=== PATIENT | female | born 1985 | race Caucasian/White ===

== ENCOUNTER 2020-11-13 15:29 | Outpatient (CLI) | payer OTHER, SELFPAY ==
--- NOTE | ~2020-11-13 | XR_ITS ---
XR hip LT min 2V DATE: 11/13/2020 15:58 INDICATION: Left hip pain. No injury. TECHNIQUE: AP, lateral, crosstable lateral views COMPARISON: None FINDINGS: No fracture or dislocation, avascular necrosis or bone destruction. Left hip joint space ap pears well preserved. IMPRESSION: Negative Reviewed, dictated and finalized at location A. IMPRESSION: Negative
== END 2020-11-13 15:30 | disposition home or self-care (01) ==
LOC: CHSIMG 15:38
DX: M25.552 Pain in left hip (principal)
CPT/HCPCS: 73502

== ENCOUNTER 2021-06-15 15:20 | Outpatient (CLI) | payer OTHER, SELFPAY ==
[2021-06-15 15:47] LABS: Basophils Absolute Auto 0.08 K/mm3 (0.00-0.10); Basophils Percent Auto 0.7 % (0.0-1.0); Eosinophils Absolute Auto 0.31 K/mm3 (0.02-0.50); Eosinophils Percent Auto 2.7 % (1.0-6.0); Hemoglobin 12.6 g/dL (12.0-15.0); Immature Granulocyte Absolute 0.05 K/mm3 (0.00-0.00); Immature Granulocyte Percent A 0.4 % (0.0-0.0); Lymphocytes Absolute Auto 3.31 K/mm3 (1.10-4.50); Lymphocytes Percent Auto 29.3 % (18.0-42.0); Mean Corpuscular HGB Conc 33.2 g/dL (32.0-36.0); Mean Corpuscular Hemoglobin 27.3 pg (27.0-31.0); Mean Corpuscular Volume 82.4 fL (78.0-102.0); Mean Platelet Volume 10.6 fl (9.2-11.8); Monocytes Absolute Auto 0.57 K/mm3 (0.10-0.90); Neutrophils Percent Auto 61.9 % (50.0-70.0); Platelet Count Result 308 K/mm3 (150-420); Red Blood Count 4.61 M/mm3 (4.20-5.40); Red Cell Distribution Width 12.8 % (11.6-14.4); White Blood Count 11.3 K/mm3 (4.8-10.8)
== END 2021-06-15 15:21 | disposition home or self-care (01) ==
LOC: CHSLAB 15:21
PROVIDERS: PCP Family Medicine; Visit Provider Obstetrics & Gynecology
DX: N92.0 Excessive and frequent menstruation with regular cycle (principal)
CPT/HCPCS: 36415; 85025

== ENCOUNTER 2021-08-03 10:45 | Outpatient (CLI) | payer OTHER, SELFPAY ==
--- NOTE | ~2021-08-03 | US_ITS ---
EXAMINATION: US pelvic complete w TV DATE: 08/03/2021 11:25 INDICATION: Irregular menses, adnexal mass TECHNIQUE: Multiple transabdominal and endovaginal sonographic images of the pelvis were obtained. COMPARISON: None. FINDINGS: The uterus measures 8.1 x 4.3 x 4.8 cm. The endometrial complex measures 14 mm. The right o vary is not visualized however no right adnexal abnormality is seen. The left ovary measures 2.3 x 1. 6 cm. There is an approximately 6.6 x 5.7 x 2.5 cm cystic lesion of the left adnexa.. There is normal vascular flow in the left ovary. There is no free fluid in the pelvis. IMPRESSION: 1. 6.6 cm simple cyst of the left adnexa. Follow-up pelvic ultrasound in 8-12 weeks is recommended. Reviewed, dictated and finalized at location B. HANT KEEPER IMPRESSION: 1. 6.6 cm simple cyst of the left adnexa. Follow-up pelvic ultrasound in 8-12 w [facility] is recommended.
== END 2021-08-03 10:46 | disposition home or self-care (01) ==
LOC: CHSIMG 10:46
PROVIDERS: PCP Family Medicine; Visit Provider Family Medicine
DX: N94.89 Other specified conditions associated with female genital organs and menstrual cycle (principal)
CPT/HCPCS: 76830; 76856

== ENCOUNTER 2023-03-19 19:48 | Emergency (ER) | payer OTHER, SELFPAY ==
--- NOTE | 2023-03-19 19:50 | ED.GENADULT ---
HPI - General Adult General Chief complaint: Unspecified Stated complaint: THRUSH Time Seen by Provider: 03/19/23 19:50 Source: patient Mode of arrival: ambulatory Limitations: no limitations History of Present Illness HPI narrative: 37-year-old female a history of diabetes mellitus, neuropathy presents to the ER with a 1 week history of - oral thrush . Thrush is present on her tongue. - mouth pain -- uncontrolled blood sugars Onset (ago): week(s) ( present for the past 1 week) Location: mouth Severity: mild Pain Consistency: constant Relieving factors: none Exacerbating factors: none Associated symptoms: denies other symptoms Related Data Allergies Allergy/AdvReac Type Severity Reaction Status Date / Time No Known Allergies Allergy Verified 03/19/23 19:50 Review of Systems Review of Systems: All systems reviewed & are unremarkable except as noted in HPI and below Constitutional: Constitutional: Reports as per HPI and Reports no additional constitutional complaints Eyes: Eyes: Reports as per HPI and Reports no additional eye complaints ENT: Reports system reviewed and no additional complaints, except as documented, Reports as per HPI and Reports mouth pain Comments: oral thrush Cardiovascular: Cardiovascular: Reports as per HPI and Reports no additional cardiovascular complaints Respiratory: Respiratory: Reports as per HPI and Reports no additional respiratory complaints Gastrointestinal: Gastrointestinal: Reports as per HPI and Reports no additional gastrointestinal complaints Genitourinary: Genitourinary: Reports no additional female genitourinary complaints Musculoskeletal: Musculoskeletal: Reports no additional musculoskeletal complaints and Reports as per HPI Integumentary/Breasts: Skin/Breast: Reports system reviewed and no additional complaints, except as docu and Reports as per HPI Neurologic: Reports system reviewed and no additional complaints, except as documented and Reports as per HPI Psychiatric: Psychiatric: Reports no additional psychiatric complaints and Reports as per HPI Endocrine: Endocrine: Reports polydipsia and Reports polyuria Hematologic/Lymphatic: Hematologic/Lymphatic: Reports no additional hematologic/lymphatic complaints and Reports as per HPI Allergic/Immunologic: Allergic/Immunologic: Reports no additional allergic/immunologic complaints and Reports as per HPI PMFSH Past Medical History Medical History (Updated 03/19/23 @ 20:16 by Guzman Aguirre MD) Diabetes mellitus Peripheral neuropathy Surgical History Surgical History (Updated 03/19/23 @ 20:09 by Guzman Aguirre MD) Hx of cholecystectomy Previous section Social History Social History (Updated 03/19/23 @ 20:09 by Guzman Aguirre MD) Social History: smoker Exam Narrative: hypertension with a blood pressure of 155/96. Const: General: cooperative and no acute distress Nutritional Appearance: average body habitus Orientation/consciousness: oriented to person and oriented to place HENMT: Head: normal to inspection, normocephalic and atraumatic Ears: hearing grossly normal bilaterally, external ears normal and TM's normal bilaterally Face/Nose/Sinus: Normal external nose present and Normal nares present Face and sinus: normal facial exam Mouth: Yes Normal oral and palatal mucosa present Teeth and gingiva: dentition normal (edentulous) Throat: posterior oropharynx normal Throat image: 1. Thrush on the tongue Eyes: General: appearance normal, both eyes and all related structures Visual Soler: normal visual soler by confrontation Conjunctivae: conjunctivae normal Sclera: sclerae normal Cornea: corneas normal Pupils: Equal, round and reactive pupils present EOM: EOMs intact bilaterally Neck: Neck: normal visual inspection, full ROM, no lymphadenopathy and no meningeal signs Thyroid: thyroid normal Chest: Chest palpation & inspection: normal inspectio
[2023-03-19 19:51] VITALS: BP 158/110; PULSE 101; RESP 18; TEMP 36.3; O2SAT 98
[2023-03-19 20:05] VITALS: BP 155/96
[2023-03-19] MEDS: NYSTATIN 100,000 UNITS/ML SUSP 5 ML ORAL.SUSP PO (20:08)
[2023-03-19 20:21] VITALS: BP 155/96; PULSE 101; RESP 18; TEMP 36.3; O2SAT 98
== END 2023-03-19 20:22 | disposition home or self-care (01) ==
PROVIDERS: Emergency Provider Internal Medicine Critical Care Medicine; PCP Family Medicine
DX: B37.0 Candidal stomatitis (principal); E10.40 Type 1 diabetes mellitus with diabetic neuropathy, unspecified
CPT/HCPCS: 99283; A9270

== ENCOUNTER 2023-07-01 15:56 | Emergency (ER) | payer SELFPAY ==
--- NOTE | ~2023-07-01 | XR_ITS ---
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 RESULT: Lines, tubes, and devices: None. Lungs and pleura: Clear. Cardiomediastinal silhouette: Normal. Other: No acute osseous or upper abdominal finding. IMPRESSION: No acute cardiopulmonary process. Reviewed, dictated and finalized at location K. ER OPERATOR
[2023-07-01 15:59] VITALS: BP 152/95; PULSE 102; RESP 19; TEMP 36.5; O2SAT 100
--- NOTE | 2023-07-01 16:04 | ED.BACK ---
HPI - Back Pain/Injury General Chief Complaint: Abdominal Pain Stated Complaint: upper/lower back pain Time Seen by Provider: 07/01/23 16:01 Source: patient Mode of arrival: ambulatory Limitations: no limitations History of Present Illness HPI Narrative: patient is a 38-year-old female with type 2 diabetes versus type 1 diabetes and has a right back to front chest pain for the past 2 weeks. MD elicited complaint: back pain Onset (ago): week(s) (2) Timing: constant Severity: moderate Pain scale (0-10): 6 Similar Symptoms Previously: No Quality: burning, sharp and stabbing Location: thoracic spine and right upper back Radiation: chest ( Right) Exacerbating factors: none Relieving factors: none Context: other ( diabetic) Associated symptoms: denies other symptoms Treatments prior to arrival: other ( 10s unit without help) Work related injury: No Related Data Allergies Allergy/AdvReac Type Severity Reaction Status Date / Time No Known Allergies Allergy Verified 07/01/23 17:21 Review of Systems Review of Systems: All systems reviewed & are unremarkable except as noted in HPI and below Constitutional: Constitutional: Reports no additional constitutional complaints Eyes: Eyes: Reports no additional eye complaints ENT: Reports system reviewed and no additional complaints, except as documented Cardiovascular: Cardiovascular: Reports no additional cardiovascular complaints Respiratory: Respiratory: Reports no additional respiratory complaints Gastrointestinal: Gastrointestinal: Reports no additional gastrointestinal complaints Genitourinary: Genitourinary: Reports no additional female genitourinary complaints Musculoskeletal: Musculoskeletal: Reports no additional musculoskeletal complaints Integumentary/Breasts: Skin/Breast: Reports system reviewed and no additional complaints, except as docu Neurologic: Reports system reviewed and no additional complaints, except as documented Psychiatric: Psychiatric: Reports no additional psychiatric complaints Endocrine: Endocrine: Reports no additional endocrine complaints Hematologic/Lymphatic: Hematologic/Lymphatic: Reports no additional hematologic/lymphatic complaints Allergic/Immunologic: Allergic/Immunologic: Reports no additional allergic/immunologic complaints PMFSH Past Medical History Medical History Diabetes mellitus Peripheral neuropathy Surgical History Surgical History Hx of cholecystectomy Previous section Social History Social History Social History: smoker Exam Const: General: healthy appearing Nutritional Appearance: well nourished Orientation/consciousness: patient oriented x3 HENMT: Head: normal to inspection Ears: external ears normal Face/Nose/Sinus: Normal external nose present Eyes: Conjunctivae: conjunctivae normal Pupils: Equal, round and reactive pupils present EOM: EOMs intact bilaterally Neck: Neck: normal visual inspection Chest: Chest palpation & inspection: normal inspection of the chest and tenderness ( right upper back around to the right under the breast along rib line) Resp: Effort & Inspection: normal respiratory effort and not labored Auscultation: clear to auscultation bilaterally and no crackles Cardio: Rate: regular rate Rhythm: regular rhythm Heart sounds: no murmurs GI: Inspection: non-distended GI Palp: Yes Soft to palpation and No Tenderness to palpation present (GI) Auscultation: normal bowel sounds : General: Yes bladder normal to palpation Back/Spine/Pelvis: Back: no CVA tenderness Skin: General skin exam: normal color Rashes: no rashes Wounds: no wounds Neuro: General: patient oriented x3 Cranial nerves: Yes Nystagmus not present Speech: normal speech Extrem: General: normal to inspection Psych: Mental Statu
--- NOTE | 2023-07-01 16:20 | ECG_ITS ---
Measurements Intervals [place] Rate: 92 P: 17 UT: 159 QRS: 52 QRSD: 83 T: 33 QT: 360 QTc: 446 Interpretive Statements SINUS RHYTHM LOW QRS VOLTAGE IN EXTREMITY LEADS [QRS DEFLECTION < 0.5 mV IN LIMB LEADS] SEPTAL MYOCARDIAL INFARCTION , PROBABLY OLD [40+ ms Q WAVE IN V1/V2] NO PREVIOUS ECG AVAILABLE FOR COMPARISON Electronically Signed On 07-02-2023 14:58:50 SEWING SUPERVISOR by Ginger Guevara M.D.
[2023-07-01 16:24] LABS: Pregnancy On Board Control Positive; Urine Pregnancy Test Negative
[2023-07-01 16:25] LABS: Appearance Urine Slightly Cloudy (Clear); Bilirubin Urine Negative (Negative); Blood Urine 2+ (Negative); Color Urine Light Yellow (Yellow); Glucose Urine UA 3+ (Negative); Ketones Urine Trace (Negative); Leukocyte Esterase Ur Negative LEU/UL (Negative); Nitrate Urine Positive (Negative); Protein Urine Negative (Negative); Urobilinogen Urine 0.2 mg/dL (0.2-1.0); pH Urine 7.5 (5.0-8.0)
[2023-07-01 16:27] LABS: Add Urine Microscopic? YES; Bacteria Urine 3+ /hpf; Squamous Epithelial Cell Urine Rare /hpf (Few); WBC Urine None seen /hpf (0-3)
[2023-07-01 16:36] LABS: Basophils Absolute Auto 0.09 K/mm3 (0.00-0.10); Basophils Percent Auto 0.7 % (0.0-1.0); Eosinophils Absolute Auto 0.35 K/mm3 (0.02-0.50); Eosinophils Percent Auto 2.9 % (1.0-6.0); Hematocrit 40.6 % (35.0-49.0); Hemoglobin 13.9 g/dL (12.0-15.0); Immature Granulocyte Absolute 0.05 K/mm3 (0.00-0.00); Immature Granulocyte Percent A 0.4 % (0.0-0.0); Lymphocytes Absolute Auto 2.94 K/mm3 (1.10-4.50); Lymphocytes Percent Auto 24.3 % (18.0-42.0); Mean Corpuscular HGB Conc 34.2 g/dL (32.0-36.0); Mean Corpuscular Hemoglobin 27.7 pg (27.0-31.0); Mean Corpuscular Volume 80.9 fL (78.0-102.0); Mean Platelet Volume 10.7 fl (9.2-11.8); Monocytes Absolute Auto 0.69 K/mm3 (0.10-0.90); Monocytes Percent Auto 5.7 % (2.0-11.0); Platelet Count Result 298 K/mm3 (150-420); Red Blood Count 5.02 M/mm3 (4.20-5.40); Red Cell Distribution Width 12.9 % (11.6-14.4); White Blood Count 12.1 K/mm3 (4.8-10.8)
[2023-07-01 16:52] LABS: D Dimer < 0.19 mg/L (0.19-0.50)
[2023-07-01 16:53] LABS: Alkaline Phosphatase 126 U/L (46-116); Anion Gap 23 mmol/L (8-16); Bilirubin,Total 0.6 mg/dL (0.00-1.00); Blood Urea Nitrogen 7 mg/dL (7-18); Calcium 7.6 mg/dL (8.5-10.1); Carbon Dioxide 12 mmol/L (21-32); Chloride 93 mmol/L (98-108); Estimated Glomerular Filt Rate > 60; Lipase 35 U/L (16-77); Osmolality Calculated 281 mOsm/kg (285-295); Potassium 3.9 mmol/L (3.5-5.1); Sodium 128 mmol/L (136-145); Total Protein 7.1 g/dL (6.4-8.2); Troponin I 5.3 ng/L (0.00-60.4)
[2023-07-01 16:55] LABS: Acetone Small (Negative)
[2023-07-01 16:56] LABS: Glucose 409 mg/dL (70-99)
[2023-07-01] MEDS: INSULIN HUMAN REGULAR (*BKC) 1,000 UNITS/10 ML VIAL 8 UNITS IV PUSH (17:09)
[2023-07-01] MEDS: SODIUM CHLORIDE 0.9% IV 1,000 ML 999 ML IV CONT (17:09)
[2023-07-01 17:38] LABS: Aspartate Amino Transferase 150 U/L (15-37)
[2023-07-01 17:59] LABS: Glucose Point of Care 193 mg/dl (65-105)
[2023-07-01] MEDS: CEPHALEXIN 500 MG CAPSULE PO (18:35)
[2023-07-01 18:41] LABS: Anion Gap 22 mmol/L (8-16); Blood Urea Nitrogen 7 mg/dL (7-18); Calcium 7.3 mg/dL (8.5-10.1); Carbon Dioxide 12 mmol/L (21-32); Chloride 97 mmol/L (98-108); Estimated Glomerular Filt Rate > 60; Glucose 249 mg/dL (70-99); Osmolality Calculated 278 mOsm/kg (285-295); Sodium 131 mmol/L (136-145)
[2023-07-01 18:42] VITALS: BP 129/89; PULSE 84; RESP 19; O2SAT 98
[2023-07-01 18:47] LABS: Acetone Negative (Negative)
[2023-07-01 19:32] LABS: Device ROOM AIR; HCO3 VBG 24.3 mEq/l (24.0-30.0); PCO2 VBG 41.7 mmHg (42.0-48.0); PO2 VBG 37.4 mmHg (35.0-45.0); pH VBG 7.38 (7.33-7.43)
[2023-07-01 20:35] LABS: Glucose Point of Care 178 mg/dl (65-105)
[2023-07-01 20:37] VITALS: BP 135/81; PULSE 79; RESP 16; TEMP 36.7; O2SAT 98
[2023-07-01] MEDS: DEXTROSE 5%/0.45% SOD CHL 1,000 ML 125 ML IV CONT (20:42)
--- NOTE | 2023-07-03 14:28 | PC.NURSE ---
URINE CULTURE PRELIMINARY SHOWED +E COLI REVIEWED WITH DR WARNER AND ORDERS FOR BACTRIM DS BID FOR 7 DAYS GIVEN PT CONTACTED AND RX CALLED TO [facility] IN [place]
--- NOTE | 2023-07-04 12:25 | PC.NURSE ---
Final culture report, Escherichia coli, Patient put on bactrim yesterday. culture is susceptible, no change per Dr. Muller
== END 2023-07-01 21:17 | disposition short-term general hospital (02) ==
PROVIDERS: Emergency Provider Emergency Medicine; PCP Family Medicine
DX: G62.9 Polyneuropathy, unspecified (principal); E11.10 Type 2 diabetes mellitus with ketoacidosis without coma; E11.41 Type 2 diabetes mellitus with diabetic mononeuropathy; N30.01 Acute cystitis with hematuria
CPT/HCPCS: 36415; 71046; 80048; 80053; 81001; 81025; 82010; 82803; 82948; 83690; 84484; 85025; 85380; 87077; 87086; 87088; 87186; 93005; 96361; 96374; 99285; A9270; J1815; J7030

== ENCOUNTER 2023-07-01 22:33 | Observation (INO) | payer SELFPAY ==
--- NOTE | ~2023-07-01 | CT_ITS ---
Non-contrast CT scan of the Abdomen and Pelvis Clinical indication: Abdominal pain Technique: 2.5 mm axial scans were obtained through the abdomen and pelvis without intravenous or or al contrast. Dose reduction technique was used on this scan by utilizing automated exposure control a nd iterative reconstruction technique. The dose-length product (DLP) was 519.44 mGy-cm. Findings: Images through the lung bases reveal no abnormalities. There is no evidence of renal or ureteral calculi. The kidneys and the ureters are nondilated. The liver, spleen, pancreas, gallbladder, and adrenals appear normal. There is no aortic aneurysm. There is no evidence of bowel obstruction. Images through the pelvis were performed. Small amount of pelvic free fluid present. Urinary bladder unremarkable. No pelvic mass seen. Impression: Small amount of pelvic free fluid, nonspecific. No other significant findings. Reviewed, dictated and finalized at [facility]. ETING COMMUNICATIONS LEADER Impression: Small amount of pelvic free fluid, nonspecific. No other significant findings.
[2023-07-01 22:10] VITALS: BP 161/92; PULSE 96; RESP 16; TEMP 36.8; O2SAT 100; BMI 24.9
--- NOTE | 2023-07-01 22:30 | ADMGEN ---
This patient, Eduarda Payne, was admitted to Intensive Care Unit-4. Patient/family oriented to hospital policies and general routines including ID bracelet, bed and alarms, visiting hours, pain management, procedures, bathroom and other care routines, personal items, smoking policy, room service/diet, and visiting hours. Information on how to activate the Rapid Response Team has been discussed. Patient/Family are encouraged to report perceived risks to care and to ask questions if they do not understand what they are told or what they should do.
[2023-07-01 22:32] LABS: Glucose Point of Care 164 mg/dl (65-105)
[2023-07-01 22:49] LABS: Hematocrit 38.3 % (37.0-47.0); Hemoglobin 12.9 g/dL (12.0-15.0); Mean Corpuscular HGB Conc 33.7 g/dl (32-36); Mean Corpuscular Volume 83.1 fl (80-100); Mean Platelet Volume 10.7 fl (7.4-10.4); Platelet Count Result 253 k/mm3 (150-375); Red Blood Count 4.61 M/mm3 (4.2-5.4); Red Cell Distribution Width 13.2 % (11.5-14.5); White Blood Count 9.4 K/mm3 (4.5-10.0)
--- NOTE | 2023-07-01 22:57 | PM.IMHP ---
H&P: HPI History of Present Illness Date/Time: 07/01/23 22:57 Chief Complaint: Epigastric pain Narrative: This is a 38-year-old female with past medical history significant for insulin-dependent diabetes mellitus, tobacco dependence. Patient presents as a transfer from outside facility after presented to emergency room due to abdominal pain for 2 weeks denies any fevers, rigors, chills has not been using her Lantus insulin for a month or so. preliminary workup was significant for sodium 131 bicarb 12 anion gap 22. Patient was transfer to ICU. EXAMINATION:? XR chest 2V Exam Date/Time:? 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 Comparison:? None. RESULT: Lines, tubes, and devices:? None. Lungs and pleura:? Clear. Cardiomediastinal silhouette:? Normal. Other:? No acute osseous or upper abdominal finding. ? IMPRESSION: No acute cardiopulmonary process. Review of Systems Review of Systems: Abdominal pain Constitutional: Constitutional: Denies chills, Denies fever(s), Denies malaise, Reports poor appetite and Denies weakness Eyes: Eyes: Denies change in vision ENT: Denies dysphagia and Denies odynophagia Cardiovascular: Cardiovascular: Denies chest pain, Denies leg edema, Denies radiating jaw, neck or arm pain and Denies palpitations Respiratory: Respiratory: Denies cough and Denies dyspnea Gastrointestinal: Gastrointestinal: Reports abdominal pain, Denies dyspepsia, Denies heartburn, Denies diarrhea, Denies nausea and Denies vomiting Genitourinary: Genitourinary: Denies dysuria and Denies flank pain Musculoskeletal: Musculoskeletal: Denies myalgias and Denies muscle weakness Integumentary/Breasts: Skin/Breast: Denies rash Neurologic: Denies focal weakness and Denies Sensory deficit (Neuro) Psychiatric: Psychiatric: Reports no additional psychiatric complaints and Reports as per HPI Endocrine: Endocrine: Denies cold intolerance, Denies flushing, Denies heat intolerance, Denies polyphagia, Denies polydipsia and Denies palpitations Hematologic/Lymphatic: Hematologic/Lymphatic: Reports no additional hematologic/lymphatic complaints and Reports as per HPI Allergic/Immunologic: Allergic/Immunologic: Reports no additional allergic/immunologic complaints and Reports as per HPI [facility] Past Medical History Medical History (Updated 07/02/23 @ 02:11 by Melani Lang MD) Diabetes mellitus DKA, type 2 Peripheral neuropathy Surgical History Surgical History Hx of cholecystectomy Previous section Family History Family History (Updated 07/01/23 @ 22:26 by Darwin Vasquez RN) Father Hypertension Diabetes mellitus Mother Hypertension Diabetes mellitus Sibling Hypertension Diabetes mellitus Social History Social History Social History: smoker Smoking packs per day: 0.5 Smoking cigarettes per day: 10.0 Years smoked: 10 Smoking pack-years: 5.00 Smoking status: Current every day smoker Alcohol intake: former Substance use: never Do You Feel Safe in your Home?: Yes Lack of Transportation: No Lack of Food: Never True Current Housing: I Have Housing Concerned About Future Housing: No Difficulty Paying Gas/Electric Bills: No Difficulty Paying for Meds: No Currently Unemployed: No Education: High School Diploma/GED Difficulty w/ Childcare or Family Care: No Spiritual care concerns: No Meds Home Medications and Allergies Home Medications Medication Instructions Recorded Confirmed Type empagliflozin 10 mg tablet 10 mg PO DAILY 07/01/23 07/01/23 History (Jardiance) insulin glargine 100 unit/mL (3 30 unit subcut DAILY 07/01/23 07/01/23 History mL) subcutaneous pen (Lantus Solostar U-100 Insulin) insulin lispro 100 unit/mL 10 unit subcut DAILY 07/01/23 07/01/23 History subcutaneous pen
[2023-07-01 23:03] LABS: Alanine Aminotransferase 13 U/L (6-35); Albumin Level 3.4 g/dL (3.5-5.1); Alkaline Phosphatase 111 U/L (38-126); Anion Gap 4 mmol/L (8-16); Aspartate Amino Transferase 17 U/L (14-36); Bilirubin,Total 0.5 mg/dL (0.2-1.3); Blood Urea Nitrogen 7 mg/dL (7-17); Carbon Dioxide 21 mmol/L (22-30); Chloride 108 mmol/L (98-107); Estimated CRCL calculation 124 ml/min; Estimated Glomerular Filt Rate > 60; Glucose 143 mg/dL (65-110); Phosphorus 3.1 mg/dL (2.5-4.5); Potassium 3.7 mmol/L (3.4-5.0); Sodium 133 mmol/L (137-145)
[2023-07-01 23:17] LABS: Lipase 43 U/L (23-300)
[2023-07-01 23:23] LABS: Hemoglobin A1C 12.1 % (<5.7)
[2023-07-01] MEDS: HYDROmorphone HCL INJ (*CRX) 1 MG/ML SYR IV PUSH (23:31)
[2023-07-01] MEDS: INSULIN GLARGINE (*BKC) 100 UNITS/ML 30 UNITS SUB-Q (23:34)
[2023-07-01 23:48] VITALS: PULSE 83
[2023-07-01 23:51] VITALS: BP 143/93; PULSE 85; PULSE 89; RESP 14; RESP 16; O2SAT 100; O2SAT 98
--- NOTE | 2023-07-02 01:02 | ADMGEN ---
This patient, Eduarda Payne, was admitted to Intensive Care Unit-4 on 07/01/23 at 2153. Patient/family oriented to hospital policies and general routines including ID bracelet, bed and alarms, visiting hours, pain management, procedures, bathroom and other care routines, personal items, smoking policy, room service/diet, and visiting hours. Information on how to activate the Rapid Response Team has been discussed. Patient/Family are encouraged to report perceived risks to care and to ask questions if they do not understand what they are told or what they should do.
[2023-07-02 02:00] VITALS: BP 137/87; PULSE 78; RESP 14; O2SAT 97
[2023-07-02 02:01] LABS: Glucose Point of Care 150 mg/dl (65-105)
--- NOTE | 2023-07-02 02:50 | PC.NURSE ---
Patient transfer received from ICU via wheel chair at 0245 on 07/02/23. Report received from LENY Wisdom.
[2023-07-02 02:59] VITALS: BP 152/89; PULSE 84; RESP 17; TEMP 36.6; O2SAT 100
[2023-07-02 05:16] VITALS: BP 129/79; PULSE 86; RESP 16; TEMP 36.6; O2SAT 100
[2023-07-02 05:28] LABS: Hematocrit 37.9 % (37.0-47.0); Hemoglobin 12.6 g/dL (12.0-15.0); Mean Corpuscular HGB Conc 33.2 g/dl (32-36); Mean Corpuscular Hemoglobin 27.9 pg (26-34); Mean Platelet Volume 10.9 fl (7.4-10.4); Platelet Count Result 241 k/mm3 (150-375); Red Blood Count 4.51 M/mm3 (4.2-5.4); Red Cell Distribution Width 13.2 % (11.5-14.5); White Blood Count 9.9 K/mm3 (4.5-10.0)
[2023-07-02 05:36] LABS: Anion Gap 6 mmol/L (8-16); Blood Urea Nitrogen 6 mg/dL (7-17); Calcium 8.1 mg/dL (8.4-10.2); Carbon Dioxide 20 mmol/L (22-30); Chloride 108 mmol/L (98-107); Estimated CRCL calculation 150 ml/min; Estimated Glomerular Filt Rate > 60; Glucose 139 mg/dL (65-110); Potassium 3.9 mmol/L (3.4-5.0); Sodium 134 mmol/L (137-145)
[2023-07-02] MEDS: ACETAMINOPHEN 500 MG TABLET 1000 MG PO (05:53)
[2023-07-02 06:03] LABS: Lactic Acid Reflex 0.8 mmol/L (0.7-2.0)
[2023-07-02 08:36] LABS: Glucose Point of Care 193 mg/dl (65-105)
[2023-07-02 09:48] LABS: LDL Cholesterol Direct 38 mg/dL
[2023-07-02 09:50] VITALS: BP 119/80; PULSE 88; RESP 16; TEMP 36.6; O2SAT 100
[2023-07-02 11:04] LABS: Triglycerides > 2625 mg/dL (<150)
[2023-07-02 11:07] LABS: Cholesterol 297 mg/dL (0-200)
--- NOTE | 2023-07-02 11:45 | PM.DS ---
DS: Admitting Diagnosis Discharge Date 07/02/2023 Admitting Diagnosis Hyperglycemia DS: Discharge Diagnosis Discharge Diagnosis (1) DKA, type 2: Qualifiers: Diabetes mellitus complication detail: without coma Qualified Code(s): E11.10 - Type 2 diabetes mellitus with ketoacidosis without coma Code(s): E11.10 - Type 2 diabetes mellitus with ketoacidosis without coma Status: Inactive (2) Diabetes mellitus: Qualifiers: Diabetes mellitus complication detail: with mononeuropathy Diabetes mellitus complication status: with neurologic complications Diabetes mellitus residential insulin use: with terminal operations manager use Diabetes mellitus type: type 2 Qualified Code(s): E11.41 - Type 2 diabetes mellitus with diabetic mononeuropathy; Z79.4 - long term acute care registered nurse (current) use of insulin Code(s): E11.9 - Type 2 diabetes mellitus without complications Status: Acute Assessment and Plan: resume home meds (3) Hyperglycemia due to diabetes mellitus: Code(s): E11.65 - Type 2 diabetes mellitus with hyperglycemia Status: Acute (4) Hypertriglyceridemia: Code(s): E78.1 - Pure hyperglyceridemia Status: Acute (5) Hyperlipidemia: Qualifiers: Hyperlipidemia type: mixed hyperlipidemia Qualified Code(s): E78.2 - Mixed hyperlipidemia Code(s): E78.5 - Hyperlipidemia, unspecified Status: Acute (6) Non compliance w medication regimen: Code(s): Z91.148 - Patient's other noncompliance with medication regimen for other reason Status: Acute DS: Summary Hospital Course Reason for hospitalization: Hyperglycemia/Type II DKA Hospital Course: Chief Complaint: Epigastric pain Narrative: ?This is a 38-year-old female with past medical history significant for insulin-dependent diabetes mellitus, tobacco dependence.? Patient presents as a transfer from outside facility after presented to emergency room due to abdominal pain? for 2 weeks denies any fevers, rigors, chills has not been using her Lantus insulin for a month or so. preliminary workup was significant for sodium 131 bicarb 12 anion gap 22, BS 193.? Patient was transfer to ICU. Patient responded well to IV insulin and improved overnight. Patient BS was then regulated with home dosing of insulin and Gap closed. Patient reports she has not been taking her insulin but has some at home. Lipid panel showed triglycerides >2500 in overall cholesterol 297 initiated patient atorvastatin. Patient was educated on the need for medication compliance as well as diabetic Education to include exercise and diet and regular monitoring blood sugar. Patient was discharged home to follow-up with primary care physician will need follow-up A1c in 3 months. Status at Discharge Functional status at discharge: independent ambulation Overall status at discharge: patient is back to baseline Time Spent with Patient Time attestation: Total time spent providing and/or coordinating discharge services: Exam Narrative: patient is laying in bed Const: General: comfortable, no acute distress, well developed, alert, awake and average body habitus Nutritional Appearance: average body habitus Orientation/consciousness: patient oriented x3 Other: well-appearing HENMT: Head: normal to inspection, normocephalic and atraumatic Ears: hearing grossly normal bilaterally Face/Nose/Sinus: normal facial exam Face and sinus: normal facial exam Eyes: General: appearance normal, both eyes and all related structures Pupils: Equal, round and reactive pupils present EOM: EOMs intact bilaterally Neck: Neck: full ROM, no lymphadenopathy and no JVD Thyroid: thyroid normal Lymphatic: no lymphadenopathy noted Resp: Effort & Inspection: normal respiratory effort and able to speak in complete sentences Auscultation: clear to auscultation bilaterally Cardio: Jugular venous distension: no JVD Rate: regular rate Rhythm: regular rh
[2023-07-02 12:27] LABS: Glucose Point of Care 149 mg/dl (65-105)
== END 2023-07-02 13:15 | disposition home or self-care (01) ==
LOC: ANHICU 07-02 01:00 → ANH2MED 07-02 11:44 → ANHICU 07-03 07:53 → ANH2MED 07-03 07:53
PROVIDERS: Internal Medicine; Nurse Practitioner Family; Admitting Provider Internal Medicine; PCP Family Medicine; Visit Provider Internal Medicine
DX: E11.10 Type 2 diabetes mellitus with ketoacidosis without coma (principal); E11.42 Type 2 diabetes mellitus with diabetic polyneuropathy; E11.65 Type 2 diabetes mellitus with hyperglycemia; E78.2 Mixed hyperlipidemia; E78.1 Pure hyperglyceridemia; Z91.148 Patient's other noncompliance with medication regimen for other reason; F17.210 Nicotine dependence, cigarettes, uncomplicated; Z79.4 Long term (current) use of insulin; Z79.84 Long term (current) use of oral hypoglycemic drugs; Z79.899 Other long term (current) drug therapy; Z83.3 Family history of diabetes mellitus
CPT/HCPCS: 36415; 74176; 80048; 80053; 80061; 82948; 83036; 83605; 83690; 83735; 84100; 85027; A9270; G0378; G0379; J1170; J1815

== ENCOUNTER 2024-09-02 00:14 | Emergency (ER) | payer SELFPAY ==
[2024-09-02 00:18] VITALS: BP 177/96; PULSE 102; RESP 20; TEMP 36.6; O2SAT 100
[2024-09-02 00:26] LABS: Glucose Point of Care 281 mg/dl (65-105)
[2024-09-02 02:12] VITALS: BP 146/86; PULSE 89; RESP 16; TEMP 36.7; O2SAT 99
[2024-09-02] MEDS: SODIUM CHLORIDE 0.9% IV 1,000 ML 999 ML IV CONT ×2 (02:42)
[2024-09-02 02:50] LABS: Basophils Absolute Auto 0.1 K/mm3 (0.0-0.1); Basophils Percent Auto 0.9 % (0.2-1.2); Eosinophils Absolute Auto 0.3 K/mm3 (0-0.3); Eosinophils Percent Auto 2.8 % (0-4.4); Hematocrit 36.6 % (37.0-47.0); Hemoglobin 12.8 g/dL (12.0-15.0); Immature Granulocyte Absolute 0.06 K/mm3 (0.00-0.031); Immature Granulocyte Percent A 0.5 % (0-0.5); Lymphocytes Absolute Auto 4.44 K/mm3 (0.9-3.2); Lymphocytes Percent Auto 38.3 % (18.3-44.2); Mean Corpuscular Hemoglobin 30.7 pg (26-34); Mean Corpuscular Volume 87.8 fl (80-100); Mean Platelet Volume 10.9 fl (7.4-10.4); Monocytes Absolute Auto 0.7 K/mm3 (0.1-0.6); Monocytes Percent Auto 5.9 % (2.6-8.5); Neutrophils Percent Auto 51.6 % (45.5-73.1); Platelet Count Result 247 k/mm3 (150-375); Red Blood Count 4.17 M/mm3 (4.2-5.4); Red Cell Distribution Width 13.6 % (11.5-14.5); White Blood Count 11.6 K/mm3 (4.5-10.0)
[2024-09-02 02:51] LABS: BEDSIDEPREGUCG Negative (Negative)
[2024-09-02 02:54] LABS: Add Urine Microscopic? YES; Appearance Urine Cloudy (Clear); Bacteria Urine 4+ /hpf; Bilirubin Urine Negative (Negative); Blood Urine Negative (Negative); Color Urine Yellow (Yellow); Glucose Urine UA 3+ mg/dL (Negative); Ketones Urine Trace mg/dL (Negative); Leukocyte Esterase Ur 1+ LEU/UL (Negative); Nitrate Urine Negative (Negative); Protein Urine 1+ mg/dL (Negative); RBC Urine 0-2 /hpf (0-2); Specific Grav Ur 1.028 (1.001-1.035); Squamous Epithelial Cell Urine None Seen /hpf (Few); Urobilinogen Urine 0.2 mg/dL (<2.0); WBC Urine >100 /hpf (0-3); pH Urine 5.5 (5.0-9.0)
--- OUTSIDE RECORDS SUMMARY | 2024-09-02 03:12 | XMS_ITS | Clinical Summary ---
Author Organization [facility] Address [address] [place] [address] Care Team Providers Care Shorer Name Role Phone Angelo Dickson MD Primary Care Provider Allergies No known active allergies Medications gabapentin 600 MG tablet Take by mouth 3 (three) times daily. Active levothyroxine 50 MCG tablet Active metFORMIN 1000 MG tablet Active NON FORMULARYIndica tions:PT STATES IS ALSO ON LISINOPRIL, JANUVIA, LORATIDINE, ATORVASTATIN, DULOXITINE Indications: PT STATES IS ALSO ON LISINOPRIL, JANUVIA, LORATIDINE, ATORVASTATIN, DULOXITINE Active orphenadrine ER 100 MG TABLET SR 12 HR 12 hr tablet Take 1 tablet (100 mg total) by mouth 2 (two) times daily. 28 tablet 0 Active levothyroxine 137 MCG tablet 2 Active lisinopril 5 MG tablet 2 Active JANUVIA 100 MG tablet 1 Active LEVEMIR FLEXTOUCH 100 UNIT/ML flextouch PEN 2 Active glimepiride 4 MG tablet 2 Active gemfibrozil 600 MG tablet 2 Active fenofibrate 145 MG tablet 1 Active DULoxetine 30 MG capsule 2 Active atorvastatin 80 MG tablet 2 Active albuterol sulfate HFA 108 (90 Base) MCG/ACT inhaler INHALE 2 PUFFS BY MOUTH EVERY 4 TO 6 HOURS NEEDED FOR COUGH OR WHEEZING Active Active Problems No known active problems Family History Medical History Relation Comments Diabetes Father Heart Disease Father Diabetes Mother Heart Disease Mother Hyperlipidemia Mother Hypertension Mother Stroke Mother Diabetes Sister Thyroid Disease Sister Relation Status Comments Father Mother Sister Alive Social History Tobacco Use Types Packs/Day Years Used Date Smoking Tobacco: Every Day Cigarettes Smokeless Tobacco: Never Alcohol Use Standard Drinks/Week Comments Yes 0 (1 standard drink = 0.6 oz pur e alcohol) rare Comments No Sex and Gender Information Value Date Recorded Sex Assigned at Not on file Legal Sex Female 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 Gender Identity Not on file Sexual Orientation Not on file Last Filed Vital Signs Vital Sign Reading Time Taken Comments Blood Pressure 143/102 07/29/2021 9:49 PM MACHINE PACK ASSEMBLER Pulse 108 07/29/2021 9:49 PM MACHINE PACK ASSEMBLER Temperature 36.8 C (98.3 F) 07/29/2021 9:49 PM MACHINE PACK ASSEMBLER Respiratory Rate 18 07/29/2021 9:49 PM MACHINE PACK ASSEMBLER Oxygen Saturation 100% 07/30/2021 1:30 AM MACHINE PACK ASSEMBLER Inhaled Oxygen Concentration - - Weight 75.3 kg (166 lb) 07/29/2021 9:49 PM MACHINE PACK ASSEMBLER Height 168.9 cm (5' 6.5 ) 07/29/2021 9:49 PM MACHINE PACK ASSEMBLER Body Mass Index 26.39 07/29/2021 9:49 PM MACHINE PACK ASSEMBLER Plan of Treatment Health Maintenance Due Date Last Done Comments Cervical Cancer Screening Pap Smear (Age 30 to 64) Every 3 Years 1985 Annual Physical 1988 Pneumococcal Vaccine: Pediatrics (0 to 5 Years) and At-Risk Patients (6 to 64 Years) (1 of 2 - PCV) 1991 Hepatitis C 2003 DTaP, Tdap and Td Vaccines (1 - Tdap) 2004 02/01/1991, 02/24/1989, 06/28/1986, Additional history exists Hepatitis B Vaccines (1 of 3 - 19+ 3-dose series) 2004 Cervical Cancer Screening Pap with HPV Testing (Age 30 to 64) Every 5 Years 2015 Cervical Cancer Screening with HPV 2015 COVID-19 Vaccine ( - 2023-25 season) 2024 HPV Vaccines Aged Out No longer eligi ble based on patient's age to complete this topic Meningococcal B Vaccine Aged Out No l onger eligible based on patient's age to complete this topic Meningococcal Vaccine Aged Out No milka koko eligible based on patient's age to complete this topic RSV Immunizations Under 20 Months Aged Out No longer eligible based on patient's age to complete this topic Insurance Care Teams Shorer Relationship Specialty Start Date End Date Angelo Dicskon MD [address] [place] [address] PCP - General FAMILY PRACTICE 11/02/18
--- OUTSIDE RECORDS SUMMARY | 2024-09-02 03:12 | XMS_ITS | Encounter Summary ---
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
[2024-09-02 03:14] LABS: Lipase 76 U/L (23-300); Magnesium 1.5 mg/dL (1.6-2.3); Phosphorus 4.4 mg/dL (2.5-4.5)
[2024-09-02 03:15] LABS: Alanine Aminotransferase 17 U/L (6-35); Albumin Level 3.8 g/dL (3.5-5.1); Alkaline Phosphatase 126 U/L (38-126); Anion Gap 8 mmol/L (4-12); Aspartate Amino Transferase 26 U/L (14-36); Bilirubin,Total 0.5 mg/dL (0.2-1.3); Blood Urea Nitrogen 11 mg/dL (7-17); Calcium 9.3 mg/dL (8.4-10.2); Carbon Dioxide 27 mmol/L (22-30); Chloride 99 mmol/L (98-107); Creatine Kinase 685 U/L (30-135); Estimated CRCL calculation 97 ml/min; Estimated Glomerular Filt Rate > 60; Glucose 156 mg/dL (65-110); Potassium 3.8 mmol/L (3.4-5.0); Sodium 134 mmol/L (137-145)
[2024-09-02 03:16] LABS: Lactic Acid Reflex 1.1 mmol/L (0.7-2.0)
[2024-09-02 03:22] VITALS: BP 138/96; PULSE 88; RESP 17; TEMP 36.4; O2SAT 99
[2024-09-02 03:22] LABS: Beta-Hydroxybutyrate/Acetoacetate 0.06 mmol/L (0.02-0.27)
[2024-09-02] MEDS: MAGNESIUM SULF 2 GM/WATER 50ML 2 GM/50 ML BAG IVPB (03:36)
[2024-09-02 03:54] LABS: Glucose Point of Care 134 mg/dl (65-105)
--- NOTE | 2024-09-02 03:54 | ED.GENADULT ---
HPI - General Adult General Chief complaint: Unspecified Stated complaint: high blood sugar Time Seen by Provider: 09/02/24 02:07 History of Present Illness HPI narrative: Patient 39-year-old female who presents emergency department chief complaint of elevated blood sugars. Patient reports that she has not been taking her insulin or medications the way she is supposed to be patient states she has been having some muscle cramps and reports that her of blood sugars were running on the higher side patient does report that she has had DKA before the past is concerned she may be in DKA. Related Data Home Medications ?Medication ?Instructions ?Recorded ?Confirmed ?Last Taken ?Type empagliflozin 10 mg tablet 10 mg PO DAILY 07/01/23 07/01/23 Unknown History (Jardiance) insulin glargine 100 unit/mL (3 30 unit subcut DAILY 07/01/23 07/01/23 Unknown History mL) subcutaneous pen (Lantus Solostar U-100 Insulin) insulin lispro 100 unit/mL 10 unit subcut DAILY 07/01/23 07/01/23 Unknown History subcutaneous pen lisinopril 5 mg tablet 5 mg PO DAILY 07/01/23 07/01/23 Unknown History Allergies Allergy/AdvReac Type Severity Reaction Status Date / Time No Known Allergies Allergy Verified 09/02/24 02:14 Review of Systems Review of Systems: A 10 system review of systems was completed on the patient and is negative except for what is stated in the HPI. Nursing and ancillary documentation was reviewed. [facility] Past Medical History Medical History DKA, type 2 Peripheral neuropathy Diabetes mellitus Surgical History Surgical History Hx of cholecystectomy Previous section Family History Family History Father Hypertension Diabetes mellitus Mother Hypertension Diabetes mellitus Sibling Hypertension Diabetes mellitus Social History Social History Social History: smoker Smoking packs per day: 0.5 Smoking cigarettes per day: 10.0 Years smoked: 10 Smoking pack-years: 5.00 Smoking status: Current every day smoker Alcohol intake: former Substance use: never Do You Feel Safe in your Home?: Yes Lack of Transportation: No Lack of Food: Never True Current Housing: I Have Housing Concerned About Future Housing: No Difficulty Paying Gas/Electric Bills: No Difficulty Paying for Meds: No Currently Unemployed: No Education: High School Diploma/GED Difficulty w/ Childcare or Family Care: No Spiritual care concerns: No Exam Narrative: GENERAL: Well-appearing, well-nourished, and in no acute distress. HEAD: Normocephalic, atraumatic. EYES: PERRLA and EOMI. ENT: Nares clear, no rhinorrhea or epistaxis. Mucous membranes moist. NECK: Supple. CHEST: Clear to auscultation. No respiratory distress. HEART: Regular rate and rhythm. No murmur heard. Normal peripheral pulses. ABDOMEN: Soft, nontender, nondistended, normal active bowel sounds. EXTREMITIES: Normal range of motion. No edema. SKIN: Warm, dry, no rash. NEURO: No focal deficits. Alert and oriented x3. PSYCH: Normal mood and affect. Course Vital Signs Vital signs: Vital Signs Temperature 36.6 C 09/02/24 00:18 Pulse Rate 102 H 09/02/24 00:18 Respiratory Rate 20 09/02/24 00:18 Blood Pressure 177/96 H 09/02/24 00:18 Pulse Oximetry 100 09/02/24 00:18 Oxygen Delivery Room Air 09/02/24 00:18 Temperature 36.4 C 09/02/24 03:22 Pulse Rate 88 09/02/24 03:22 Respiratory Rate 17 09/02/24 03:22 Blood Pressure 138/96 H 09/02/24 03:22 Pulse Oximetry 99 09/02/24 03:22 Oxygen Delivery Room Air 09/02/24 00:18 Medical Decision Making [facility] Narrative Medical decision making narrative: Differential diagnosis includes infectious process, noncompliance, DKA, HHS Laboratory studies were obtained on the patient which showed a serum blood sugar of 156 lactic acid was 1.1 beta hydroxybutyrate was normal anion gap was normal Urinalysis was positive for urinary tract infection CPK was slightly elevated but less than 1000 Patient received IV fluids in the emergency department Patient be discharged home on Keflex and should follow up with primary care Vital Signs Vital Signs: Vital Signs Temperature 36.6 C 09/02/24 00:18 Pulse Rate 102 H 09/02/24 00:18 Respiratory Rate 20 09/02/24 00:18 Blood Pressure 177/96 H 09/02/24 00:18 Pulse Oximetry 100 09/02/24 00:18 Oxygen Delivery Room Air 09/02/24 00:18 Temperature 36.4 C 09/02/24 03:22 Pulse Rate 88 09/02/24 03:22 Respiratory Rate 17 09/02/24 03:22 Blood Pressure 138/96 H 09/02/24 03:22 Pulse Oximetry 99 09/02/24 03:22 Oxygen Delivery Room Air 09/02/24 00:18 Lab Data 09/02/24 02:43 09/02/24 02:43 Labs: Lab Results 09/02/24 09/02/24 09/02/24 Range/Units 00:24 02:41 02:43 WBC 11.6 H (4.5-10.0) K/mm3 RBC 4.17 L (4.2-5.4) M/mm3 Hgb 12.8 (12.0-15.0) g/dL Hct 36.6 L (37.0-47.0) % MCV 87.8 (80-100) fl MCH 30.7 (26-34) pg MCHC 35.0 (32-36) g/dl RDW 13.6 (11.5-14.5) % Plt Count 247 (150-375) k/mm3 MPV 10.9 H (7.4-10.4) fl Immature Gran % (Auto) 0.5 (0-0.5) % Neut % (Auto) 51.6 (45.5-73.1) % Lymph % (Auto) 38.3 (18.3-44.2) % [place] % (Auto) 5.9 (2.6-8.5) % Eos % (Auto) 2.8 (0-4.4) % Baso % (Auto) 0.9 (0.2-1.2) % Lymph # (Auto) 4.44 H (0.9-3.2) K/mm3 [place] # (Auto) 0.7 H (0.1-0.6) K/mm3 Eos # (Auto) 0.3 (0-0.3) K/mm3 Baso # (Auto) 0.1 (0.0-0.1) K/mm3 Abs Immat Gran (auto) 0.06 H (0.00-0.031) K/mm3 Absolute Neuts (auto) 6.0 (1.3-6.7) K/mm3 Absolute Nucleated RBC 0.000 (0.0-0.012) K/mm3 Nucleated RBC % 0.0 (0.0-0.2) % Sodium 134 L (137-145) mmol/L Potassium 3.8 (3.4-5.0) mmol/L Chloride 99 (98-107) mmol/L Carbon Dioxide 27 (22-30) mmol/L Anion Gap 8 (4-12) mmol/L BUN 11 D (7-17) mg/dL Creatinine 0.74 (0.7-1.0) mg/dL Estim Creat Clear Calc 97 ml/min Estimated GFR > 60 (59 - ) Glucose 156 H (65-110) mg/dL POC Capillary Glucose 281 H (65-105) mg/dl Lactic Acid 1.1 (0.7-2.0) mmol/L Calcium 9.3 (8.4-10.2) mg/dL Phosphorus 4.4 (2.5-4.5) mg/dL Magnesium 1.5 L (1.6-2.3) mg/dL Total Bilirubin 0.5 (0.2-1.3) mg/dL AST 26 (14-36) U/L ALT 17 (6-35) U/L Alkaline Phosphatase 126 (38-126) U/L Total Creatine Kinase 685 H (30-135) U/L Total Protein 8.0 (6.3-8.2) g/dL Albumin 3.8 (3.5-5.1) g/dL Lipase 76 (23-300) U/L Beta-Hydroxybutyrate/Acetoacetate 0.06 (0.02-0.27) mmol/L Urine Color Yellow (Yellow) Urine Appearance Cloudy H (Clear) Urine pH 5.5 (5.0-9.0) Ur Specific [place] 1.028 (1.001-1.035) Urine Protein 1+ H (Negative) mg/dL Urine Glucose (UA) 3+ H (Negative) mg/dL Urine Ketones Trace H (Negative) mg/dL Ur Blood (Man) Negative (Negative) Urine Nitrate Negative (Negative) Urine Bilirubin Negative (Negative) Urine Urobilinogen 0.2 (<2.0) mg/dL Leukocyte Esterase Rfl 1+ H (Negative) ADRYAN/UL Urine RBC 0-2 (0-2) /hpf Urine WBC >100 H (0-3) /hpf Ur Squamous Epith Cells None seen (Few) /hpf Urine Bacteria 4+ H /hpf Urine Casts 3-5 POC Urine HCG, Qual (Negative) 09/02/24 Range/Units 02:49 WBC (4.5-10.0) K/mm3 RBC (4.2-5.4) M/mm3 Hgb (12.0-15.0) g/dL Hct (37.0-47.0) % MCV (80-100) fl MCH (26-34) pg MCHC (32-36) g/dl RDW (11.5-14.5) % Plt Count (150-375) k/mm3 MPV (7.4-10.4) fl Immature Gran % (Auto) (0-0.5) % Neut % (Auto) (45.5-73.1) % Lymph % (Auto) (18.3-44.2) % [place] % (Auto) (2.6-8.5) % Eos % (Auto) (0-4.4) % Baso % (Auto) (0.2-1.2) % Lymph # (Auto) (0.9-3.2) K/mm3 [place] # (Auto) (0.1-0.6) K/mm3 Eos # (Auto) (0-0.3) K/mm3 Baso # (Auto) (0.0-0.1) K/mm3 Abs Immat Gran (auto) (0.00-0.031) K/mm3 Absolute Neuts (auto) (1.3-6.7) K/mm3 Absolute Nucleated RBC (0.0-0.012) K/mm3 Nucleated RBC % (0.0-0.2) % Sodium (137-145) mmol/L Potassium (3.4-5.0) mmol/L Chloride (98-107) mmol/L Carbon Dioxide (22-30) mmol/L Anion Gap (4-12) mmol/L BUN (7-17) mg/dL Creatinine (0.7-1.0) mg/dL Estim Creat Clear Calc ml/min Estimated GFR (59 - ) Glucose (65-110) mg/dL POC Capillary Glucose (65-105) mg/dl Lactic Acid (0.7-2.0) mmol/L Calcium (8.4-10.2) mg/dL Phosphorus (2.5-4.5) mg/dL Magnesium (1.6-2.3) mg/dL Total Bilirubin (0.2-1.3) mg/dL AST (14-36) U/L ALT (6-35) U/L Alkaline Phosphatase (38-126) U/L Total Creatine Kinase (30-135) U/L Total Protein (6.3-8.2) g/dL Albumin (3.5-5.1) g/dL Lipase (23-300) U/L Beta-Hydroxybutyrate/Acetoacetate (0.02-0.27) mmol/L Urine Color (Yellow) Urine Appearance (Clear) Urine pH (5.0-9.0) Ur Specific [place] (1.001-1.035) Urine Protein (Negative) mg/dL Urine Glucose (UA) (Negative) mg/dL Urine Ketones (Negative) mg/dL Ur Blood (Man) (Negative) Urine Nitrate (Negative) Urine Bilirubin (Negative) Urine Urobilinogen (<2.0) mg/dL Leukocyte Esterase Rfl (Negative) ADRYAN/UL Urine RBC (0-2) /hpf Urine WBC (0-3) /hpf Ur Squamous Epith Cells (Few) /hpf Urine Bacteria /hpf Urine Casts POC Urine HCG, Qual Negative (Negative) Discharge Plan Discharge Clinical Impression: Hyperglycemia due to diabetes mellitus, UTI (urinary tract infection) Patient Disposition: Home Condition: Stable Instructions: Antibiotic Form, Urinary Tract Infection in Women (ED), Diabetic Hyperglycemia (ED) Additional Instructions: Please follow-up with primary care as soon as possible. Please take your medications as prescribed your test today did not show any evidence of diabetic ketoacidosis. Please call your primary doctor in the morning to schedule a follow-up appointment as soon as possible Patient Language: Mauritian Prescriptions: No Action lisinopril 5 mg Tablet 5 mg PO DAILY insulin lispro 100 unit/mL insulin pen 10 unit SUBCUT DAILY Rx Instructions: with largest meal insulin glargine [Lantus Solostar U-100 Insulin] 100 unit/mL (3 mL) insulin pen 30 unit SUBCUT DAILY Jardiance 10 mg tablet 10 mg PO DAILY atorvastatin 40 mg tablet 40 mg PO HS Qty: 30 0RF Follow-up/Referrals: Angelo Dickson M.D. [Primary Care Provider] - Time of Disposition: 03:59
[2024-09-02] MEDS: CEPHALEXIN 500 MG CAPSULE PO (05:24)
== END 2024-09-02 05:29 | disposition home or self-care (01) ==
PROVIDERS: Emergency Provider Emergency Medicine; PCP Family Medicine
DX: E11.65 Type 2 diabetes mellitus with hyperglycemia (principal); N39.0 Urinary tract infection, site not specified; E11.42 Type 2 diabetes mellitus with diabetic polyneuropathy; T38.3X6A Underdosing of insulin and oral hypoglycemic [antidiabetic] drugs, initial encounter; F17.210 Nicotine dependence, cigarettes, uncomplicated; Z90.49 Acquired absence of other specified parts of digestive tract; Z79.4 Long term (current) use of insulin; Z79.84 Long term (current) use of oral hypoglycemic drugs; Z79.899 Other long term (current) drug therapy
CPT/HCPCS: 36415; 80053; 81001; 81025; 82010; 82550; 82948; 83605; 83690; 83735; 84100; 85025; 87086; 87186; 96361; 96365; 96366; 99284; A9270; J3475; J7030

== ENCOUNTER 2024-10-11 14:26 | Outpatient (CLI) | payer OTHER, SELFPAY ==
--- NOTE | ~2024-10-11 | US_ITS ---
EXAM: PELVIC ULTRASOUND HISTORY: Heavy periods COMPARISON: 08/03/2021 Reference is also made to the CT examination of the abdomen and pelvis dated 07/02/2023 FINDINGS: UTERUS: 9.4 x 4.8 x 4.4 cm. The uterus is anteverted and anteflexed. The endometrial complex measures 3.5 mm. RIGHT OVARY: The right ovary is unremarkable in echogenicity and size measuring 2.7 x 2.6 x 2.1 cm. Dopplerable flow is identified. LEFT OVARY: The left ovary is increased in size measuring 6.7 x 5.2 x 5.9 cm Dopplerable flow is identified. Redemonstration of a cystic focus within the left adnexa, decreased in size from prior examination da mari 08/03/2021. This focus measures 2.1 x 3.6 x 5.2 cm on today's examination, compared with 2.5 x 6.6 x 5.7 cm on the previous study. Small amount of free fluid is identified within the pelvis. IMPRESSION: Redemonstration of a left adnexal cyst measuring 5.2 cm in greatest dimension, decreased in size from 2021, for which short-term follow-up is suggested, to ensure resolution. Reviewed, dictated and finalized at location A. IMPRESSION: Redemonstration of a left adnexal cyst measuring 5.2 cm in greatest dimension, decreased in size from 2021, for which short-term follow-up is suggested, to en sure resolution.
--- OUTSIDE RECORDS SUMMARY | 2024-10-11 14:30 | XMS_ITS | Clinical Summary ---
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 Gender Identity Not on file Sexual Orientation Not on file Last Filed Vital Signs Vital Sign Reading Time Taken Comments Blood Pressure 143/102 07/29/2021 9:49 PM RAILCAR BRAKE OPERATOR Pulse 108 07/29/2021 9:49 PM RAILCAR BRAKE OPERATOR Temperature 36.8 C (98.3 F) 07/29/2021 9:49 PM RAILCAR BRAKE OPERATOR Respiratory Rate 18 07/29/2021 9:49 PM RAILCAR BRAKE OPERATOR Oxygen Saturation 100% 07/30/2021 1:30 AM RAILCAR BRAKE OPERATOR Inhaled Oxygen Concentration - - Weight 75.3 kg (166 lb) 07/29/2021 9:49 PM RAILCAR BRAKE OPERATOR Height 168.9 cm (5' 6.5 ) 07/29/2021 9:49 PM RAILCAR BRAKE OPERATOR Body Mass Index 26.39 07/29/2021 9:49 PM RAILCAR BRAKE OPERATOR Plan of Treatment Health Maintenance Due Date Last Done Comments Cervical Cancer Screening Pap Smear (Age 30 to 64) Every 3 Years 1985 Annual Physical 1988 Hepatitis C 2003 DTaP, Tdap and Td Vaccines (1 - Tdap) 2004 02/01/1991, 02/24/1989, 06/28/1986, Additional history exists Hepatitis B Vaccines (1 of 3 - 19+ 3-dose series) 2004 Pneumococcal Vaccine: Pediatrics (0 to 5 Years) and At-Risk Patients (6 to 49 Years) (1 of 2 - PCV) 2004 Cervical Cancer Screening Pap with HPV Testing (Age 30 to 64) Every 5 Years 2015 Cervical Cancer Screening with HPV 2015 COVID-19 Vaccine ( - 2023- season) 2024 HPV Vaccines Aged Out No [...] to complete this topic Insurance Care Teams General Office Worker Relationship Specialty Start Date End Date Angelo Dickson MD [address] [place] [address] PCP - General FAMILY PRACTICE 11/02/18
--- OUTSIDE RECORDS SUMMARY | 2024-10-11 14:30 | XMS_ITS | Encounter Summary ---
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
== END 2024-10-11 14:27 | disposition home or self-care (01) ==
LOC: CHSIMG 14:28
PROVIDERS: PCP Family Medicine
DX: N92.0 Excessive and frequent menstruation with regular cycle (principal); N83.202 Unspecified ovarian cyst, left side
CPT/HCPCS: 76830; 76856

== ENCOUNTER 2024-12-25 16:09 | Emergency (ER) | payer OTHER, SELFPAY ==
--- NOTE | ~2024-12-25 | CT_ITS ---
EXAMINATION: CT abdomen pelvis wo con DATE: 12/25/2024 17:25 INDICATION: Left flank pain x2 weeks; worsening TECHNIQUE: Computed tomography (CT) of the abdomen and pelvis was performed without intravenous contr ast. Automated exposure control and iterative reconstruction technique were employed. The dose-length product was 400.16 mGy-cm. COMPARISON: 07/02/2023 10/11/2024. FINDINGS: Lower thorax: Calcified left lower lobe granuloma. Liver: Enlarged Biliary/Gallbladder: Gallbladder is absent. No bile duct dilation. Pancreas: No mass or duct dilation. Spleen: Enlarged Adrenals:No mass. Kidneys: No suspicious mass, obstructing stone, or hydronephrosis. GI tract: No small bowel dilation. Multiple loops of air-filled mildly dilated large bowel. Large vol ume of colonic feces Normal appendix. Mesentery/Peritoneum: No ascites, mass, or free air. Retroperitoneum: No mass. Atherosclerotic calcifications of intra-abdominal arterial vessels. Pelvis: Mostly empty urinary bladder. Normal uterus. 4.9 cm simple appearing left adnexal cyst. 2.7 a nd 2.3 cm simple appearing right adnexal cyst. The bilateral ovaries are difficult to discretely visu michelle.Approximately 4.8 cm masslike density in the midline pelvis, anterior to the uterus and superio r to the urinary bladder. Bilateral tubal ligation clips. Small volume free pelvic fluid, likely with in physiologic range. Soft Tissues: Soft tissues and body wall unremarkable. Bones: No acute osseous finding. IMPRESSION: Hepatosplenomegaly. Multiple loops of mildly dilated air-filled large bowel. Large volume of colonic feces. Simple appearing left adnexal cyst and multiple right adnexal cysts. Poorly visualized ovaries. Quest ionable midline pelvic soft tissue mass versus unopacified bowel. Consider transabdominal and endovag inal pelvic ultrasound for further evaluation. Reviewed, dictated and finalized at location K. IMPRESSION: Hepatosplenomegaly. Multiple loops of mildly dilated air-filled large bowel. Large volume of coloni c feces. Simple appearing left adnexal cyst and multiple right adnexal cysts. Poorly vis ualized ovaries. Questionable midline pelvic soft tissue mass versus unopacifie d bowel. Consider transabdominal and endovaginal pelvic ultrasound for further evaluation.
--- OUTSIDE RECORDS SUMMARY | 2024-12-25 16:12 | XMS_ITS | Clinical Summary ---
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 Gender Identity Not on file Sexual Orientation Not on file Last Filed Vital Signs Vital Sign Reading Time Taken Comments Blood Pressure 143/102 07/29/2021 9:49 PM CDL DRIVER Pulse 108 07/29/2021 9:49 PM CDL DRIVER Temperature 36.8 C (98.3 F) 07/29/2021 9:49 PM CDL DRIVER Respiratory Rate 18 07/29/2021 9:49 PM CDL DRIVER Oxygen Saturation 100% 07/30/2021 1:30 AM CDL DRIVER Inhaled Oxygen Concentration - - Weight 75.3 kg (166 lb) 07/29/2021 9:49 PM CDL DRIVER Height 168.9 cm (5' 6.5) 07/29/2021 9:49 PM CDL DRIVER Body Mass Index 26.39 07/29/2021 9:49 PM CDL DRIVER Plan of Treatment Health Maintenance Due Date [...] Years) (1 of 2 - PCV) 2004 HPV Vaccines (1 - 3-dose SCDM series) 2012 Cervical Cancer Screening Pap with HPV Testing (Age 30 to 64) Every 5 Years 2015 Cervical Cancer Screening with HPV 2015 COVID-19 Vaccine ( - 2023- season) 2024 Meningococcal B Vaccine Aged Out No l onger eligible based on patient's age to complete this topic Meningococcal Vaccine Aged Out No milka koko eligible based on patient's age to complete this topic RSV Immunizations Under 20 Months Aged Out No longer eligible based on patient's age to complete this topic [place] [address] [place] [address] Care Teams County Adviser Relationship Specialty Start Date End Date Angelo Dickson MD [address] [place] [address] PCP - General FAMILY PRACTICE 11/02/18
--- OUTSIDE RECORDS SUMMARY | 2024-12-25 16:12 | XMS_ITS | Encounter Summary ---
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
[2024-12-25 16:14] VITALS: BP 143/84; PULSE 113; RESP 18; TEMP 36.7; O2SAT 98
--- NOTE | 2024-12-25 16:15 | ED_ITS ---
HPI - Back Pain/Injury General Chief Complaint: Back Pain/Injury Stated Complaint: back pain Time Seen by Provider: 12/25/24 16:14 Source: patient Mode of arrival: ambulatory Limitations: no limitations History of Present Illness HPI Narrative: 39-year-old female with a history of smoking, diabetes mellitus developed low back pain. She went to urgent care 2 weeks ago and was diagnosed to have urinary tract infection. The patient received Macrobid without any improvement. She is saw physician and was prescribed Bactrim. She has completed Bactrim and continues to have low back pain. -- pain is noted then lower back predominantly in the left flank. The pain radiates anteriorly to the left groin. No fever or chills. No dysuria or hematuria patient is currently on her menstrual period MD elicited complaint: back pain Onset (ago): week(s) ( Two weeks) Timing: intermittent Severity: moderate Similar Symptoms Previously: Yes Quality: aching Location: left flank Radiation: groin Exacerbating factors: none Relieving factors: none Associated symptoms: denies other symptoms Treatments prior to arrival: other ( Macrobid and subsequently Bactrim) Work related injury: No Related Data Home Medications ?Medication ?Instructions ?Recorded ?Confirmed ?Last Taken ?Type empagliflozin 10 mg tablet 10 mg PO DAILY 07/01/23 07/01/23 Unknown History (Jardiance) insulin glargine 100 unit/mL (3 30 unit subcut DAILY 07/01/23 07/01/23 Unknown History mL) subcutaneous pen (Lantus Solostar U-100 Insulin) insulin lispro 100 unit/mL 10 unit subcut DAILY 07/01/23 07/01/23 Unknown History subcutaneous pen lisinopril 5 mg tablet 5 mg PO DAILY 07/01/23 07/01/23 Unknown History Allergies Allergy/AdvReac Type Severity Reaction Status Date / Time No Known Allergies Allergy Verified 09/02/24 02:14 Review of Systems 2 Review of Systems: All systems reviewed & are unremarkable except as noted in HPI and below Constitutional: Constitutional: Reports as per HPI and Reports no additional constitutional complaints Eyes: Eyes: Reports as per HPI and Reports no additional eye complaints ENT: Reports system reviewed and no additional complaints, except as documented and Reports as per HPI Cardiovascular: Cardiovascular: Reports as per HPI and Reports no additional cardiovascular complaints Respiratory: Respiratory: Reports as per HPI and Reports no additional respiratory complaints Gastrointestinal: Gastrointestinal: Reports as per HPI and Reports no additional gastrointestinal complaints Genitourinary: Genitourinary: Reports no additional female genitourinary complaints, Reports as per HPI and Reports flank pain ( left flank pain) Musculoskeletal: Musculoskeletal: Reports no additional musculoskeletal complaints and Reports as per HPI Integumentary/Breasts: Skin/Breast: Reports system reviewed and no additional complaints, except as docu and Reports as per HPI Comments: right kat which cutaneous fibrosis Neurologic: Reports system reviewed and no additional complaints, except as documented and Reports as per HPI Psychiatric: Psychiatric: Reports no additional psychiatric complaints and Reports as per HPI Endocrine: Endocrine: Reports no additional endocrine complaints and Reports as per HPI Hematologic/Lymphatic: Hematologic/Lymphatic: Reports no additional hematologic/lymphatic complaints and Reports as per HPI Allergic/Immunologic: Allergic/Immunologic: Reports no additional allergic/immunologic complaints and Reports as per HPI PMFSH Past Medical History Medical History DKA, type 2 Peripheral neuropathy Diabetes mellitus Surgical History Surgical History Hx of cholecystectomy Previous section Family History Family History Father Hypertension Diabetes mellitus Mother Hypertension Diabetes mellitus Sibling Hypertension Diabetes mellitus Social History Social History Social History: smoker Smoking packs per day: 0.5 Smoking cigarettes per day: 10.0 Years smoked: 10 Smoking pack-years: 5.00 Smoking status: Current every day smoker Alcohol intake: former Substance use: never Do You Feel Safe in your Home?: Yes Lack of Transportation: No Lack of Food: Never True Current Housing: I Have Housing Concerned About Future Housing: No Difficulty Paying Gas/Electric Bills: No Difficulty Paying for Meds: No Currently Unemployed: No Education: High School Diploma/GED Difficulty w/ Childcare or Family Care: No Spiritual care concerns: No Exam 2 Narrative: vitals are stable. Afebrile Const: General: no acute distress Orientation/consciousness: patient oriented x3 Limitations: no limitations HENMT: Head: normal to inspection Ears: external ears normal F ji/Nose/Sinus: Normal external nose present Face and sinus: normal facial exam Mouth: Yes Normal oral and palatal mucosa present Throat: posterior oropharynx normal Eyes: Conjunctivae: conjunctivae normal Pupils: Equal, round and reactive pupils present EOM: EOMs intact bilaterally Direct Ophthalmoscopy: no photophobia Neck: Neck: normal visual inspection, no lymphadenopathy and no meningeal signs Chest: Chest palpation & inspection: normal inspection of the chest Resp: Effort & Inspection: normal respiratory effort Auscultation: clear to auscultation bilaterally Cardio: Rate: regular rate Rhythm: regular rhythm GI: Auscultation: normal bowel sounds Other: tenderness the left flank and left CVA angle. No rigidity / rebound. : General: Yes CVA tenderness Back/Spine/Pelvis: Back: CVA tenderness ( Left CVA tenderness) Skin: General skin exam: normal color Other: right# kat has cms X 6 cms hypopigmented skin lesions from a previous injury Neuro: General: patient oriented x3, moves all extremities, no meningeal signs, no focal motor deficits and CN's II-XI intact bilaterally Cranial nerves: Yes Nystagmus not present Speech: normal speech Extrem: General: normal to inspection and no clubbing, cyanosis or edema Psych: Mental Status: mental status grossly normal Affect: normal affect Attitude: cooperative Course Course Emergency Course: urinary tract infection- UA is negative for infection. Patient is currently on monthly period and hence UA appears positive. left flank pain-- patient has an elevated white cell count. CT revealed multiple adnexal cysts. Patient is also noted to have free fluid in the pelvis. Abdominal pain and free fluid in the pelvis could be suggestive of a rupture of an ovarian cyst. The patient does not have any signs of an infectious process since she is afebrile and without any peritoneal signs. 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 Will have the patient follow-up with service station operator to assess the nature of cyst. Hyperglycemia of 11.9 with elevated lactate. Vital Signs Vital signs: Vital Signs Temperature 36.7 C 12/25/24 16:14 Pulse Rate 113 H 12/25/24 16:14 Respiratory Rate 18 12/25/24 16:14 Blood Pressure 143/84 H 12/25/24 16:14 Pulse Oximetry 98 12/25/24 16:14 Oxygen Delivery Room Air 12/25/24 16:14 Temperature 36.7 C 12/25/24 16:14 Pulse Rate 113 H 12/25/24 16:14 Respiratory Rate 18 12/25/24 16:14 Blood Pressure 143/84 H 12/25/24 16:14 Pulse Oximetry 98 12/25/24 16:14 Oxygen Delivery Room Air 12/25/24 16:14 MDM - Back Pain/Injury MDM Narrative Medical decision making narrative: Hyperglycemia adnexal says Differential Diagnosis Differential diagnosis: Likely strain of lumbar region and renal colic Medical Records Attestation: I reviewed the patient's medical records. Lab Data Attestation: I reviewed the patient's lab results. 12/25/24 16:36 12/25/24 16:36 Labs: Lab Results 12/25/24 12/25/24 Range/Units 16:21 16:36 WBC 11.9 H (4.8-10.8) K/mm3 RBC 4.65 (4.20-5.40) M/mm3 Hgb 15.3 H (12.0-15.0) g/dL Hct 40.8 (35.0-49.0) % MCV 87.7 (78.0-102.0) fL MCH 32.9 H (27.0-31.0) pg MCHC 37.5 H (32-36) g/dL RDW 12.9 (11.6-14.4) % Plt Count 279 (150-420) K/mm3 MPV 10.9 (9.2-11.8) fl Immature Gran % (Auto) 0.4 H (0.0-0.0) % Neut % (Auto) 61.9 (50.0-70.0) % Lymph % (Auto) 25.7 (18.0-42.0) % [place] % (Auto) 7.9 (2.0-11.0) % Eos % (Auto) 3.3 (1.0-6.0) % Baso % (Auto) 0.8 (0.0-1.0) % Lymph # (Auto) 3.06 (1.10-4.50) K/mm3 [place] # (Auto) 0.94 H (0.10-0.90) K/mm3 Eos # (Auto) 0.39 (0.02-0.50) K/mm3 Baso # (Auto) 0.09 (0.00-0.10) K/mm3 Abs Immat Gran (auto) 0.05 H (0.00-0.00) K/mm3 Absolute Neuts (auto) 7.36 H (1.70-7.20) K/mm3 Absolute Nucleated RBC 0.00 (0.00-0.00) K/mm3 Nucleated RBC % 0.0 (0-0.0) % Sodium 129 L (137-145) mmol/L Potassium 4.1 (3.4-5.0) mmol/L Chloride 103 (98-107) mmol/L Carbon Dioxide 15 L (22-30) mmol/L Anion Gap 11 (4-12) mmol/L BUN 6 L D (7-17) mg/dL Creatinine 0.59 L (0.7-1.0) mg/dL Estim Creat Clear Calc 106 ml/min Estimated GFR > 60 (59 - ) Glucose 320 H (65-110) mg/dL Calculated Osmolality 277 L (285-295) mOsm/kg Lactic Acid 3.4 H (0.4-2.0) mmol/L Calcium 7.9 L (8.4-10.2) mg/dL Total Bilirubin 0.4 (0.2-1.3) mg/dL AST 24 (14-36) U/L ALT 21 (6-35) U/L Alkaline Phosphatase 125 (38-126) U/L Total Protein 6.9 (6.3-8.2) g/dL Albumin 3.2 L (3.5-5.1) g/dL Urine Color Light yellow (Yellow) Urine Appearance Clear (Clear) Urine pH 6.0 (5.0-8.0) Ur Specific [place] 1.020 (1.010-1.020) Urine Protein Trace H (Negative) Urine Glucose (UA) 3+ H (Negative) Urine Ketones Negative (Negative) Ur Blood (Man) 3+ H (Negative) Urine Nitrate Positive H (Negative) Urine Bilirubin Negative (Negative) Urine Urobilinogen 0.2 (0.2-1.0) mg/dL Leukocyte Esterase Rfl Negative (Negative) ADRYAN/UL Urine RBC 6-10 H (0-2) /hpf Urine WBC None seen (0-3) /hpf Ur Squamous Epith Cells Few (Few) /hpf Urine Bacteria Trace (None) /hpf Ur Oval Fat Bodies None (None) /lpf Urine Test Negative Discharge Plan Discharge Clinical Impression: Hyperglycemia due to diabetes mellitus, Adnexal cyst Patient Disposition: Home Condition: Stable Instructions: Antibiotic Form, Ovarian Cyst (ED), Diabetic Hyperglycemia (ED) Patient Language: Kazakh Prescriptions: No Action lisinopril 5 mg Tablet 5 mg PO DAILY insulin lispro 100 unit/mL insulin pen 10 unit SUBCUT DAILY Rx Instructions: with largest meal insulin glargine [Lantus Solostar U-100 Insulin] 100 unit/mL (3 mL) insulin pen 30 unit SUBCUT DAILY Jardiance 10 mg tablet 10 mg PO DAILY atorvastatin 40 mg tablet 40 mg PO HS Qty: 30 0RF Follow-up/Referrals: Angelo Dickson M.D. [Primary Care Provider] - Time of Disposition: 18:23
[2024-12-25 16:25] LABS: Add Urine Microscopic? YES; Appearance Urine Clear (Clear); Glucose Urine UA 3+ (Negative); Leukocyte Esterase Ur Negative LEU/UL (Negative); Nitrate Urine Positive (Negative); Specific Grav Ur 1.020 (1.010-1.020)
--- NOTE | 2024-12-25 16:27 | PC.NURSE ---
Lab at bedside
--- OUTSIDE RECORDS SUMMARY | 2024-12-25 16:35 | XMS_ITS | Clinical Summary ---
Author Organization [facility] Address [address] [place] [address] Care Team Providers Care Process Engineering Intern Name Role Phone Angelo Dickson MD Primary [...] on file Legal Sex Female 11:07 PM PAYROLL LEAD Gender Identity Not on file Sexual Orientation Not on file Last Filed Vital Signs Vital Sign Reading Time Taken Comments Blood Pressure 143/102 07/29/2021 9:49 PM PAYROLL LEAD Pulse 108 07/29/2021 9:49 PM PAYROLL LEAD Temperature 36.8 C (98.3 F) 07/29/2021 9:49 PM PAYROLL LEAD Respiratory Rate 18 07/29/2021 9:49 PM PAYROLL LEAD Oxygen Saturation 100% 07/30/2021 1:30 AM PAYROLL LEAD Inhaled Oxygen Concentration - - Weight 75.3 kg (166 lb) 07/29/2021 9:49 PM PAYROLL LEAD Height 168.9 cm (5' 6.5) 07/29/2021 9:49 PM PAYROLL LEAD Body Mass Index 26.39 07/29/2021 9:49 PM PAYROLL LEAD Plan of Treatment Health Maintenance Due Date [...] patient's age to complete this topic [place] [address] [place] [address] Care Teams Process Engineering Intern Relationship Specialty Start Date End Date Angelo Dickson MD [address] [place] [address] PCP - General FAMILY PRACTICE 11/02/18
--- OUTSIDE RECORDS SUMMARY | 2024-12-25 16:35 | XMS_ITS | Encounter Summary ---
Author Organization [facility] Address [address] [place] [address] Care Team Providers Care Gun Striper Name Role Phone Angelo Dickson MD Primary Care Provider Encounter Details Date Type Department Care Team (Late st Contact Info) Description 10/31/2018 Abstract [facility] CONVERSION [address] [place], [place] [id number] , Generic Conversion, Social History Tobacco Use Types Packs/Day Years Used Date Smoking Tobacco: Never Assessed Comments Unknown Sex and Gender Information Value Date Recorded Sex Assigned at Not on file Legal Sex Female 11:07 PM SAP BASIS ARCHITECT Gender Identity Not on file Sexual Orientation Not on file documented as of this encounter Plan of Treatment Not on file documented as of this encounter Visit Diagnoses Not on filedocumented in this encounter Care Teams Gun Striper Relationship Specialty Start Date End Date Angelo Dickson MD [address] [place] [id number] PCP - General FAMILY PRACTICE 11/02/18 documented as of this encounter
[2024-12-25 16:39] LABS: Pregnancy On Board Control Positive
[2024-12-25 16:41] LABS: Hematocrit 40.8 % (35.0-49.0); Hemoglobin 15.3 g/dL (12.0-15.0); Immature Granulocyte Percent A 0.4 % (0.0-0.0); Lymphocytes Absolute Auto 3.06 K/mm3 (1.10-4.50); Mean Corpuscular HGB Conc 37.5 g/dL (32-36); Mean Corpuscular Hemoglobin 32.9 pg (27.0-31.0); Mean Corpuscular Volume 87.7 fL (78.0-102.0); Nucleated Red Blood Cells Absolute Auto 0.00 K/mm3 (0.00-0.00); Nucleated Red Blood Cells Perc 0.0 % (0-0.0); Platelet Count Result 279 K/mm3 (150-420); Red Blood Count 4.65 M/mm3 (4.20-5.40); White Blood Count 11.9 K/mm3 (4.8-10.8)
[2024-12-25] MEDS: LACTATED RINGERS 1,000 ML 999 ML IV CONT (16:49)
[2024-12-25] MEDS: KETOROLAC 15 MG/ML VIAL (*BKC) IV PUSH (16:50)
[2024-12-25 16:53] LABS: Alanine Aminotransferase 21 U/L (6-35); Albumin Level 3.2 g/dL (3.5-5.1); Alkaline Phosphatase 125 U/L (38-126); Anion Gap 11 mmol/L (4-12); Aspartate Amino Transferase 24 U/L (14-36); Bilirubin,Total 0.4 mg/dL (0.2-1.3); Blood Urea Nitrogen 6 mg/dL (7-17); Calcium 7.9 mg/dL (8.4-10.2); Carbon Dioxide 15 mmol/L (22-30); Chloride 103 mmol/L (98-107); Estimated CRCL calculation 106 ml/min; Estimated Glomerular Filt Rate > 60; Glucose 320 mg/dL (65-110); Osmolality Calculated 277 mOsm/kg (285-295); Potassium 4.1 mmol/L (3.4-5.0); Sodium 129 mmol/L (137-145); Total Protein 6.9 g/dL (6.3-8.2)
[2024-12-25 17:00] VITALS: BP 117/76; PULSE 90; RESP 17; O2SAT 100
[2024-12-25 18:00] VITALS: BP 131/81; PULSE 92; RESP 17; O2SAT 99
[2024-12-25 18:31] VITALS: BP 131/81; PULSE 92; RESP 17; O2SAT 99
--- NOTE | 2024-12-30 13:34 | PC.NURSE ---
PRELIMINARY URINE CULTURE REPORT; GRAM NEGATIVE BACILLI ISOLATED, PATIENT WAS ON BACTRIM PRIOR TO ER VISIT AND WAS TOLD TO CONTINUE TAKING, WILL WAIT FOR FINAL CULTURE AND SENSITIVITY PER ERP DR. GERARDO.
--- NOTE | 2024-12-31 15:42 | PC.NURSE ---
Patient is currently admitted to another facility due to sodium levels. RN spoke with . Will fax results over to [facility].
--- NOTE | 2024-12-31 15:46 | PC.NURSE ---
RN spoke with Calli, Urine culture report faxed to [phone]
== END 2024-12-25 18:31 | disposition home or self-care (01) ==
PROVIDERS: Emergency Provider Internal Medicine Critical Care Medicine; PCP Family Medicine
DX: E11.65 Type 2 diabetes mellitus with hyperglycemia (principal); N83.202 Unspecified ovarian cyst, left side; N83.201 Unspecified ovarian cyst, right side; F17.210 Nicotine dependence, cigarettes, uncomplicated
CPT/HCPCS: 36415; 74176; 80053; 81001; 81025; 83605; 85025; 96361; 96374; 99284; J1885; J7120

== ENCOUNTER 2025-01-17 20:55 | Emergency (ER) | payer OTHER, SELFPAY ==
--- NOTE | ~2025-01-17 | XR_ITS ---
XR lumbar spine 2-3V 01/17/2025 21:47 Indication: Low back pain. Procedure: 3 views lumbar spine Comparison: No prior studies for comparison. Findings: Normal lumbar lordosis. Vertebral body height is maintained. Mild disc narrowing at L4-5. No evidence for spondylolysis or spondylolisthesis. Wedge- shaped appearance to T12, likely developmental. No acute fracture, subluxation or dislocation. Sacral foramen are symmetric. Impression: 1: No acute abnormality of the lumbar spine. Reviewed, dictated and finalized at location O. Impression: 1: No acute abnormality of the lumbar spine.
--- OUTSIDE RECORDS SUMMARY | 2025-01-17 21:07 | XMS_ITS | Clinical Summary ---
Author Organization [facility] Address [address] [place] [address] Care Team Providers Care Field Sales Executive Name Role Phone Angelo Dickson MD Primary Care Provider [phone] Allergies No known active allergies Medications atorvastatin (LIPITOR) 40 mg tablet Take 1 tablet (40 mg total) by mouth daily Active gabapentin (NEURONTIN) 800 mg tablet Take 1 tablet (800 mg total) by mouth 3 (three) times a day 11/11/19 25 Active LANTUS 100 unit/mL (3 mL) pen for injection Inject 40 Units under the skin daily 09/07/19 25 Active lisinopriL (PRINIVIL,ZESTRIL) 5 mg tablet Take 1 tablet (5 mg total) by mouth daily 07/13/19 22 Active metFORMIN (GLUCOPHAGE) 1,000 mg tablet Take 1 tablet (1,000 mg total) by mouth 2 (two) times a day with meals Active magnesium citrate solutionIndications :constipation Take 296 mL by mouth daily as needed (As needed for constipation) for up to 14 days 988 mL 1 01/02/20 25 Active lactulose (CEPHULAC) 20 gram packet Take 1 packet (20 g total) by mouth 3 (three) times a day for 5 days 15 packet 01/02/20 25 Active Additional Information Patient not taking.Reported on 01/13/2025 icosapent ethyL (VASCEPA) 1 gram capsule Take 2 capsules (2 g total) by mouth 2 (two) times a day 360 capsule 3 01/14/20 25 2025 Active FreeStyle Yoon 3 Plus Sensor deviceIndications:T ype 2 diabetes mellitus with hyperglycemia, with long-term current use of insulin (HCC) 1 Device continuously E11.65 6 each 4 01/14/20 25 2024 Active glucose 4 gram chewable tabletIndications:T ype 2 diabetes mellitus with hyperglycemia, with long-term current use of insulin ([facility]) Take 4 tablets (16 g total) by mouth as needed for low blood sugar 50 tablet 12 01/14/20 25 2025 Active blood-glucose meter kitIndications:Type 2 diabetes mellitus with hyperglycemia, with long-term current use of insulin ([facility]) Use four times daily as directed for monitoring of blood sugar for diabetes 1 kit 01/14/20 Active blood glucose diagnostic (glucose blood) stripIndications:Ty pe 2 diabetes mellitus with hyperglycemia, with long-term current use of insulin ([facility]) Check blood sugar 4x times a day or as directed 100 each 01/14/20 Active lancets miscIndications:Typ e 2 diabetes mellitus with hyperglycemia, with long-term current use of insulin ([facility]) 1 each by other route 4 (four) times a day 100 each 01/14/20 Active levothyroxine (SYNTHROID) 175 mcg tablet Take 1 tablet (175 mcg total) by mouth assistant coach before breakfast 30 tablet 01/14/202024 Active fenofibrate nanocrystallized (TRICOR) 48 mg tablet Take 1 tablet (48 mg total) by mouth daily 30 tablet 01/14/202024 Active insulin lispro (HumaLOG, ADMELOG) 100 unit/mL pen for injection Take 10 units three times daily with meals plus sliding scale 1 unit for every 50>150. Maximum total daily dose 50 units 45 mL 3 01/15/20 Active fluconazole (DIFLUCAN) 100 mg tablet Take 1 tablet (100 mg total) by mouth daily 12/25/19 25 2024 Discontin ued(Stop Taking at Discharge ) levothyroxine (SYNTHROID) 150 mcg tablet Take 1 tablet (150 mcg total) by mouth assistant coach before breakfast 11/11/19 25 2024 Discontin ued(Stop Taking at Discharge ) levothyroxine (SYNTHROID) 175 mcg tablet Take 1 tablet (175 mcg total) by mouth assistant coach before breakfast 30 tablet 01/03/20 25 2024 Discontin ued(Reord er) cefadroxil (DURICEF) 500 mg capsule Take 1 capsule (500 mg total) by mouth 2 (two) times a day for 7 days 14 capsule 01/02/20 25 2024 fenofibrate nanocrystallized (TRICOR) 48 mg tablet Take 1 tablet (48 mg total) by mouth daily 30 tablet 01/03/20 25 2024 Discontin ued(Reord er) fluconazole (DIFLUCAN) 200 mg tabletIndications:S kin/Soft Tissue Infection Take 1 tablet (200 mg total) by mouth daily for 8 days 8 tablet 01/03/20 25 2024 Active Problems Problem Noted Date Diagnosed Date Type 2 diabetes mellitus wit h hyperglycemia, with long-term current use of insulin 01/13/2025 Other specified hypothyroidism 01/13/2025 Rash 12/31/2024 Hypertriglyceridemia 12/31/2024 Hyponatremia 12/29/2024 Encounters Date Type Department Care Team Description 01/14/2025 Results Follow-Up [facility] at [address] [address] Irina Guevara DO Lipid panel, Cholesterol, LDL, direct 01/13/2025 2:00 PM CDT Lab [facility] Outpatient Lab - Outpatient Center at [address] [address] Type 2 diabetes mellitus with hyperglycemia, with long-term current use of insulin (HCC) 01/13/2025 1:30 PM CDT Office Visit [facility] at [address] [address] Irina Guevara DO Type 2 diabetes mellitus with hyperglycemia, with long-term current use of insulin (HCC) (Primary Dx); Hypertriglyceridemia; Primary hypothyroidism 01/06/2025 [facility] Post Discharge Follow up phone call [facility] [address] [place] [id number] Terese Sepulveda 01/04/2025 [facility] Post Discharge Follow up phone call [address] [address] Terese Sepulveda 01/03/2025 Telephone [facility] [address] [facility] [address] [place] [address] Gisselprincess Mindy 12/29/2024 8:44 AM CDT - 01/01/2025 3:40 PM CDT Hospital Encounter [facility] IMU [address] [place] [address] Malick Carrero MD Abbas, Shazia, MD Nations, Matthew Austin, Hyponatremia (Primary Dx); Ovarian mass; Hypothyroidism, unspecified type; Cystitis; Hyperglycemia; Hypertriglyceridemia; Rash Discharge Disposition: Discharge to home or self care from Last 3 Months Medical History Medical History Date Comments Type 2 diabetes mellitus Hypothyroidism Hypertriglyceridemia Social History Tobacco Use Types Packs/Day Years Used Date Smoking Tobacco: Every Day Cigarettes Tobacco Cessation:Ready to Q uit: Not Asked [facility] Utilities Answer Date Recorded In the past 12 months has [employer], gas, oil, or water [employer] threatened to shut off services in your home? No 12/30/2024 Social Connection and Isolation Panel Answer Date Recorded In a typical week, how many times do you talk on the phone with family, friends, or neighbors? More than three times a week 12/30/2024 How often do you get togethe r with friends or relatives? More than three times a week 12/30/2024 How often do you attend chur ch or baptism services? Never 12/30/2024 Do you belong to any clubs o r organizations such as rastafari groups, unions, fraternal or athletic groups, or school groups? No 12/30/2024 How often do you attend meet ings of the clubs or organizations you belong to? Never 12/30/2024 Are you , , di vorced, , never , or living with a partner? 12/30/2024 Overall Financial Resource Strain (CARDIA) Answe r Date Recorded How hard is it for you to pa y for the very basics like food, housing, medical care, and heating? Not hard at all 12/30/2024 Hunger Vital Sign Answer Date Recorded Within the past 12 months, y ou worried that your food would run out before you got the money to buy more. Never true 12/31/19 25 Within the past 12 months, t he food you bought just didn't last and you didn't have money to get more. Never true 12/30/2024 PRAPARE - Transportation Answer Date Re corded In the past 12 months, has l ack of transportation kept you from medical appointments or from getting medications? No 11/2024 In the past 12 months, has l ack of transportation kept you from meetings, work, or from getting things needed for daily living? No 12/30/2024 Housing Stability Vital Sign Answer Wilmer e Recorded In the last 12 months, was t here a time when you were not able to pay the mortgage or rent on time? No 12/30/2024 In the past 12 months, how m any times have you moved where you were living? 0 12/30/2024 At any time in the past 12 m [facility], were you homeless or living in a long-term (including now)? No 12/30/2024 Personal Safety Answer Date Recorded Have you ever been in or are you currently in a harmful physical or emotional relationship or is someone making you feel afraid or unsafe? Denies 12/29/2024 Comments No Sex and Gender Information Value Date Recorded Sex Assigned at Not on file Legal Sex Female 11:06 AM [employer] Gender Identity Not on file Sexual Orientation Not on file Obstetrics History Last Filed Vital Signs Vital Sign Reading Time Taken Comments Blood Pressure 136/74 01/13/2025 12:55 PM CDT Pulse 104 01/13/2025 12:55 PM CDT Temperature 36.3 C (97.3 F) 01/01/2025 2:56 PM CDT Respiratory Rate 18 01/01/2025 2:56 PM CDT Oxygen Saturation 96% 01/01/2025 2:56 PM CDT Inhaled Oxygen Concentration - - Weight 74.2 kg (163 lb 8 oz) 01/13/2025 12:55 PM CDT Height 167.6 cm (5' 6) 01/13/2025 12:55 PM CDT Body Mass Index 26.39 01/13/2025 12:55 PM CDT Plan of Treatment Health Maintenance Due Date Last Done Comments Albumin Creatinine Ratio, Urine 1985 Cervical Cancer Screening 1985 Depression Screening 1985 Hepatitis C Screening 1985 Dilated Eye Exam 1985 Foot Exam 1985 DTaP/Tdap/Td Vaccine (6 - Tdap) 1996 02/01/1991, 02/24/1989, 06/28/1986, Additional history exists Varicella Vaccines (1 of 2 - 13+ 2-dose series) 1998 Regular Well Visit/Exam 18-64 2003 Pneumococcal vaccine <65 (1 of 2 - PCV) 2004 HPV Vaccines (1 - 3-dose SCD M series) 2012 Covid-19 Vaccine (3 - 2023-2 5 season) 2024 04/30/2021, 08/06/2020 Influenza Vaccine (#1) 2025 Hemoglobin A1C 07/16/2025 01/13/2025 eGFR 01/01/2026 01/01/2025, 08/0 12/2024, 12/30/2024, Additional history exists Lipid Panel 01/13/2026 01/13/2025, 08/0 12/2024, 12/30/2024 Hepatitis B Screening Completed 09/07/1996, 997 Procedures Procedure Name Priority Date/Time Associated Diagnosis Comments CHOLESTEROL, LDL, DIRECT Routine 01/13/2025 1:47 PM CDT Type 2 diabetes mellitus with hyperglycemia, with long-term current use of insulin (HCC) LIPID PANEL Routine 01/13/2025 1:47 PM CDT Type 2 diabetes mellitus with hyperglycemia, with long-term current use of insulin (HCC) POCT HEMOGLOBIN A1C Routine 01/13/2025 1 :24 PM CDT Type 2 diabetes mellitus with hyperglycemia, with long-term current use of insulin (HCC) OSMOLALITY, BLOOD Timed 01/01/2025 1:1 6 PM CDT POCT GLUCOSE DEVICE Routine 01/01/2025 1 2:02 PM CDT XR ABDOMEN AP 1 VIEW IP Routine 01/01/2025 11:43 AM CDT POCT GLUCOSE DEVICE Routine 01/01/2025 8 :08 AM CDT CBC WITHOUT DIFFERENTIAL Routine 01/01/2025 7:12 AM CDT POCT GLUCOSE DEVICE Routine 01/01/2025 3 :15 AM CDT EGFR Routine 01/01/2025 2:51 AM CDT PRO B-TYPE NATRIURETIC PEPTIDE Routine 01/01/2025 2:51 AM CDT BASIC METABOLIC PANEL Routine 01/01/2025 2:51 AM CDT POCT GLUCOSE DEVICE Routine 12/31/2024 8 :34 PM CDT POCT GLUCOSE DEVICE Routine 12/31/2024 4 :43 PM CDT MRI PELVIS W WO CONTRAST IP Routine 12/31/2024 2:25 PM CDT OXYCODONE CONFIRMATION, URINE Routine 12/31/2024 1:13 PM CDT OPIATES CONFIRMATION MS, URINE Routine 12/31/2024 1:13 PM CDT DRUGS OF ABUSE SCREEN, URINE WITH REFLEX CONFIRMATION Routine 12/31/2024 1:13 PM CDT SODIUM LEVEL Timed 12/31/2024 12:27 PM CDT POCT GLUCOSE DEVICE Routine 12/31/2024 1 1:46 AM CDT OSMOLALITY, BLOOD Routine 12/31/2024 8:0 9 AM CDT SODIUM LEVEL Timed 12/31/2024 8:09 AM CDT POCT GLUCOSE DEVICE Routine 12/31/2024 8 :08 AM CDT CHOLESTEROL, LDL, DIRECT Routine 12/31/2024 5:30 AM CDT AMYLASE Routine 12/31/2024 5:30 AM CDT LIPASE Routine 12/31/2024 5:30 AM CDT LIPID PANEL Routine 12/31/2024 5:30 AM CDT TRIGLYCERIDES Timed 12/31/2024 5:30 AM CDT EGFR Routine 12/31/2024 3:57 AM CDT PRO B-TYPE NATRIURETIC PEPTIDE Routine 12/31/2024 3:57 AM CDT CBC WITHOUT DIFFERENTIAL Routine 12/31/2024 3:57 AM CDT BASIC METABOLIC PANEL Routine 12/31/2024 3:57 AM CDT POCT GLUCOSE DEVICE Routine 12/31/2024 2 :05 AM CDT SODIUM LEVEL Timed 12/31/2024 12:35 AM CDT POCT GLUCOSE DEVICE Routine 12/30/2024 8 :35 PM CDT SODIUM LEVEL Timed 12/30/2024 7:33 PM CDT POCT GLUCOSE DEVICE Routine 12/30/2024 4 :57 PM CDT SODIUM LEVEL Timed 12/30/2024 3:57 PM CDT CHOLESTEROL, LDL, DIRECT Routine 12/30/2024 2:39 PM CDT OSMOLALITY, BLOOD Routine 12/30/2024 2:3 9 PM CDT LIPID PANEL Routine 12/30/2024 2:39 PM CDT XR CHEST PA LATERAL 2 VIEWS IP Routine 12/30/2024 2:09 PM CDT POCT GLUCOSE DEVICE Routine 12/30/2024 1 2:22 PM CDT SODIUM LEVEL Timed 12/30/2024 12:11 PM CDT EGFR Routine 12/30/2024 9:22 AM CDT RENAL FUNCTION PANEL Routine 12/30/2024 9:22 AM CDT PRO B-TYPE NATRIURETIC PEPTIDE Routine 12/30/2024 9:22 AM CDT URINALYSIS, MICROSCOPIC ONLY Routine 12/30/2024 8:43 AM CDT URINALYSIS AND REFLEX TO MICROSCOPIC Routine 12/30/2024 8:43 AM CDT SODIUM, URINE, RANDOM Routine 12/30/2024 8:43 AM CDT OSMOLALITY, URINE Routine 12/30/2024 8:4 3 AM CDT POCT GLUCOSE DEVICE Routine 12/30/2024 8 :13 AM CDT EGFR Routine 12/30/2024 4:31 AM CDT DIFFERENTIAL AUTO Routine 12/30/2024 4:3 1 AM CDT ERYTHROCYTE SEDIMENTATION RATE Routine 12/30/2024 4:31 AM CDT CA 125 Routine 12/30/2024 4:31 AM CDT CBC WITH AUTO DIFFERENTIAL Routine 12/30/2024 4:31 AM CDT COMPREHENSIVE METABOLIC PANEL Routine 12/30/2024 4:31 AM CDT POCT GLUCOSE DEVICE Routine 12/30/2024 2 :01 AM CDT SODIUM LEVEL Timed 12/30/2024 1:29 AM CDT POCT GLUCOSE DEVICE Routine 12/29/2024 1 1:57 PM CDT POCT GLUCOSE DEVICE Routine 12/29/2024 1 0:23 PM CDT POCT GLUCOSE DEVICE Routine 12/29/2024 8 :42 PM CDT EGFR STAT 12/29/2024 6:34 PM CDT BASIC METABOLIC PANEL STAT 12/29/2024 6:34 PM CDT BLOOD CULTURE STAT 12/29/2024 2:07 PM CDT US PELVIS W ENDOVAGINAL ED 12/29/2024 2:04 PM CDT BLOOD CULTURE STAT 12/29/2024 1:38 PM CDT POCT GLUCOSE DEVICE Routine 12/29/2024 1 :31 PM CDT CORTISOL Timed 12/29/2024 12:15 PM CDT OSMOLALITY, BLOOD STAT 12/29/2024 12: 15 PM CDT POCT GLUCOSE DEVICE Routine 12/29/2024 1 2:11 PM CDT MYCOLOGY (FUNGAL) CULTURE STAT 12/29/2024 11:35 AM CDT T4, FREE Routine 12/29/2024 10:12 AM CDT THYROID FUNCTION CASCADE Routine 12/29/2024 10:12 AM CDT EGFR STAT 12/29/2024 10:12 AM CDT COMPREHENSIVE METABOLIC PANEL STAT 12/29/2024 10:[address] ABDOMEN PELVIS W CONTRAST ED 12/29/2024 9:50 AM CDT SODIUM, URINE, RANDOM STAT 12/29/2024 8:54 AM CDT OSMOLALITY, URINE STAT 12/29/2024 8:5 4 AM CDT URINALYSIS, MICROSCOPIC ONLY STAT 12/29/2024 8:54 AM CDT HCG, URINE, QUALITATIVE STAT 12/29/2024 8:54 AM CDT SEPSIS LACTATE WITH REFLEX STAT 12/29/2024 8:54 AM CDT URINE CULTURE STAT 12/29/2024 8:54 AM CDT URINALYSIS AND REFLEX TO MICROSCOPIC AND CULTURE STAT 12/29/2024 8:54 AM CDT EGFR STAT 12/29/2024 8:44 AM CDT DIFFERENTIAL AUTO STAT 12/29/2024 8:4 4 AM CDT COMPREHENSIVE METABOLIC PANEL STAT 12/29/2024 8:44 AM CDT CBC WITH AUTO DIFFERENTIAL STAT 12/29/2024 8:44 AM CDT from Last 3 Months Results * Cholesterol, LDL, direct (01/13/2025 1:47 PM CDT) LDL Cholesterol, Direct 68 <=129 mg/dL Comment: Interpretive Data Ages < or = 19 years Acceptable: <110 mg/dL Borderline high: 110-129 mg/dL High: >or= 130 mg/dL Ages > or = 20 years Optimal: <100 mg/dL Near optimal: 100-129 mg/dL Borderline high: 130-159 mg/dL High: >160 mg/dL Literature References: 1. Expert Panel on Integrated Guidelines for Cardiovascular Health and Risk Reduction in Children and Adolescents. Pediatrics 2011;128:S213 2. NCEP Expert Panel. Circulation 2004;110:227 Current Interpretive Data was last revised on 2018. Testing performed by: [address] [address] Blood 01/13/2025 1:47 PM CDT 01/13/2025 6:43 PM CDT Narrative KIMI MATA - 01/13/2025 7:55 PM CDT Cholesterol, LDL, direct reflexed based on Elevated Triglyceride (>400) us Irina Guevara DO LAB BLOOD ORDERABLES Final Result [facility] [address] Department [place] [address] * (ABNORMAL) Lipid panel (01/13/2025 1:47 PM CDT) Cholesterol 364(H) 30 - 199 mg/dL Comment: Interpretive Data Ages < or = 19 years Acceptable: <170 mg/dL Borderline high: 170-199 mg/dL High: >or= 200 mg/dL Ages > or = 20 years Desirable: <200 mg/dL Borderline high: 200-239 mg/dL High: >or= 240 mg/dL Literature References: 1. Expert Panel on Integrated Guidelines for Cardiovascular Health and Risk Reduction in Children and Adolescents. Pediatrics 2011;128:S213 2. NCEP Expert Panel. Circulation 2004;110:227 Current Interpretive Data was last revised on 2018. Testing performed by: [facility], [address] [place] [address]., [address] Triglycerides 1,536(H) <=149 mg/dL KIMI MATA Comment: Interpretive Data Ages < or = 9 years Acceptable: <75 mg/dL Borderline high: 75-99 mg/dL High: >or= 100 mg/dL Ages 10 to 20 years Acceptable: <90 mg/dL Borderline high: 90-129 mg/dL High: >or= 130 mg/dL Ages > or = 20 years Desirable: <150 mg/dL Borderline high: 150-199 mg/dL High: 200-499 mg/dL Very high: >or= 499 mg/dL Literature References: 1. Expert Panel on Integrated Guidelines for Cardiovascular Health and Risk Reduction in Children and Adolescents. Pediatrics 2011;128:S213 2. NCEP Expert Panel. Circulation 2004;110:227 Current Interpretive Data was last revised on 2018. Testing performed by: [facility], [address] [place] [address]., [address] HDL 26(L) >=40 mg/dL KIMI Comment: Interpretive Data Ages < or = 19 years Acceptable: >45 mg/dL Borderline low: 40-45 mg/dL Low: <40 mg/dL Ages > or = 20 years Desirable: >or= 60 mg/dL Low: <40 mg/dL Literature References: 1. Expert Panel on Integrated Guidelines for Cardiovascular Health and Risk Reduction in Children and Adolescents. Pediatrics 2011;128:S213 2. NCEP Expert Panel. Circulation 2004;110:227 Current Interpretive Data was last revised on 2018. Testing performed by: [address] [address] LDL, calculated See Comment <=129 mg/dL KIMI Comment: Unable to calculate due to elevated Triglycerides. Interpretive Data Ages < or = 19 years Acceptable: <110 mg/dL Borderline high: 110-129 mg/dL High: >or= 130 mg/dL Ages > or = 20 years Optimal: <100 mg/dL Near optimal: 100-129 mg/dL Borderline high: 130-159 mg/dL High: >160 mg/dL Calculated using the Everardo LDL-C estimating equation. This equation was implemented on 2024. Prior to this date LDL-C was estimated using the Friedewald equation. Literature References: 1. Expert Panel on Integrated Guidelines for Cardiovascular Health and Risk Reduction in Children and Adolescents. Pediatrics 2011;128:S213 2. NCEP Expert Panel. Circulation 2004;110:227 3. Everardo Arnold al. BRIANA Cardiol. 2020 September 23;5(5):540-548. doi: 10.1001/jamacardio.2020.0013 Current Interpretive Data was last revised on 2024. Testing performed by: [address] [address] Non-HDL Cholesterol 338 mg/dL KIIM Comment: Interpretive Data Ages < or = 19 years Acceptable: <120 mg/dL Borderline high: 120-144 mg/dL High: >145 mg/dL Ages > or = 20 years When triglycerides are >200 mg/dL, Non-HDL cholesterol is a secondary target of therapy with treatment goals that are 30 mg/dL greater than the LDL cholesterol target. Literature References: 1. Expert Panel on Integrated Guidelines for Cardiovascular Health and Risk Reduction in Children and Adolescents. Pediatrics 2011;128:S213 2. NCEP Expert Panel. Circulation 2004;110:227 Current Interpretive Data was last revised on 2018. Testing performed by: [facility], [address] [place] [address]., [address] Chol/HDL ratio 14 KIMI Comment:Testing performed by : [facility], [address] [place] [address]., [address] Blood 01/13/2025 1:47 PM CDT 01/13/2025 6:15 PM CDT Irina Guevara DO LAB BLOOD ORDERABLES Final Result [facility] [id number] [place] [address] Department of Laboratories [place], [place] [id number] * (ABNORMAL) POCT hemoglobin A1c (01/13/2025 1:24 PM CDT) Pathologist [facility] Hemoglobin A1C, POC 13.1(A) 4.0 - 5.6 % Blood 01/13/2025 1:24 PM CDT Irina Guevara DO POINT OF CARE TEST ORDERABL ES Final Result * Osmolality, blood (01/01/2025 1:16 PM CDT) Osmo 293 275 - 300 mOsm/kg Comment: After removal of gross lipemia. Testing performed by: [facility], [address] [place]., [address] Blood 01/01/2025 1:16 PM CDT 01/01/2025 7:47 PM CDT us Edgar Salvador MD LAB BLOOD ORDERABLES Edited R esult - Final KIMI BELL ([place]) 1 [facility] [place] [address] * (ABNORMAL) POCT glucose (01/01/2025 12:02 PM CDT) Glucose, POC 295(H) 70 - 199 mg/dL Blood 01/01/2025 12:0 2 PM CDT 01/01/2025 12:02 PM CDT Lukas Trent Gant DO LAB POCT ORDERABLES - DEVICE Final Result Performing Organization Address [facility] Co de Phone Number KIMI BELL ([place]) 1 [facility] [place] [address] * XR Abdomen 1 View AP (01/01/2025 11:43 AM CDT) Anatomical Region Laterality Modality Body, Abdomen N/A Computed Radiogr aphy 01/01/2025 7:17 PM CDT Narrative 01/01/2025 7:17 PM CDT EXAM DESCRIPTION: XR ABDOMEN AP 1 VIEW REASON FOR STUDY: Assessment of constipation Assessment of constipation. TECHNIQUE: Single radiographic view of the abdomen. COMPARISON: None FINDINGS: BOWEL: Nonobstructive gas pattern. Large amount of fecal matter in the colon. SOFT TISSUES: No abnormal calcifications. LINES/TUBES: None. BONES: No acute osseous abnormality. Surgical clips right upper quadrant suggest prior cholecystectomy. IMPRESSION: No acute finding. Large amount of fecal matter in the colon. THIS IS AN ELECTRONICALLY VERIFIED FINAL REPORT 01/01/2025 7:17 PM - Electronically signed by Buddy Li M.D. KT: LOUISE Report ID: [id number] Reading Location: [id number] Procedure Note Buddy Li MD - 01/01/2025 EXAM DESCRIPTION: XR ABDOMEN AP 1 VIEW REASON FOR STUDY: Assessment of constipation Assessment of constipation. TECHNIQUE: Single radiographic view of the abdomen. COMPARISON: None FINDINGS: BOWEL: Nonobstructive gas pattern. Large amount of fecal matter in the colon. SOFT TISSUES: No abnormal calcifications. LINES/TUBES: None. BONES: No acute osseous abnormality. Surgical clips right upper quadrant suggest prior cholecystectomy. IMPRESSION: No acute finding. Large amount of fecal matter in the colon. THIS IS AN ELECTRONICALLY VERIFIED FINAL REPORT 01/01/2025 7:17 PM - Electronically signed by Buddy Li M.D. KT: KT Report ID: [id number] Reading Location: [place] [address] Lukas Gant DO IMG XR PROCEDURES Rosie l Result * (ABNORMAL) POCT glucose (01/01/2025 8:08 AM CDT) Pathologist [facility] Glucose, POC 293(H) 70 - 199 mg/dL Blood 01/01/2025 8:08 AM CDT 01/01/2025 8:08 AM CDT us Lukas Gant DO LAB POCT ORDERABLES - DEVICE Final Result [facility]I BELL ([place]) 1 [facility] [place] [address] * (ABNORMAL) CBC without differential (01/01/2025 7:12 AM CDT) WBC 7.69 3.80 - 9.90 K/cumm Hgb 11.5(L) 11.9 - 15.5 g/dL [facility] BELL ([place]) Comment:Lipemic. performed d iluent replacement and results were corrected Hct 33.3(L) 35.6 - 45.5 % [facility] ([place]) Comment:performed diluent re placement and corrected results Lipemic. Plt 241 150 - 400 K/cumm [facility] ([place]) MPV 10.7 9.1 - 12.3 fL [facility] ([place]) RBC 3.85(L) 3.90 - 5.20 M/cumm [facility] ([place]) Comment:performed diluent re placement and results corrected Lipemic. MCV 86.5 81.3 - 96.4 fL [facility] ([place]) Comment:performed diluent re placement and corrected results MCH 29.9 27.1 - 33.3 pg [facility] ([place]) Comment:performed diluent re placement and corrected results Lipemic. MCHC 34.5 32.3 - 35.7 g/dL [facility] ([place]) Comment:Lipemic. performed d iluent replacement and corrected results RDW CV 13.2 11.1 - 14.9 % [facility] ([place]) RDW SD 41.4 35.7 - 48.1 fL [facility] ([place]) NRBC abs 0.00 0.00 - 0.01 K/cumm [facility] ([place]) Blood 01/01/2025 7:12 AM CDT 01/01/2025 7:27 AM CDT Lukas Gant DO LAB BLOOD ORDERABLES F inal Result [facility]I BELL ([place]) 1 [facility] [place] [address] * (ABNORMAL) POCT glucose (01/01/2025 3:15 AM CDT) [facility] Glucose, POC 297(H) 70 - 199 mg/dL Blood 01/01/2025 3:15 AM CDT 01/01/2025 3:15 AM CDT Lukas Gant DO LAB POCT ORDERABLES - DEVICE Final Result [facility] BELL (GALWAY) 1 [facility] [employer] [place] [address] * eGFR (01/01/2025 2:51 AM CDT) [facility] eGFR >90 >=60 mL/min/1. 73 m2 Comment: Interpretive Data Reference Interval Normal >/= 90 mL/min/1.73m2 Mildly decreased* 60 - 89 mL/min/1.73m2 Mildly to moderately decreased 45 - 59 mL/min/1.73m2 Moderately to severely decreased 30 - 44 mL/min/1.73m2 Severely decreased 15 - 29 mL/min/1.73m2 Kidney Failure < 15 mL/min/1.73m2 *Relative to young adult level Estimated glomerular filtration rate is determined by the 2020 CKD-EPI equation recommended by the National Kidney Foundation (A Unifying Approach to GFR Estimation: Recommendations of the NKF-ASK Task Force on Reassessing the Inclusion of Race in Diagnosing Kidney Disease, JASN 2020). The CKD-EPI equation should not be used for patients with unstable renal function and has not been validated in children and those over 70. Current interpretive data was last reviewed 2021. Blood 01/01/2025 2:51 AM CDT 01/01/2025 3:40 AM CDT us Sharon Mayo MD LAB BLOOD ORDERABLES Final Resul t KIMI BELL (GALWAY) 1 [facility] [place] [address] * Pro B-type natriuretic peptide (01/01/2025 2:51 AM CDT) NT-proBNP <36 <=300 pg/mL KIMI BELL (GALWAY) Comment: Interpretive Comments: A. Dyspnea in Acute Care Setting All Ages: < 300 pg/ml, acute heart failure unlikely. < 50 yrs: 300 - 450 pg/ml, further investigation warranted. > 450 pg/ml, acute heart failure likely. 50 - 74 yrs: 300 - 900 pg/ml, further investigation warranted. > 900 pg/ml, acute heart failure likely . > or = 75 yrs: 450 - 1800 pg/ml, further investigation warranted. > 1800 pg/ml, acute heart failure likely. B. Non-acute Setting < 75 yrs < 125 pg/ml, rules out heart failure. > or = 125 pg/ml, further investigation warranted. > or = 75 yrs < 450 pg/ml, rules out heart failure. > or = 450 pg/ml, further investigation warranted. - Knowledge of each individual patient's NT-proBNP range may be more useful than using similar cut-points for every patient. Please note that marked elevations in NT-proBNP levels may be observed in state other than Left Ventricular Congestive Failure, including: acute coronary syndromes, right heart strain/failure (including pulmonary embolism and cor pulmonale), critical illness, renal failure, as well as advanced age. - References: 1. Flor ARRIAGA et.al. Eur Heart J. 2006:27:330-337. 2. Kenny RW, Judi FOWLER. J. AM Idalia Cardiol: Cardiovasc Imag. 2009;2: 216- 225. Interpretive Data Last Revised Date: 2018. Blood 01/01/2025 2:51 AM CDT 01/01/2025 3:40 AM CDT Edgar Salvador MD LAB BLOOD ORDERABLES Final Re sult [facility] ([place]) 1 [facility] [place] [address] * (ABNORMAL) Basic metabolic panel (01/01/2025 2:51 AM CDT) Sodium 125(L) 135 - 145 mmol/L [facility] ([place]) Potassium, pl 4.2 3.3 - 4.9 mmol/L [facility] ([place]) Chloride 90(L) 97 - 110 mmol/L [facility] ([place]) CO2 23 22 - 32 mmol/L [facility] ([place]) Anion gap 12 2 - 15 mmol/L [facility] ([place]) BUN 5(L) 6 - 25 mg/dL [facility] ([place]) Creatinine 0.27(L) 0.60 - 1.10 mg/dL [facility] ([place]) Glucose 250(H) 70 - 199 mg/dL [facility] ([place]) Comment: Interpretive Data Fasting glucose >/= 126 mg/dl is diagnostic for diabetes. Fasting is defined as no caloric intake for at least 8 hours. Fasting glucose between 100 mg/dl to 125 mg/dl is diagnostic of prediabetes. In a patient with classic symptoms of hyperglycemia or hyperglycemic crisis, a random glucose >/= 200 mg/dl is diagnostic for diabetes. In the absence of unequivocal hyperglycemia, results should be confirmed by repeat testing. The classification and Diagnosis of Diabetes Diabetes Care 2021; 46: S19-S40. Current interpretive data was last revised 2022. Calcium 8.7 8.5 - 10.3 mg/dL KIMI BELL (GALWAY) Blood 01/01/2025 2:51 AM CDT 01/01/2025 3:40 AM CDT us Sharon Mayo MD LAB BLOOD ORDERABLES Final Resul t Performing Organization Address City/[facility]/ZIP Co de Phone Number KIMI BELL (GALWAY) 1 [facility] [employer] [place] [address] * (ABNORMAL) POCT glucose (12/31/2024 8:34 PM CDT) Glucose, POC 246(H) 70 - 199 mg/dL Blood 12/31/2024 8:34 PM CDT 12/31/2024 8:34 PM CDT Lukas Gant DO LAB POCT ORDERABLES - DEVICE Final Result Performing Organization Address [facility] Co de Phone Number KIMI BELL (GALWAY) 1 [facility] [place] [address] * (ABNORMAL) POCT glucose (12/31/2024 4:43 PM CDT) Glucose, POC 220(H) 70 - 199 mg/dL Blood 12/31/2024 4:43 PM CDT 12/31/2024 4:43 PM CDT Lukas Gant DO LAB POCT ORDERABLES - DEVICE Final Result Performing Organization Address City/[facility] Co de Phone Number KIMI BELL (GALWAY) 1 [facility] [employer] [place] [address] * MRI Pelvis W WO Contrast (12/31/2024 2:25 PM CDT) Anatomical Region Laterality Modality Pelvis N/A Magnetic Resonan ce 12/31/2024 2:56 PM CDT Narrative 12/31/2024 3:20 PM CDT EXAM DESCRIPTION: MRI PELVIS W WO CONTRAST REASON FOR STUDY: Soft tissue infection suspected, pelvis, xray done, See CT and US reports. Adnexal mass but she presented with infectious symptoms, wanting to also rule out abscess or PID Lower abdominal pain, nausea and vomiting. Abnormal ultrasound TECHNIQUE: Multiplanar, multisequence MRI of the pelvis was performed before and after intravenous administration. CONTRAST TYPE/DOSE: 16mL of GADOTERATE MEGLUMINE 0.5 MMOL/ML INTRAVENOUS SOLUTION (SO) injected via intravenous COMPARISON: 12/29/2024 FINDINGS: GASTROINTESTINAL: No obstruction or significant wall thickening of the visualized bowel. BLADDER/URINARY: No significant wall thickening. REPRODUCTIVE: Similar-appearing heterogeneous left adnexal cystic and solid mass measuring approximately 6.8 x 4.1 x 7.4 cm (3; 26 and 4; 22). Soft tissue is predominantly T2 hypointense. However, there is central T2 intermediate enhancing soft tissue (such as 3; 25). Enhancement is isointense to hypointense relative to the adjacent myometrium on arterial and venous phase imaging. Overall constellation of findings consistent with a O-RADS 4 lesion. Anteflexed uterus measures approximately 6.0 x 8.4 x 4.8 cm. No significant endometrial thickening. No discrete fibroid. section scarring of the lower uterine segment. Small nabothian cysts. Simple appearing unilocular right ovarian cyst measures up to 2.7 cm. LYMPH NODES: No pathologically enlarged lymphadenopathy. VASCULATURE: Grossly patent. PERITONEUM/RETROPERITONEUM: Small volume free fluid in the pelvis. BONES/SOFT TISSUES: No aggressive-appearing osseous lesions. OTHER: No other significant finding. IMPRESSION: 1. Similar-appearing heterogeneous left adnexal cystic and solid mass measuring up to 7.4 cm. Overall constellation of findings consistent with a O-RADS 4 lesion. Recommend gynecologic consultation. 2. Small volume free fluid in the pelvis. THIS IS AN ELECTRONICALLY VERIFIED FINAL REPORT 12/31/2024 3:20 PM - Electronically signed by Long Renteria M.D. NS: NS Report ID: [id number] Reading Location: [id number] Procedure Note Long Renteria MD - 12/31/2024 EXAM DESCRIPTION: MRI PELVIS W WO CONTRAST REASON FOR STUDY: Soft tissue infection suspected, pelvis, xray done,See CT and US reports. Adnexal mass but she presented with infectious symptoms, wanting to also rule out abscess or PID Lower abdominal pain, nausea and vomiting. Abnormal ultrasound TECHNIQUE: Multiplanar, multisequence MRI of the pelvis was performedbefore and after intravenous administration. CONTRAST TYPE/DOSE: 16mL of GADOTERATE MEGLUMINE 0.5 MMOL/ML INTRAVENOUS SOLUTION (SO) injected via intravenous COMPARISON: 12/29/2024 FINDINGS: GASTROINTESTINAL: No obstruction or significant wall thickening of the visualized bowel. BLADDER/URINARY: No significant wall thickening. REPRODUCTIVE: Similar-appearing heterogeneous left adnexal cystic andsolid mass measuring approximately 6.8 x 4.1 x 7.4 cm (3; 26 and 4; 22). Soft tissue is predominantly T2 hypointense. However, there is central T2 intermediate enhancing soft tissue (such as 3; 25). Enhancement isisointense to hypointense relative to the adjacent myometrium on arterial and venous phase imaging. Overall constellation of findings consistent with a O-RADS4 lesion. Anteflexed uterus measures approximately 6.0 x 8.4 x 4.8 cm. Nosignificant endometrial thickening. No discrete fibroid. section scarringof the lower uterine segment. Small nabothian cysts. Simple appearing unilocular right ovarian cyst measures up to 2.7 cm. LYMPH NODES: No pathologically enlarged lymphadenopathy. VASCULATURE: Grossly patent. PERITONEUM/RETROPERITONEUM: Small volume free fluid in the pelvis. BONES/SOFT TISSUES: No aggressive-appearing osseous lesions. OTHER: No other significant finding. IMPRESSION: 1. Similar-appearing heterogeneous left adnexal cystic and solid mass measuring up to 7.4 cm. Overall constellation of findings consistent witha O-RADS 4 lesion. Recommend gynecologic consultation. 2. Small volume free fluid in the pelvis. THIS IS AN ELECTRONICALLY VERIFIED FINAL REPORT 12/31/2024 3:20 PM - Electronically signed by Long Renteria M.D. NS: NS Report ID: [id number] Reading Location: [place] [address] Lukas Gant DO IMG MRI PROCEDURES Fin al Result * (ABNORMAL) Oxycodone Confirmation, Urine (12/31/2024 1:13 PM CDT) Oxycodone Conf, Ur Confirmed Positive(A) CutOff 50 ng/mL Comment:Testing performed by : [facility], [address] [place] [address] Oxymorphone Conf, Ur Confirmed Positive(A) CutOff 50 ng/mL KIMI BELL ([place]OMI) Comment: Interpretive Data This test detects the presence or absence of drug compounds using LC Tandem mass spectrometry and is not intended to assess compliance with prescribed medications. While this test is highly specific, false positive and false negative results may occur in very rare circumstances. Contact the laboratory for consultation, if needed. Performance characteristics were determined by the [facility] in a manner consistent with CLIA requirement and has not been cleared or approved by the U.S. Food and Drug Administration. Current interpretive data was last revised 2020. Testing performed by: [facility], [address] [place]., [address] Urine 12/31/2024 1:13 PM CDT 01/01/2025 7:47 PM CDT us Lukas Gant DO LAB URINE ORDERABLES F inal Result KIMI BELL ([place]) 1 [facility] [place] [address] * (ABNORMAL) Drugs of Abuse Screen, Urine with Reflex Confirmation (12/31/2024 1:13 PM CDT) Amphetamine, ur Not Detected CutOff 500ng/mL [facility] ([place]) Comment: Interpretive Data - Amphetamines: Samples containing greater than 500 ng/mL d-methamphetamine or other cross-reacting amphetamine compounds are reported as positive. Amphetamine immunoassays are subject to significant false positive rates due to cross-reactivity of non-amphetamine drugs. Confirmatory testing required for definitive results. Current Interpretive Data was last reviewed 2022. Barbiturates, ur Not Detected CutOff 200ng/mL [facility] ([place]) Comment: Interpretive Data - Barbiturates: Samples containing greater than 200 ng/mL secobarbital or other cross-reacting barbiturate compounds are reported as positive. False positive and false negative results are possible. Confirmatory testing required for definitive results. Current Interpretive Data was last reviewed 2022. Benzodiazepines, ur Not Detected CutOff 100ng/mL [facility] ([place]) Comment: Interpretive Data - Benzodiazepines: Samples containing greater than 100 ng/mL nordiazepam or other cross-reacting compounds are reported as positive. False positive and false negative results are possible. Confirmatory testing required for definitive results. Current Interpretive Data was last reviewed 2022. Cannabinoids, ur Not Detected CutOff 50 ng/mL [facility] ([place]) Comment: Interpretive Data - Cannabinoids: Samples containing greater than 50 ng/mL delta-9 THC -COOH or other cross- reacting compounds are reported as positive. False positive and false negative results are possible. Confirmatory testing required for definitive results. Current Interpretive Data was last reviewed 2022. Cocaine, ur Not Detected CutOff 150ng/mL [facility] ([place]) Comment: Interpretive Data - Cocaine: Samples containing greater than 150 ng/mL benzoylecgonine or other cross- reacting compounds are reported as positive. False positive and false negative results are possible. Confirmatory testing required for definitive results. Current Interpretive Data was last reviewed 2022. Fentanyl, Ur Not Detected CutOff 5 ng/mL [facility] ([place]) Comment: Interpretive Data - Fentanyl: Samples containing greater than 5 ng/mL norfentanyl, fentanyl, or other cross-reacting fentanyl compounds are reported as positive. False positive and false negative results are possible. Confirmatory testing required for definitive results. Current Interpretive Data was last reviewed 2023. Methadone, ur Not Detected CutOff 300ng/mL [facility] ([place]) Comment: Interpretive Data - Methadone: Samples containing greater than 300 ng/mL d,l-methadone or other cross-reacting compounds are reported as positive. False positive and false negative results are possible. Confirmatory testing required for definitive results. Current Interpretive Data was last reviewed 2022. Opiates, ur Screen Positive, presumptive (A) CutOff 300ng/mL [facility] ([place]) Comment: Interpretive Data - Opiates: Samples containing greater than 300 ng/mL morphine or other cross-reacting compounds are reported as positive. False positive and false negative results are possible. Confirmatory testing required for definitive results. Current Interpretive Data was last reviewed 2022. Oxycodone, ur Screen Positive, presumptive (A) CutOff 100ng/mL [facility] ([place]) Comment: Interpretive Data - Oxycodone: Samples containing greater than 100 ng/mL oxycodone or other cross-reacting compounds are reported as positive. False positive and false negative results are possible. Confirmatory testing required for definitive results. Current Interpretive Data was last reviewed 2022. Phencyclidine, ur Not Detected CutOff 25 ng/mL [facility] ([place]) Comment: Interpretive Data - Phencyclidine: Samples containing greater than 25 ng/mL phencyclidine or other cross-reacting compounds are reported as positive. False positive and false negative results are possible. Confirmatory testing required for definitive results. Current Interpretive Data was last reviewed 2022. Urine Creatinine 50 mg/dL [facility] BELL ([place]) Comment: Interpretive Data Urine Creatinine: < 10 mg/dL is extremely dilute = or > 10 but < 20 mg/dL is dilute = or > 20 mg/dL is normal Current Interpretive Data was last revised on 2017. Urine 12/31/2024 1:13 PM CDT 12/31/2024 1:17 PM CDT Narrative KIMI BELL ([place]) - 12/31/2024 8:29 PM CDT Drug of Abuse screening is performed by immunoassay for medical purposes only. This is not to be used for Pain Management purposes. If Detected, confirmation testing will be performed for Amphetamines, Cocaine, Fentanyl, Methadone, Opiates, Oxycodone or Phencyclidine. Lukas Gant DO LAB URINE ORDERABLES F inal Result KIMI BELL ([place]) 1 [facility] [place] [address] * (ABNORMAL) Opiates Confirmation, Urine (12/31/2024 1:13 PM CDT) Codeine Conf, Ur Does Not Confirm CutOff 50 ng/mL Comment:Testing performed by : [facility], [address] [place]., [address] 6- Acetylmorphine Conf, Ur Does Not Confirm CutOff 10 ng/mL [facility] ([place]) Comment:Testing performed by : [facility], [address] [place]., [address] Hydrocodone Conf, Ur Does Not Confirm CutOff 50 ng/mL [facility] ([place]) Comment:Testing performed by : [facility], [address] [place]., [address] Morphine Conf, Ur Confirmed Positive(A) CutOff 50 ng/mL [facility] ([place]) Comment:Testing performed by : [facility], [address] [place]., [address] Hydromorphone Conf, Ur Does Not Confirm CutOff 50 ng/mL [facility] ([place]) Comment: Interpretive Data This test detects the presence or absence of drug compounds using LC Tandem mass spectrometry and is not intended to assess compliance with prescribed medications. While this test is highly specific, false positive and false negative results may occur in very rare circumstances. Contact the laboratory for consultation, if needed. Performance characteristics were determined by the [facility] in a manner consistent with CLIA requirement and has not been cleared or approved by the U.S. Food and Drug Administration. Current interpretive data was last revised 2020. Testing performed by: [facility], [address] [place]., [address] Urine 12/31/2024 1:13 PM CDT 01/01/2025 7:47 PM CDT Lukas Gant DO LAB URINE ORDERABLES F inal Result Performing Organization Address [facility] Co de Phone Number KIMI BELL ([place]) 1 [facility] [employer] [place] [address] * (ABNORMAL) Sodium level (12/31/2024 12:27 PM CDT) Sodium 127(L) 135 - 145 mmol/L KIMI BELL (GALWAY) Blood 12/31/2024 12:2 7 PM CDT 12/31/2024 12:32 PM CDT Narrative KIMI BELL (GALWAY) - 12/31/2024 12:[address] salvador for delta sodium greater than 3 meq between any two consecutive blood draws, or 6 between any 3 consecutive blood draws. Edgar Salvador MD LAB BLOOD ORDERABLES Final Re sult Performing Organization Address [facility] Co de Phone Number KIMI BELL (GALWAY) 1 [facility] [place] [address] * (ABNORMAL) POCT glucose (12/31/2024 11:46 AM CDT) Glucose, POC 274(H) 70 - 199 mg/dL Blood 12/31/2024 11:4 6 AM CDT 12/31/2024 11:46 AM CDT Lukas Gant DO LAB POCT ORDERABLES - DEVICE Final Result Performing Organization Address [facility] Co de Phone Number KIMI BELL (GALWAY) 1 [facility] [place] [address] * (ABNORMAL) Sodium level (12/31/2024 8:09 AM CDT) Sodium 123(L) 135 - 145 mmol/L KIMI BELL (GALWAY) Blood 12/31/2024 8:09 AM CDT 12/31/2024 8:32 AM CDT Narrative KIMI BELL (GALWAY) - 12/31/2024 8:[address] salvador for delta sodium greater than 3 meq between any two consecutive blood draws, or 6 between any 3 consecutive blood draws. Edgar Salvador MD LAB BLOOD ORDERABLES Final Re sult Performing Organization Address City/[facility]/ZIP Co de Phone Number KIMI BELL (GALWAY) 1 [facility] [place] [address] * Osmolality, blood (12/31/2024 8:09 AM CDT) Pathologist [facility] Osmo 293 275 - 300 mOsm/kg Comment:Testing performed by : [facility], [address] [place] [address] Blood 12/31/2024 8:09 AM CDT 12/31/2024 12:17 PM CDT Edgar Salvador MD LAB BLOOD ORDERABLES Final Re sult Performing Organization Address [facility]/ZIP Co de Phone Number KIMI BELL (GALWAY) 1 [facility] [place] [address] * (ABNORMAL) POCT glucose (12/31/2024 8:08 AM CDT) [facility] Glucose, POC 255(H) 70 - 199 mg/dL Blood 12/31/2024 8:08 AM CDT 12/31/2024 8:08 AM CDT Lukas Gant DO LAB POCT ORDERABLES - DEVICE Final Result KIMI BELL (GALWAY) 1 [facility] [employer] [place] [address] * (ABNORMAL) Triglycerides (12/31/2024 5:30 AM CDT) [facility] Triglycerides >4,425(H) <=149 mg/dL KIMI BELL (GALWAY) Comment: Interpretive Data Ages < or = 9 years Acceptable: <75 mg/dL Borderline high: 75-99 mg/dL High: >or= 100 mg/dL Ages 10 to 20 years Acceptable: <90 mg/dL Borderline high: 90-129 mg/dL High: >or= 130 mg/dL Ages > or = 20 years Desirable: <150 mg/dL Borderline high: 150-199 mg/dL High: 200-499 mg/dL Very high: >or= 499 mg/dL Literature References: 1. Expert Panel on Integrated Guidelines for Cardiovascular Health and Risk Reduction in Children and Adolescents. Pediatrics 2011;128:S213 2. NCEP Expert Panel. Circulation 2004;110:227 Current Interpretive Data was last revised on 2018. Blood 12/31/2024 5:30 AM CDT 12/31/2024 5:49 AM CDT Lukas Gant DO LAB BLOOD ORDERABLES F inal Result KIMI BELL (GALWAY) 1 [facility] [place] [address] * Cholesterol, LDL, direct (12/31/2024 5:30 AM CDT) LDL Cholesterol, Direct 59 <=129 mg/dL Comment: Interpretive Data Ages < or = 19 years Acceptable: <110 mg/dL Borderline high: 110-129 mg/dL High: >or= 130 mg/dL Ages > or = 20 years Optimal: <100 mg/dL Near optimal: 100-129 mg/dL Borderline high: 130-159 mg/dL High: >160 mg/dL Literature References: 1. Expert Panel on Integrated Guidelines for Cardiovascular Health and Risk Reduction in Children and Adolescents. Pediatrics 2011;128:S213 2. NCEP Expert Panel. Circulation 2004;110:227 Current Interpretive Data was last revised on 2018. Testing performed by: [facility], [address] [place] [address]., [id number] Blood 12/31/2024 5:30 AM CDT 12/31/2024 11:29 AM CDT Narrative KIMI BELL ([place]) - 12/31/2024 12:24 PM CDT Cholesterol, LDL, direct reflexed based on Elevated Triglyceride (>400) Edgar Salvador MD LAB BLOOD ORDERABLES Final Re sult Performing Organization Address City/[facility]/ZIP Co de Phone Number KIMI BELL (GALWAY) 1 [facility] [place] [address] * Lipase (12/31/2024 5:30 AM CDT) Lipase 16 10 - 99 Units/L [facility]IMI BELL (GALWAY) Blood 12/31/2024 5:30 AM CDT 12/31/2024 8:19 AM CDT Edgar Salvador MD LAB BLOOD ORDERABLES Final Re sult Performing Organization Address [facility] Co de Phone Number KIMI BELL (GALWAY) 1 [facility] [place] [address] * Amylase (12/31/2024 5:30 AM CDT) Amylase 30 30 - 99 Units/L [facility] (GALWAY) Blood 12/31/2024 5:30 AM CDT 12/31/2024 8:19 AM CDT Edgar Salvador MD LAB BLOOD ORDERABLES Final Re sult Performing Organization Address [facility]/ZIP Co de Phone Number KIMI BELL (GALWAY) 1 [facility] [place] [address] * (ABNORMAL) Lipid panel (12/31/2024 5:30 AM CDT) Cholesterol 518(H) 30 - 199 mg/dL KIMI BELL (GALWAY) Comment: Interpretive Data Ages < or = 19 years Acceptable: <170 mg/dL Borderline high: 170-199 mg/dL High: >or= 200 mg/dL Ages > or = 20 years Desirable: <200 mg/dL Borderline high: 200-239 mg/dL High: >or= 240 mg/dL Literature References: 1. Expert Panel on Integrated Guidelines for Cardiovascular Health and Risk Reduction in Children and Adolescents. Pediatrics 2011;128:S213 2. NCEP Expert Panel. Circulation 2004;110:227 Current Interpretive Data was last revised on 2018. Triglycerides 2,233(H) <=149 mg/dL [facility]I [facility]LL ([place]) Comment: Interpretive Data Ages < or = 9 years Acceptable: <75 mg/dL Borderline high: 75-99 mg/dL High: >or= 100 mg/dL Ages 10 to 20 years Acceptable: <90 mg/dL Borderline high: 90-129 mg/dL High: >or= 130 mg/dL Ages > or = 20 years Desirable: <150 mg/dL Borderline high: 150-199 mg/dL High: 200-499 mg/dL Very high: >or= 499 mg/dL Literature References: 1. Expert Panel on Integrated Guidelines for Cardiovascular Health and Risk Reduction in Children and Adolescents. Pediatrics 2011;128:S213 2. NCEP Expert Panel. Circulation 2004;110:227 Current Interpretive Data was last revised on 2018. HDL 21(L) >=40 mg/dL [facility] ([place]) Comment: Interpretive Data Ages < or = 19 years Acceptable: >45 mg/dL Borderline low: 40-45 mg/dL Low: <40 mg/dL Ages > or = 20 years Desirable: >or= 60 mg/dL Low: <40 mg/dL Literature References: 1. Expert Panel on Integrated Guidelines for Cardiovascular Health and Risk Reduction in Children and Adolescents. Pediatrics 2011;128:S213 2. NCEP Expert Panel. Circulation 2004;110:227 Current Interpretive Data was last revised on 2018. LDL, calculated See Comment <=129 mg/dL [facility] (NAOMI) Comment: Unable to calculate due to elevated Triglycerides. Interpretive Data Ages < or = 19 years Acceptable: <110 mg/dL Borderline high: 110-129 mg/dL High: >or= 130 mg/dL Ages > or = 20 years Optimal: <100 mg/dL Near optimal: 100-129 mg/dL Borderline high: 130-159 mg/dL High: >160 mg/dL Calculated using the Mcgee LDL-C estimating equation. This equation was implemented on 2024. Prior to this date LDL-C was estimated using the Friedewald equation. Literature References: 1. Expert Panel on Integrated Guidelines for Cardiovascular Health and Risk Reduction in Children and Adolescents. Pediatrics 2011;128:S213 2. NCEP Expert Panel. Circulation 2004;110:227 3. Everardo Cuenca et al. BRIANA Cardiol. 2020 September 23;5(5):540-548. doi: 10.1001/[email or web address].2020.0013 Current Interpretive Data was last revised on 2024. Testing performed by: [place], [address] Non-HDL Cholesterol 497 mg/dL [facility] ([place]) Comment: Interpretive Data Ages < or = 19 years Acceptable: <120 mg/dL Borderline high: 120-144 mg/dL High: >145 mg/dL Ages > or = 20 years When triglycerides are >200 mg/dL, Non-HDL cholesterol is a secondary target of therapy with treatment goals that are 30 mg/dL greater than the LDL cholesterol target. Literature References: 1. Expert Panel on Integrated Guidelines for Cardiovascular Health and Risk Reduction in Children and Adolescents. Pediatrics 2011;128:S213 2. NCEP Expert Panel. Circulation 2004;110:227 Current Interpretive Data was last revised on 2018. Testing performed by: [place], [address] Chol/HDL ratio 25 GARY BE[facility] (GALWAY) Comment:Testing performed by : [place], [address] Blood 12/31/2024 5:30 AM CDT 12/31/2024 8:19 AM CDT us Edgar Salvador MD LAB BLOOD ORDERABLES Final Re sult KIMI AR[facility]ELLA ([place]) 1 [facility] [place] [address] * eGFR (12/31/2024 3:57 AM CDT) eGFR >90 >=60 mL/min/1. 73 m2 Comment: Interpretive Data Reference Interval Normal >/= 90 mL/min/1.73m2 Mildly decreased* 60 - 89 mL/min/1.73m2 Mildly to moderately decreased 45 - 59 mL/min/1.73m2 Moderately to severely decreased 30 - 44 mL/min/1.73m2 Severely decreased 15 - 29 mL/min/1.73m2 Kidney Failure < 15 mL/min/1.73m2 *Relative to young adult level Estimated glomerular filtration rate is determined by the 2020 CKD-EPI equation recommended by the National Kidney Foundation (A Unifying Approach to GFR Estimation: Recommendations of the NKF-ASK Task Force on Reassessing the Inclusion of Race in Diagnosing Kidney Disease, JASN 2020). The CKD-EPI equation should not be used for patients with unstable renal function and has not been validated in children and those over 70. Current interpretive data was last reviewed 2021. Blood 12/31/2024 3:57 AM CDT 12/31/2024 4:15 AM CDT us Sharon Mayo MD LAB BLOOD ORDERABLES Final Resul t [facility] [place] 1 [facility] Department of Laboratories [place], [place] [id number] * Pro B-type natriuretic peptide (12/31/2024 3:57 AM CDT) NT-proBNP <36 <=300 pg/mL Comment: Interpretive Comments: A. Dyspnea in Acute Care Setting All Ages: < 300 pg/ml, acute heart failure unlikely. < 50 yrs: 300 - 450 pg/ml, further investigation warranted. > 450 pg/ml, acute heart failure likely. 50 - 74 yrs: 300 - 900 pg/ml, further investigation warranted. > 900 pg/ml, acute heart failure likely . > or = 75 yrs: 450 - 1800 pg/ml, further investigation warranted. > 1800 pg/ml, acute heart failure likely. B. Non-acute Setting < 75 yrs < 125 pg/ml, rules out heart failure. > or = 125 pg/ml, further investigation warranted. > or = 75 yrs < 450 pg/ml, rules out heart failure. > or = 450 pg/ml, further investigation warranted. - Knowledge of each individual patient's NT-proBNP range may be more useful than using similar cut-points for every patient. Please note that marked elevations in NT-proBNP levels may be observed in state other than Left Ventricular Congestive Failure, including: acute coronary syndromes, right heart strain/failure (including pulmonary embolism and cor pulmonale), critical illness, renal failure, as well as advanced age. - References: 1. Flor ARRIAGA et.al. Eur Heart J. 2006:27:330-337. 2. Kenny RW, Judi FOWLER. J. AM Idalia Cardiol: Cardiovasc Imag. 2009;2: 216- 225. Interpretive Data Last Revised Date: 2018. Blood 12/31/2024 3:57 AM CDT 12/31/2024 4:15 AM CDT us Edgar Salvador MD LAB BLOOD ORDERABLES Final Re sult [facility] ([facility]) 1 [facility] [place] [address] * (ABNORMAL) CBC without differential (12/31/2024 3:57 AM CDT) WBC 7.07 3.80 - 9.90 K/cumm Hgb 11.5(L) 11.9 - 15.5 g/dL [facility] ([facility]) Hct 33.2(L) 35.6 - 45.5 % [facility] ([facility]) Plt 208 150 - 400 K/cumm [facility] ([facility]) MPV 10.8 9.1 - 12.3 fL [facility] ([place]) RBC 3.81(L) 3.90 - 5.20 M/cumm [facility] ([place]) MCV 87.1 81.3 - 96.4 fL [facility] ([facility]) MCH 30.2 27.1 - 33.3 pg [facility] ([facility]) MCHC 34.6 32.3 - 35.7 g/dL [facility] ([place]) RDW CV 13.1 11.1 - 14.9 % [facility] ([place]) RDW SD 42.0 35.7 - 48.1 fL [facility] ([facility]) NRBC abs 0.00 0.00 - 0.01 K/cumm [facility] (NAOMI) Blood 12/31/2024 3:57 AM CDT 12/31/2024 4:15 AM CDT us Sharon Mayo MD LAB BLOOD ORDERABLES Final Resul t [facility] ([facility]) 1 [facility] [place] [address] * (ABNORMAL) Basic metabolic panel (12/31/2024 3:57 AM CDT) Sodium 123(L) 135 - 145 mmol/L [facility] ([place]) Potassium, pl 4.4 3.3 - 4.9 mmol/L [facility] ([facility]) Chloride 90(L) 97 - 110 mmol/L [facility] ([facility]) CO2 22 22 - 32 mmol/L [facility] ([facility]) Anion gap 11 2 - 15 mmol/L [facility] ([place]) BUN 4(L) 6 - 25 mg/dL [facility] ([facility]OMI) Creatinine 0.39(L) 0.60 - 1.10 mg/dL [facility] (NAOMI) Glucose 251(H) 70 - 199 mg/dL [facility] (NAOMI) Comment: Interpretive Data Fasting glucose >/= 126 mg/dl is diagnostic for diabetes. Fasting is defined as no caloric intake for at least 8 hours. Fasting glucose between 100 mg/dl to 125 mg/dl is diagnostic of prediabetes. In a patient with classic symptoms of hyperglycemia or hyperglycemic crisis, a random glucose >/= 200 mg/dl is diagnostic for diabetes. In the absence of unequivocal hyperglycemia, results should be confirmed by repeat testing. The classification and Diagnosis of Diabetes Diabetes Care 2021; 46: S19-S40. Current interpretive data was last revised 2022. Calcium 8.7 8.5 - 10.3 mg/dL [facility] (NAOMI) Blood 12/31/2024 3:57 AM CDT 12/31/2024 4:15 AM CDT us Sharon Mayo MD LAB BLOOD ORDERABLES Final Resul t Performing Organization Address City/[facility]/ZIP Co de Phone Number KIMI BELL (GAL[place]) 1 [facility] [employer] [place] [address] * (ABNORMAL) POCT glucose (12/31/2024 2:05 AM CDT) Glucose, POC 280(H) 70 - 199 mg/dL Blood 12/31/2024 2:05 AM CDT 12/31/2024 2:05 AM CDT Lukas Gant DO LAB POCT ORDERABLES - DEVICE Final Result Performing Organization Address [facility] Co de Phone Number [facility]I BELL ([place]) 1 [place] [address] * (ABNORMAL) Sodium level (12/31/2024 12:35 AM CDT) Sodium 123(L) 135 - 145 mmol/L [facility] ([place]) Blood 12/31/2024 12:3 5 AM CDT 12/31/2024 12:37 AM CDT Narrative [facility]I [facility] ([place]) - 12/31/2024 12:[address] salvador for delta sodium greater than 3 meq between any two consecutive blood draws, or 6 between any 3 consecutive blood draws. us Edgar Salvador MD LAB BLOOD ORDERABLES Final Re sult Performing Organization Address City/[facility]/ZIP Co de Phone Number KIMI BELL ([place]) 1 [facility] [place] [address] * (ABNORMAL) POCT glucose (12/30/2024 8:35 PM CDT) Glucose, POC 294(H) 70 - 199 mg/dL Blood 12/30/2024 8:35 PM CDT 12/30/2024 8:35 PM CDT us Lukas Gant DO LAB POCT ORDERABLES - DEVICE Final Result Performing Organization Address [facility]/ZIP Co de Phone Number [facility]I BELL ([place]) 1 [facility] [place] [address] * (ABNORMAL) Sodium level (12/30/2024 7:33 PM CDT) Sodium 123(L) 135 - 145 mmol/L [facility] ([place]) Blood 12/30/2024 7:33 PM CDT 12/30/2024 7:45 PM CDT Narrative OSWALDOSUBHASH ARABELLA ([place]) - 12/30/2024 8:[address] salvador for delta sodium greater than 3 meq between any two consecutive blood draws, or 6 between any 3 consecutive blood draws. Edgar Salvador MD LAB BLOOD ORDERABLES Final Re sult Performing Organization Address [facility] Co de Phone Number K[facility]I BELL ([place]) 1 [facility] [place] [address] * (ABNORMAL) POCT glucose (12/30/2024 4:57 PM CDT) Glucose, POC 268(H) 70 - 199 mg/dL Blood 12/30/2024 4:57 PM CDT 12/30/2024 4:57 PM CDT Lukas Gant DO LAB POCT ORDERABLES - DEVICE Final Result Performing Organization Address [facility]/ZIP Co de Phone Number [facility]I BELL ([place]) 1 [facility] [employer] [place] [address] * (ABNORMAL) Sodium level (12/30/2024 3:57 PM CDT) Sodium 122(L) 135 - 145 mmol/L K[facility]I BELL (NAOMI) Blood 12/30/2024 3:57 PM CDT 12/30/2024 4:01 PM CDT Narrative [facility]I BELL ([place]) - 12/30/2024 4:[address] salvador for delta sodium greater than 3 meq between any two consecutive blood draws, or 6 between any 3 consecutive blood draws. us Edgar Salvador MD LAB BLOOD ORDERABLES Final Re sult Performing Organization Address City/[facility]/ZIP Co de Phone Number KIMI BELL (GAL[place]) 1 [facility] [place] [employer] [place] [address] * Osmolality, blood (12/30/2024 2:39 PM CDT) Osmo 293 275 - 300 mOsm/kg Comment:Testing performed by : [facility], [address] [place] [address], [address] Blood 12/30/2024 2:39 PM CDT 12/30/2024 6:52 PM CDT Edgar Salvador MD LAB BLOOD ORDERABLES Final Re sult Performing Organization Address [facility] Co de Phone Number KIMI BELL ([place]) 1 [facility] [place] [address] * Cholesterol, LDL, direct (12/30/2024 2:39 PM CDT) LDL Cholesterol, Direct 45 <=129 mg/dL Comment: Interpretive Data Ages < or = 19 years Acceptable: <110 mg/dL Borderline high: 110-129 mg/dL High: >or= 130 mg/dL Ages > or = 20 years Optimal: <100 mg/dL Near optimal: 100-129 mg/dL Borderline high: 130-159 mg/dL High: >160 mg/dL Literature References: 1. Expert Panel on Integrated Guidelines for Cardiovascular Health and Risk Reduction in Children and Adolescents. Pediatrics 2011;128:S213 2. NCEP Expert Panel. Circulation 2004;110:227 Current Interpretive Data was last revised on 2018. Testing performed by: [facility], [address] [place] [address]., [id number] Blood 12/30/2024 2:39 PM CDT 12/30/2024 5:52 PM CDT Narrative KIMI ARABELLA (NAOMI) - 12/30/2024 7:21 PM CDT Cholesterol, LDL, direct reflexed based on Elevated Triglyceride (>400) us Edgar Salvador MD LAB BLOOD ORDERABLES Final Re sult OSWALDOSUBHASH BELL (NAOMI) 1 [facility] [place] [address] * (ABNORMAL) Lipid panel (12/30/2024 2:39 PM CDT) Cholesterol 1,211(H) 30 - 199 mg/dL [facility]I [facility] (NAOMI) Comment: Interpretive Data Ages < or = 19 years Acceptable: <170 mg/dL Borderline high: 170-199 mg/dL High: >or= 200 mg/dL Ages > or = 20 years Desirable: <200 mg/dL Borderline high: 200-239 mg/dL High: >or= 240 mg/dL Literature References: 1. Expert Panel on Integrated Guidelines for Cardiovascular Health and Risk Reduction in Children and Adolescents. Pediatrics 2011;128:S213 2. NCEP Expert Panel. Circulation 2004;110:227 Current Interpretive Data was last revised on 2018. Triglycerides 506(H) <=149 mg/dL [facility] (NAOMI) Comment: Interpretive Data Ages < or = 9 years Acceptable: <75 mg/dL Borderline high: 75-99 mg/dL High: >or= 100 mg/dL Ages 10 to 20 years Acceptable: <90 mg/dL Borderline high: 90-129 mg/dL High: >or= 130 mg/dL Ages > or = 20 years Desirable: <150 mg/dL Borderline high: 150-199 mg/dL High: 200-499 mg/dL Very high: >or= 499 mg/dL Literature References: 1. Expert Panel on Integrated Guidelines for Cardiovascular Health and Risk Reduction in Children and Adolescents. Pediatrics 2011;128:S213 2. NCEP Expert Panel. Circulation 2004;110:227 Current Interpretive Data was last revised on 2018. HDL 7(L) >=40 mg/dL [facility]I BE[facility] (NAOMI) Comment: Interpretive Data Ages < or = 19 years Acceptable: >45 mg/dL Borderline low: 40-45 mg/dL Low: <40 mg/dL Ages > or = 20 years Desirable: >or= 60 mg/dL Low: <40 mg/dL Literature References: 1. Expert Panel on Integrated Guidelines for Cardiovascular Health and Risk Reduction in Children and Adolescents. Pediatrics 2011;128:S213 2. NCEP Expert Panel. Circulation 2004;110:227 Current Interpretive Data was last revised on 2018. LDL, calculated See Comment <=129 mg/dL KIMI BELL ([place]AY) Comment: Unable to calculate due to elevated Triglycerides. Interpretive Data Ages < or = 19 years Acceptable: <110 mg/dL Borderline high: 110-129 mg/dL High: >or= 130 mg/dL Ages > or = 20 years Optimal: <100 mg/dL Near optimal: 100-129 mg/dL Borderline high: 130-159 mg/dL High: >160 mg/dL Calculated using the Everardo LDL-C estimating equation. This equation was implemented on 2024. Prior to this date LDL-C was estimated using the Friedewald equation. Literature References: 1. Expert Panel on Integrated Guidelines for Cardiovascular Health and Risk Reduction in Children and Adolescents. Pediatrics 2011;128:S213 2. NCEP Expert Panel. Circulation 2004;110:227 3. Everardo Cuenca et al. BRIANA Cardiol. 2020 September 23;5(5):540-548. doi: 10.1001/[email or web address].2020.0013 Current Interpretive Data was last revised on 2024. Testing performed by: [facility], [facility], [place], [address] Non-HDL Cholesterol 1,204 mg/dL KIMI BELL ([place]) Comment: Interpretive Data Ages < or = 19 years Acceptable: <120 mg/dL Borderline high: 120-144 mg/dL High: >145 mg/dL Ages > or = 20 years When triglycerides are >200 mg/dL, Non-HDL cholesterol is a secondary target of therapy with treatment goals that are 30 mg/dL greater than the LDL cholesterol target. Literature References: 1. Expert Panel on Integrated Guidelines for Cardiovascular Health and Risk Reduction in Children and Adolescents. Pediatrics 2011;128:S213 2. NCEP Expert Panel. Circulation 2004;110:227 Current Interpretive Data was last revised on 2018. Testing performed by: [facility], [facility], [place], [address] Chol/HDL ratio 173 GARY Nance ARABELLA (GAL[place]AY) Comment:Testing performed by : [facility], [facility], [place], [address] Blood 12/30/2024 2:39 PM CDT 12/30/2024 3:00 PM CDT Edgar Salvador MD LAB BLOOD ORDERABLES Final Re sult [facility]IMI BELL ([place]) 1 [facility] [place] [address] * XR Chest PA Lateral 2 Views (12/30/2024 2:09 PM CDT) Anatomical Region Laterality Modality Body, Chest N/A Computed Radiogr aphy 12/30/2024 6:53 PM CDT Narrative 12/30/2024 6:54 PM CDT EXAM DESCRIPTION: XR CHEST PA LATERAL 2 VIEWS REASON FOR STUDY: hyponatremia hyponatremia TECHNIQUE: 2 radiographic view(s) of the chest. COMPARISON: None FINDINGS: LUNGS: No focal opacity, pleural effusion, or pneumothorax. HEART/MEDIASTINUM: Cardiac silhouette normal in size. Mediastinal and hilar contours appear normal. LINES/TUBES: None. BONES: No acute osseous abnormality. IMPRESSION: No acute cardiopulmonary abnormality. THIS IS AN ELECTRONICALLY VERIFIED FINAL REPORT 12/30/2024 6:54 PM - Electronically signed by Gregory Moreno M.D. LL: DONG Report ID: [id number] Reading Location: [id number] Procedure Note Gregory Moreno MD - 12/30/2024 EXAM DESCRIPTION: XR CHEST PA LATERAL 2 VIEWS REASON FOR STUDY: hyponatremia hyponatremia TECHNIQUE: 2 radiographic view(s) of the chest. COMPARISON: None FINDINGS: LUNGS: No focal opacity, pleural effusion, or pneumothorax. HEART/MEDIASTINUM: Cardiac silhouette normal in size. Mediastinal andhilar contours appear normal. LINES/TUBES: None. BONES: No acute osseous abnormality. IMPRESSION: No acute cardiopulmonary abnormality. THIS IS AN ELECTRONICALLY VERIFIED FINAL REPORT 12/30/2024 6:54 PM - Electronically signed by Gregory Moreno M.D. LL: LL Report ID: [id number] Reading Location: [id number] Edgar Salvador MD IMG XR PROCEDURES Final Resul t * (ABNORMAL) POCT glucose (12/30/2024 12:22 PM CDT) Glucose, POC 275(H) 70 - 199 mg/dL Blood 12/30/2024 12:2 2 PM CDT 12/30/2024 12:22 PM CDT Lukas Gant DO LAB POCT ORDERABLES - DEVICE Final Result Performing Organization Address [facility]/ZIP Co de Phone Number [facility] ([place]) 1 [facility] [place] [address] * (ABNORMAL) Sodium level (12/30/2024 12:11 PM CDT) Sodium 120(C) 135 - 145 mmol/L [facility] ([place]) Comment:Critical Result call ed by [id number] at 2024-12-30 12:52:00. Result Read Back by Dave Powell RN IMU Blood 12/30/2024 12:1 1 PM CDT 12/30/2024 12:16 PM CDT Karely Goldstein MD LAB BLOOD ORDERABLES Rosie l Result [facility] ([place]OMI) 1 [facility] [place] [address] * eGFR (12/30/2024 9:22 AM CDT) eGFR >90 >=60 mL/min/1. 73 m2 Comment: Interpretive Data Reference Interval Normal >/= 90 mL/min/1.73m2 Mildly decreased* 60 - 89 mL/min/1.73m2 Mildly to moderately decreased 45 - 59 mL/min/1.73m2 Moderately to severely decreased 30 - 44 mL/min/1.73m2 Severely decreased 15 - 29 mL/min/1.73m2 Kidney Failure < 15 mL/min/1.73m2 *Relative to young adult level Estimated glomerular filtration rate is determined by the 2020 CKD-EPI equation recommended by the National Kidney Foundation (A Unifying Approach to GFR Estimation: Recommendations of the NKF-ASK Task Force on Reassessing the Inclusion of Race in Diagnosing Kidney Disease, JASN 2020). The CKD-EPI equation should not be used for patients with unstable renal function and has not been validated in children and those over 70. Current interpretive data was last reviewed 2021. Blood 12/30/2024 9:22 AM CDT 12/30/2024 9:49 AM CDT us Edgar Salvador MD LAB BLOOD ORDERABLES Final Re sult [facility] [place] 1 [facility] [place] [address] * Pro B-type natriuretic peptide (12/30/2024 9:22 AM CDT) NT-proBNP <36 <=300 pg/mL Comment: Interpretive Comments: A. Dyspnea in Acute Care Setting All Ages: < 300 pg/ml, acute heart failure unlikely. < 50 yrs: 300 - 450 pg/ml, further investigation warranted. > 450 pg/ml, acute heart failure likely. 50 - 74 yrs: 300 - 900 pg/ml, further investigation warranted. > 900 pg/ml, acute heart failure likely . > or = 75 yrs: 450 - 1800 pg/ml, further investigation warranted. > 1800 pg/ml, acute heart failure likely. B. Non-acute Setting < 75 yrs < 125 pg/ml, rules out heart failure. > or = 125 pg/ml, further investigation warranted. > or = 75 yrs < 450 pg/ml, rules out heart failure. > or = 450 pg/ml, further investigation warranted. - Knowledge of each individual patient's NT-proBNP range may be more useful than using similar cut-points for every patient. Please note that marked elevations in NT-proBNP levels may be observed in state other than Left Ventricular Congestive Failure, including: acute coronary syndromes, right heart strain/failure (including pulmonary embolism and cor pulmonale), critical illness, renal failure, as well as advanced age. - References: 1. Flor ARRIAGA et.al. Eur Heart J. 2006:27:330-337. 2. Kenny RW, Judi AM. J. AM Idalia Cardiol: Cardiovasc Imag. 2009;2: 216- 225. Interpretive Data Last Revised Date: 2018. Blood 12/30/2024 9:22 AM CDT 12/30/2024 9:49 AM CDT Edgar Salvador MD LAB BLOOD ORDERABLES Final Re sult [facility] ([place]) 1 [facility] [place] [address] * (ABNORMAL) Renal function panel (12/30/2024 9:22 AM CDT) Sodium 122(L) 135 - 145 mmol/L [facility] ([place]) Potassium, pl 3.9 3.3 - 4.9 mmol/L [facility] ([place]) Chloride 89(L) 97 - 110 mmol/L [facility] ([place]) CO2 18(L) 22 - 32 mmol/L [facility] ([place]) Anion gap 15 2 - 15 mmol/L [facility] ([place]) BUN 5(L) 6 - 25 mg/dL [facility] ([place]) Creatinine 0.54(L) 0.60 - 1.10 mg/dL [facility] ([place]) Glucose 257(H) 70 - 199 mg/dL [facility] ([place]) Comment: Interpretive Data Fasting glucose >/= 126 mg/dl is diagnostic for diabetes. Fasting is defined as no caloric intake for at least 8 hours. Fasting glucose between 100 mg/dl to 125 mg/dl is diagnostic of prediabetes. In a patient with classic symptoms of hyperglycemia or hyperglycemic crisis, a random glucose >/= 200 mg/dl is diagnostic for diabetes. In the absence of unequivocal hyperglycemia, results should be confirmed by repeat testing. The classification and Diagnosis of Diabetes Diabetes Care 2021; 46: S19-S40. Current interpretive data was last revised 2022. Calcium 8.7 8.5 - 10.3 mg/dL [facility] ([place]) Phosphorus, pl 2.7 2.3 - 4.5 mg/dL [facility] ([place]) Albumin 3.3(L) 3.5 - 5.0 g/dL [facility] ([place]) Blood 12/30/2024 9:22 AM CDT 12/30/2024 9:49 AM CDT us Edgar Salvador MD LAB BLOOD ORDERABLES Final Re sult [facility] ([place]) 1 [facility] [place] [address] * (ABNORMAL) Urinalysis reflex to microscopic (12/30/2024 8:43 AM CDT) Color, ur Yellow Yellow Clarity, ur Clear Clear [facility] ([place]) Specific gravity, ur 1.014 1.003 - 1.030 [facility] ([place]) pH, urine 5.5 [facility] ([place]) Comment: Interpretive Data U rine pH is affected by diet, medications, systemic acid-base disturbances, and renal tubular function. pH may affect urinary stone formation. For example, urine pH below 6.0 may help reduce the tendency for calcium phosphate stones and pH greater than 6.0 may reduce the tendency for uric acid stone formation. Source: [facility] [employer] Current Interpretive Data was last revised on 2017 Protein, ur ql Negative Negative [facility] ([place]) Glucose, ur ql 4+(A) Negative [facility] ([place]) Ketones, ur Negative Negative [facility] ([place]) Bilirubin, ur Negative Negative [facility] ([place]) Blood, ur Negative Negative [facility] ([place]) Urobilinogen, ur <2.0 <2.0 mg/dL [facility] ([place]) Nitrite, ur Negative Negative [facility] ([place]) Leukocyte esterase, ur 2+(A) Negative [facility] ([place]) UA reflex comment Reflex to microscopic UA will be performed. [facility] ([place]) Urine 12/30/2024 8:43 AM CDT 12/30/2024 8:55 AM CDT us Edgar Salvador MD LAB URINE ORDERABLES Final Re sult Performing Organization Address City/[facility]/ZIP Co de Phone Number KIMI BELL ([place]) 1 [facility] [place] [address] * Sodium, urine, random (12/30/2024 8:43 AM CDT) Sodium, ur 106 mmol/L [facility] (NAOMI) Comment: Interpretive Data No reference range established. Current interpretive data was last revised 2018. Urine 12/30/2024 8:43 AM CDT 12/30/2024 8:55 AM CDT Narrative [facility] (NAOMI) - 12/30/2024 9:08 AM CDT No normal range Lukas Gant DO LAB URINE ORDERABLES F inal Result Performing Organization Address [facility] Co de Phone Number KIMI BELL ([place]) 1 [facility] [place] [address] * Osmolality, urine (12/30/2024 8:43 AM CDT) Osmo, ur 510 mOsm/kg Comment:Testing performed by : [facility], 1 [facility], [place]., [address] Urine 12/30/2024 8:43 AM CDT 12/30/2024 12:12 PM CDT Lukas Gant DO LAB URINE ORDERABLES F inal Result Performing Organization Address City/[facility]/ZIP Co de Phone Number [facility] ([place]) [address] [place] [id number] * (ABNORMAL) Urinalysis, microscopic only (12/30/2024 8:43 AM CDT) WBC, ur 11-20(A) 0 - 5 /HPF RBC, ur 0-2 0 - 2 /HPF [facility] ([place]) Mucous, ur Present(A) [facility] ([place]) Urine 12/30/2024 8:43 AM CDT 12/30/2024 8:55 AM CDT us Edgar Salvador MD LAB URINE ORDERABLES Final Re sult Performing Organization Address City/[facility] Co de Phone Number [facility] ([place]) 1 [facility] [place] [employer] [place] [address] * (ABNORMAL) POCT glucose (12/30/2024 8:13 AM CDT) [facility] Glucose, POC 298(H) 70 - 199 mg/dL Blood 12/30/2024 8:13 AM CDT 12/30/2024 8:13 AM CDT Lukas Gant DO LAB POCT ORDERABLES - DEVICE Final Result Performing Organization Address City/[facility] Co de Phone Number [facility] ([place]) 1 [place] [address] * eGFR (12/30/2024 4:31 AM CDT) Pathologist [facility] eGFR >90 >=60 mL/min/1. 73 m2 Comment: Interpretive Data Reference Interval Normal >/= 90 mL/min/1.73m2 Mildly decreased* 60 - 89 mL/min/1.73m2 Mildly to moderately decreased 45 - 59 mL/min/1.73m2 Moderately to severely decreased 30 - 44 mL/min/1.73m2 Severely decreased 15 - 29 mL/min/1.73m2 Kidney Failure < 15 mL/min/1.73m2 *Relative to young adult level Estimated glomerular filtration rate is determined by the 2020 CKD-EPI equation recommended by the National Kidney Foundation (A Unifying Approach to GFR Estimation: Recommendations of the NKF-ASK Task Force on Reassessing the Inclusion of Race in Diagnosing Kidney Disease, JASN 202). The CKD-EPI equation should not be used for patients with unstable renal function and has not been validated in children and those over 70. Current interpretive data was last reviewed 2021. Blood 12/30/2024 4:31 AM CDT 12/30/2024 4:48 AM CDT Karely Goldstein MD LAB BLOOD ORDERABLES Rosie lucia Result [facility] ([place]) 1 [facility] [place] [address] * (ABNORMAL) Differential, auto (12/30/2024 4:31 AM CDT) Neutrophil abs 5.79 1.50 - 6.50 K/cumm Imm gran abs 0.05 0.00 - 0.10 K/cumm [facility] ([place]) Lymphocyte abs 1.80 0.80 - 3.30 K/cumm [facility] ([place]) Monocyte abs 0.84(H) 0.20 - 0.80 K/cumm [facility] ([place]) Eosinophil abs 0.25 0.00 - 0.50 K/cumm [facility] ([place]) Basophil abs 0.06 0.00 - 0.10 K/cumm [facility] ([place]) Neutrophil pct 65.8 % [facility] ([place]) Comment: Interpretive Data Percent cell count reference ranges are not reported, since discordance with absolute values may lead to misinterpretation of CBC data. Current Interpretive Data was last revised on 2017. Imm gran pct 0.6 % [facility] ([place]) Comment: Interpretive Data Percent cell count reference ranges are not reported, since discordance with absolute values may lead to misinterpretation of CBC data. Current Interpretive Data was last revised on 2017. Lymphocyte pct 20.5 % [facility] ([place]) Comment: Interpretive Data Percent cell count reference ranges are not reported, since discordance with absolute values may lead to misinterpretation of CBC data. Current Interpretive Data was last revised on 2017. Monocyte pct 9.6 % [facility] ([place]) Comment: Interpretive Data Percent cell count reference ranges are not reported, since discordance with absolute values may lead to misinterpretation of CBC data. Current Interpretive Data was last revised on 2017. Eosinophil pct 2.8 % [facility] ([place]) Comment: Interpretive Data Percent cell count reference ranges are not reported, since discordance with absolute values may lead to misinterpretation of CBC data. Current Interpretive Data was last revised on 2017. Basophil pct 0.7 % [facility] ([place]) Comment: Interpretive Data Percent cell count reference ranges are not reported, since discordance with absolute values may lead to misinterpretation of CBC data. Current Interpretive Data was last revised on 2017. Blood 12/30/2024 4:31 AM CDT 12/30/2024 4:48 AM CDT Karely Goldstein MD LAB BLOOD ORDERABLES Rosie l Result [facility] ([place]) 1 [facility] [place] [address] * (ABNORMAL) CBC with auto differential (12/30/2024 4:31 AM CDT) WBC 8.79 3.80 - 9.90 K/cumm Hgb 11.8(L) 11.9 - 15.5 g/dL [facility] ([place]) Hct 34.4(L) 35.6 - 45.5 % [facility] ([place]) Plt 212 150 - 400 K/cumm [facility] ([place]) MPV 11.0 9.1 - 12.3 fL [facility] ([place]) RBC 3.96 3.90 - 5.20 M/cumm [facility] ([place]) MCV 86.9 81.3 - 96.4 fL [facility] ([place]) MCH 29.8 27.1 - 33.3 pg [facility] ([place]) MCHC 34.3 32.3 - 35.7 g/dL [facility] ([place]) RDW CV 13.1 11.1 - 14.9 % [facility] ([place]) RDW SD 41.7 35.7 - 48.1 fL [facility] ([place]) NRBC abs 0.00 0.00 - 0.01 K/cumm [facility] (NA[place]) Morphologic Screen Results confirmed by manual morphology review. [facility] ([place]) Blood 12/30/2024 4:31 AM CDT 12/30/2024 4:48 AM CDT Karely Goldstein MD LAB BLOOD ORDERABLES Rosie l Result Performing Organization Address [facility] Co de Phone Number [facility] ([place]) 1 [facility] [place] [address] * (ABNORMAL) Erythrocyte sedimentation rate (12/30/2024 4:31 AM CDT) Erythrocyte sedimentation rate 36(H) 1 - 20 mm/hr Blood 12/30/2024 4:31 AM CDT 12/30/2024 4:48 AM CDT Sharon Mayo MD LAB BLOOD ORDERABLES Final Resul t Performing Organization Address [facility] Co de Phone Number [facility] ([place]) 1 [facility] [place] [address] * CA 125 (12/30/2024 4:31 AM CDT) Pathologist [facility] CA 125 ag 27.0 1.0 - 35.0 units/mL Comment: Interpretive Data The Jose CA 125 assay procedure was used. Results from different manufacturers or methods may not be comparable. Serial testing should be performed using the same method. Testing performed by: [facility], [address] [place] [address], [place] [address] Blood 12/30/2024 4:31 AM CDT 12/30/2024 7:10 AM CDT us Sharon Mayo MD LAB BLOOD ORDERABLES Final Resul t [facility] ([place]) 1 [facility] [place] [address] * (ABNORMAL) Comprehensive metabolic panel (12/30/2024 4:31 AM CDT) Sodium 123(L) 135 - 145 mmol/L [facility] ([place]) Potassium, pl 3.9 3.3 - 4.9 mmol/L [facility] ([place]) Chloride 91(L) 97 - 110 mmol/L [facility] ([place]) CO2 19(L) 22 - 32 mmol/L [facility] ([place]) Anion gap 13 2 - 15 mmol/L [facility] ([place]) BUN 6 6 - 25 mg/dL [facility] ([place]) Creatinine 0.59(L) 0.60 - 1.10 mg/dL [facility] ([place]) Glucose 224(H) 70 - 199 mg/dL [facility] ([place]) Comment: Interpretive Data Fasting glucose >/= 126 mg/dl is diagnostic for diabetes. Fasting is defined as no caloric intake for at least 8 hours. Fasting glucose between 100 mg/dl to 125 mg/dl is diagnostic of prediabetes. In a patient with classic symptoms of hyperglycemia or hyperglycemic crisis, a random glucose >/= 200 mg/dl is diagnostic for diabetes. In the absence of unequivocal hyperglycemia, results should be confirmed by repeat testing. The classification and Diagnosis of Diabetes Diabetes Care 2021; 46: S19-S40. Current interpretive data was last revised 2022. Calcium 9.1 8.5 - 10.3 mg/dL [facility] ([place]) Bilirubin, total 0.2 0.1 - 1.2 mg/dL [facility] ([place]) Protein, pl 5.7(L) 6.5 - 8.5 g/dL [facility] ([place]) Albumin 3.2(L) 3.5 - 5.0 g/dL [facility] ([place]) Alk phos 96 40 - 130 Units/L [facility] ([place]) ALT 26 7 - 45 Units/L [facility] ([place]) AST 20 10 - 45 Units/L [facility] ([place]) Comment:Hemolysis present. R esults may be affected. Blood 12/30/2024 4:31 AM CDT 12/30/2024 4:48 AM CDT Karely Goldstein MD LAB BLOOD ORDERABLES Rosie l Result [facility] ([place]) 1 [facility] [employer] [place] [address] * (ABNORMAL) POCT glucose (12/30/2024 2:01 AM CDT) Glucose, POC 357(H) 70 - 199 mg/dL Blood 12/30/2024 2:01 AM CDT 12/30/2024 2:01 AM CDT Sharon Mayo MD LAB POCT ORDERABLES - DEVICE Fin al Result Performing Organization Address [facility]/ZIP Co de Phone Number [facility] ([place]) 1 [facility] [employer] [place] [address] * (ABNORMAL) Sodium level (12/30/2024 1:29 AM CDT) Sodium 125(L) 135 - 145 mmol/L [facility] ([place]) Blood 12/30/2024 1:29 AM CDT 12/30/2024 1:30 AM CDT Karely Goldstein MD LAB BLOOD ORDERABLES Rosie l Result [facility] ([place]) 1 [facility] [employer] [place] [address] * (ABNORMAL) POCT glucose (12/29/2024 11:57 PM CDT) Glucose, POC 363(H) 70 - 199 mg/dL Blood 12/29/2024 11:5 7 PM CDT 12/29/2024 11:57 PM CDT us Sharon Mayo MD LAB POCT ORDERABLES - DEVICE Fin al Result Performing Organization Address City/[facility]/ZIP Co de Phone Number [facility] ([place]) 1 [facility] [employer] [place] [address] * (ABNORMAL) POCT glucose (12/29/2024 10:23 PM CDT) Pathologist [facility] Glucose, POC 245(H) 70 - 199 mg/dL Blood 12/29/2024 10:2 3 PM CDT 12/29/2024 10:23 PM CDT us Sharon Mayo MD LAB POCT ORDERABLES - DEVICE Fin al Result Performing Organization Address [facility]/ZIP Co de Phone Number [facility] ([place]) 1 [facility] [employer] [place] [address] * (ABNORMAL) POCT glucose (12/29/2024 8:42 PM CDT) Pathologist [facility] Glucose, POC 316(H) 70 - 199 mg/dL Blood 12/29/2024 8:42 PM CDT 12/29/2024 8:42 PM CDT us Malick Carrero MD LAB POCT ORDERABLES - DEVICE Fi nal Result Performing Organization Address City/[facility]/ZIP Co de Phone Number [facility] ([place]) 1 [facility] [employer] [place] [address] * eGFR (12/29/2024 6:34 PM CDT) [facility] eGFR >90 >=60 mL/min/1. 73 m2 Comment: Interpretive Data Reference Interval Normal >/= 90 mL/min/1.73m2 Mildly decreased* 60 - 89 mL/min/1.73m2 Mildly to moderately decreased 45 - 59 mL/min/1.73m2 Moderately to severely decreased 30 - 44 mL/min/1.73m2 Severely decreased 15 - 29 mL/min/1.73m2 Kidney Failure < 15 mL/min/1.73m2 *Relative to young adult level Estimated glomerular filtration rate is determined by the 2020 CKD-EPI equation recommended by the National Kidney Foundation (A Unifying Approach to GFR Estimation: Recommendations of the NKF-ASK Task Force on Reassessing the Inclusion of Race in Diagnosing Kidney Disease, JASN 2020). The CKD-EPI equation should not be used for patients with unstable renal function and has not been validated in children and those over 70. Current interpretive data was last reviewed 2021. Blood 12/29/2024 6:34 PM CDT 12/29/2024 6:38 PM CDT us Malick Carrero MD LAB BLOOD ORDERABLES Final Resu lt [facility] ([place]) 1 [facility] [place] [address] * (ABNORMAL) Basic metabolic panel (12/29/2024 6:34 PM CDT) Sodium 135 135 - 145 mmol/L [facility] ([place]) Potassium, pl 3.9 3.3 - 4.9 mmol/L [facility] ([place]) Chloride 97 97 - 110 mmol/L [facility] ([place]) CO2 22 22 - 32 mmol/L [facility] ([place]) Anion gap 16(H) 2 - 15 mmol/L [facility] ([place]) BUN 7 6 - 25 mg/dL [facility] ([place]) Creatinine 0.51(L) 0.60 - 1.10 mg/dL [facility] ([place]) Glucose 309(H) 70 - 199 mg/dL [facility] ([place]) Comment: Interpretive Data Fasting glucose >/= 126 mg/dl is diagnostic for diabetes. Fasting is defined as no caloric intake for at least 8 hours. Fasting glucose between 100 mg/dl to 125 mg/dl is diagnostic of prediabetes. In a patient with classic symptoms of hyperglycemia or hyperglycemic crisis, a random glucose >/= 200 mg/dl is diagnostic for diabetes. In the absence of unequivocal hyperglycemia, results should be confirmed by repeat testing. The classification and Diagnosis of Diabetes Diabetes Care 2021; 46: S19-S40. Current interpretive data was last revised 2022. Calcium 9.1 8.5 - 10.3 mg/dL [facility] ([place]) Blood 12/29/2024 6:34 PM CDT 12/29/2024 6:38 PM CDT us Malick Carrero MD LAB BLOOD ORDERABLES Final Resu lt [facility] ([place]) 1 [facility] [place] [address] * Blood culture Blood Peripheral (12/29/2024 2:07 PM CDT) Report Final Report: No growth Comment:Testing performed by : [facility], 1 [facility], [place]., [address] Blood (Peripheral) 12/29/2024 2:07 PM CDT 12/29/2024 5:12 PM CDT Narrative [facility] ([place]) - 01/03/2025 7:00 AM CDT From a different site than #1. Draw Blood cultures before administration of Antibiotics Collection->Peripheral 1. Blood cultures are incubated for 4 days on a continuously monitored blood culture system. The first report of a negative culture is issued within 24 hours of receipt of the specimen in the laboratory. 2. Positive culture results are reported as soon as they are detected. 3. The most important factor for detection of microbes in the setting of bloodstream infection is the volume of blood submitted for culture. Failure to collect an optimal blood volume can result in false negative blood cultures. 4. For pediatric patients, the recommended blood volume to collect follows a weight based strategy. See the electronic test catalog for collection instructions. 5. For positive blood cultures, a rapid molecular test may be performed for organism identification using the shankar ePlex blood culture identification panel for gram positive (BCID-GP) and gram negative (BCID-GN) organisms. This nucleic acid amplification test detects microbial DNA in positive blood culture broth. This assay has been cleared by the [place] Food and Drug Administration and its performance characteristics have been verified by the [facility]. For questions about this culture, contact the Microbiology Laboratory at [phone]. Interpretive data was last revised on 24. Jacqui ZAIDI LAB MICROBIOLOGY - GENERAL ORDEmgidio ANDERSON Final Result [facility] ([place]) 1 [facility] [place] [address] * US Pelvis W Endovaginal (12/29/2024 2:04 PM CDT) Anatomical Region Laterality Modality Pelvis N/A Ultrasound 12/29/2024 3:10 PM CDT Narrative 12/29/2024 3:26 PM CDT EXAM DESCRIPTION: US PELVIS W ENDOVAGINAL REASON FOR STUDY: Lower abdominal pain, bilateral adnexal cyst with abnormal presentation TECHNIQUE: Grayscale and color doppler ultrasound of the pelvic contents was performed with transabdominal and transvaginal transducer. Spectral doppler analysis was also utilized. COMPARISON: Same day CT FINDINGS: UTERUS: Anteflexed. Homogenous in echotexture and measures 7.7 x 4.5 x 6.0 cm. No discrete measurable fibroid identified. ENDOMETRIUM: Measures 5 cm in thickness. RIGHT OVARY: Measures 2.8 x 2.6 x 4.0 cm. Simple appearing unilocular cyst measuring up to 3.0 cm. There is documentation of color Doppler flow in the right ovary. LEFT OVARY: Lobulated complex left adnexal mass with cystic and solid components measuring approximately 7.6 x 5.1 x 3.4 cm. Solid components demonstrate arterial and venous waveforms. Normal ovarian parenchyma is not seen with confidence. PELVIC FLUID: Small volume simple appearing free fluid. OTHER: None. IMPRESSION: 1. Complex left adnexal mass with cystic and solid components measuring up to 7.6 cm. Recommend gynecologic follow-up and pelvic MRI with and without contrast. 2. Simple appearing right ovarian cyst measuring up to 3.0 cm. 3. Small volume simple appearing free fluid. THIS IS AN ELECTRONICALLY VERIFIED FINAL REPORT 12/29/2024 3:26 PM - Electronically signed by Long Renteria M.D. NS: NS Report ID: [id number] Reading Location: [id number] Procedure Note Long Renteria MD - 12/29/2024 EXAM DESCRIPTION: US PELVIS W ENDOVAGINAL REASON FOR STUDY: Lower abdominal pain, bilateral adnexal cyst withabnormal presentation TECHNIQUE: Grayscale and color doppler ultrasound of the pelvic contentswas performed with transabdominal and transvaginal transducer. Spectraldoppler analysis was also utilized. COMPARISON: Same day CT FINDINGS: UTERUS: Anteflexed. Homogenous in echotexture and measures 7.7 x 4.5x 6.0 cm. No discrete measurable fibroid identified. ENDOMETRIUM: Measures 5 cm in thickness. RIGHT OVARY: Measures 2.8 x 2.6 x 4.0 cm. Simple appearing unilocularcyst measuring up to 3.0 cm. There is documentation of color Doppler flow inthe right ovary. LEFT OVARY: Lobulated complex left adnexal mass with cystic and solid components measuring approximately 7.6 x 5.1 x 3.4 cm. Solid components demonstrate arterial and venous waveforms. Normal ovarian parenchyma isnot seen with confidence. PELVIC FLUID: Small volume simple appearing free fluid. OTHER: None. IMPRESSION: 1. Complex left adnexal mass with cystic and solid components measuringup to 7.6 cm. Recommend gynecologic follow-up and pelvic MRI with and without contrast. 2. Simple appearing right ovarian cyst measuring up to 3.0 cm. 3. Small volume simple appearing free fluid. THIS IS AN ELECTRONICALLY VERIFIED FINAL REPORT 12/29/2024 3:26 PM - Electronically signed by Long Renteria M.D. NS: NS Report ID: [id number] Reading Location: [place] [address] us Jacqui Basurto PA IMG US PROCEDURES Final Result * Blood culture Blood Peripheral (12/29/2024 1:38 PM CDT) Report Final Report: No growth Comment:Testing performed by : [facility], 1 [place]., [address] Blood (Peripheral) 12/29/2024 1:38 PM CDT 12/29/2024 5:12 PM CDT Narrative [facility] ([place]) - 01/03/2025 7:00 AM CDT Draw Blood cultures before administration of Antibiotics Collection->Peripheral 1. Blood cultures are incubated for 4 days on a continuously monitored blood culture system. The first report of a negative culture is issued within 24 hours of receipt of the specimen in the laboratory. 2. Positive culture results are reported as soon as they are detected. 3. The most important factor for detection of microbes in the setting of bloodstream infection is the volume of blood submitted for culture. Failure to collect an optimal blood volume can result in false negative blood cultures. 4. For pediatric patients, the recommended blood volume to collect follows a weight based strategy. See the electronic test catalog for collection instructions. 5. For positive blood cultures, a rapid molecular test may be performed for organism identification using the shankar ePlex blood culture identification panel for gram positive (BCID-GP) and gram negative (BCID-GN) organisms. This nucleic acid amplification test detects microbial DNA in positive blood culture broth. This assay has been cleared by the [place] Food and Drug Administration and its performance characteristics have been verified by the [facility]. For questions about this culture, contact the Microbiology Laboratory at [phone]. Interpretive data was last revised on 24. us Jacqui ZAIDI LAB MICROBIOLOGY - GENERAL AN ANDERSON Final Result [facility] ([place]) 1 [facility] [place] [address] * POCT glucose (12/29/2024 1:31 PM CDT) Glucose, POC 191 70 - 199 mg/dL Blood 12/29/2024 1:31 PM CDT 12/29/2024 1:31 PM CDT Notinfile Unknown LAB POCT ORDERABLES - DEVICE F inal Result [facility] ([place]) 1 [facility] [place] [address] * Osmolality, blood (12/29/2024 12:15 PM CDT) Pathologist [facility] Osmo 287 275 - 300 mOsm/kg Comment:Testing performed by : [facility], [address] [place] [address], [id number] Blood 12/29/2024 12:1 5 PM CDT 12/29/2024 2:48 PM CDT Jacqui ZAIDI LAB BLOOD ORDERABLES Final Resu lt Performing Organization Address [facility] Co de Phone Number [facility] ([place]) 1 [place] [address] * (ABNORMAL) Cortisol (12/29/2024 12:15 PM CDT) Pathologist [facility] Cortisol 2.6(L) 4.8 - 19.5 mcg/dl Comment: Interpretive Data Normal Range: 4.8 - 19.5 mcg/dL; Evening: Half of morning value. This analyte undergoes marked diurnal variation. Ranges indicated apply to morning specimens. Current interpretive data was last revised 2018. Testing performed by: [facility], [address] [place] [address], [place] [address] Blood 12/29/2024 12:1 5 PM CDT 12/29/2024 2:55 PM CDT Jacqui ZAIDI LAB BLOOD ORDERABLES Final Resu lt [facility] ([place]) 1 [facility] [place] [address] * (ABNORMAL) POCT glucose (12/29/2024 12:11 PM CDT) Glucose, POC 250(H) 70 - 199 mg/dL Blood 12/29/2024 12:1 1 PM CDT 12/29/2024 12:11 PM CDT us Notinfile Unknown LAB POCT ORDERABLES - DEVICE F inal Result Performing Organization Address City/[facility]/ZIP Co de Phone Number [facility] ([place]) 1 [facility] [place] [address] * eGFR (12/29/2024 10:12 AM CDT) eGFR >90 >=60 mL/min/1. 73 m2 Comment: Interpretive Data Reference Interval Normal >/= 90 mL/min/1.73m2 Mildly decreased* 60 - 89 mL/min/1.73m2 Mildly to moderately decreased 45 - 59 mL/min/1.73m2 Moderately to severely decreased 30 - 44 mL/min/1.73m2 Severely decreased 15 - 29 mL/min/1.73m2 Kidney Failure < 15 mL/min/1.73m2 *Relative to young adult level Estimated glomerular filtration rate is determined by the 2020 CKD-EPI equation recommended by the National Kidney Foundation (A Unifying Approach to GFR Estimation: Recommendations of the NKF-ASK Task Force on Reassessing the Inclusion of Race in Diagnosing Kidney Disease, JASN 2020). The CKD-EPI equation should not be used for patients with unstable renal function and has not been validated in children and those over 70. Current interpretive data was last reviewed 2021. Blood 12/29/2024 10:1 2 AM CDT 12/29/2024 10:26 AM CDT us Jacqui ZAIDI LAB BLOOD ORDERABLES Final Resu lt [facility] ([place]) 1 [facility] Department [place] [address] * (ABNORMAL) Thyroid Function Sabine (12/29/2024 10:12 AM CDT) Pathologist [facility] TSH 18.50(H) 0.30 - 4.20 mcIUnit/mL [facility] ([place]) Blood 12/29/2024 10:1 2 AM CDT 12/29/2024 11:50 AM CDT Jacqui ZAIDI LAB BLOOD ORDERABLES Final Resu lt Performing Organization Address City/[facility]/ZIP Co de Phone Number [facility] ([place]) 1 [facility] [employer] [place] [address] * (ABNORMAL) T4, free (12/29/2024 10:12 AM CDT) [facility] Free T4 0.15(L) 0.90 - 1.70 ng/dL [facility] ([place]) Blood 12/29/2024 10:1 2 AM CDT 12/29/2024 11:50 AM CDT Narrative [facility] ([place]) - 12/29/2024 12:39 PM CDT This test was reflexed from a TSH result. Jacqui ZAIDI LAB BLOOD ORDERABLES Final Resu lt Performing Organization Address City/[facility] Co de Phone Number [facility] ([place]) 1 [facility] [place] [employer] [place] [address] * (ABNORMAL) Comprehensive metabolic panel (12/29/2024 10:12 AM CDT) [facility] Sodium 120(C) 135 - 145 mmol/L [facility] ([place]) Comment:Critical Result call ed by [email or web address] at 2024-12-29 11:19:54. Result Read Back by ACE CARLSON-ER Potassium, pl 4.2 3.3 - 4.9 mmol/L [facility] ([place]) Chloride 87(L) 97 - 110 mmol/L [facility] ([place]) CO2 20(L) 22 - 32 mmol/L [facility] ([facility]) Anion gap 14 2 - 15 mmol/L [facility]) BUN 9 6 - 25 mg/dL [facility]) Creatinine 0.64 0.60 - 1.10 mg/dL [facility] ([place]) Glucose 303(H) 70 - 199 mg/dL [facility] ([facility]) Comment: Interpretive Data Fasting glucose >/= 126 mg/dl is diagnostic for diabetes. Fasting is defined as no caloric intake for at least 8 hours. Fasting glucose between 100 mg/dl to 125 mg/dl is diagnostic of prediabetes. In a patient with classic symptoms of hyperglycemia or hyperglycemic crisis, a random glucose >/= 200 mg/dl is diagnostic for diabetes. In the absence of unequivocal hyperglycemia, results should be confirmed by repeat testing. The classification and Diagnosis of Diabetes Diabetes Care 2021; 46: S19-S40. Current interpretive data was last revised 2022. Calcium 8.7 8.5 - 10.3 mg/dL [facility] ([facility]) Comment:Testing performed by : [place], [address] Bilirubin, total 0.2 0.1 - 1.2 mg/dL [facility] ([place]) Protein, pl 5.8(L) 6.5 - 8.5 g/dL [facility] ([place]) Albumin 3.6 3.5 - 5.0 g/dL [facility] ([place]) Alk phos 93 40 - 130 Units/L [facility]) ALT 25 7 - 45 Units/L [facility] ([facility]) Comment:Testing performed by : [place], [address] AST 17 10 - 45 Units/L [facility] ([place]) Comment:Testing performed by : [place], [address] Blood 12/29/2024 10:1 2 AM CDT 12/29/2024 10:26 AM CDT us Jacuqi ZAIDI LAB BLOOD ORDERABLES Final Resu lt [facility] ([place]) [address] [place] [address] [place] [address] * CT Abdomen Pelvis W Contrast (12/29/2024 9:50 AM CDT) Anatomical Region Laterality Modality Body N/A Computed Tomogra phy 12/29/2024 10:1 5 AM CDT Narrative 12/29/2024 10:22 AM CDT EXAM DESCRIPTION: CT ABDOMEN PELVIS W CONTRAST REASON FOR STUDY: Abdominal pain, acute, nonlocalized Back pain, nausea, and vomiting x 3 weeks, recently diagnosed with UTI. TECHNIQUE: CT scan of the abdomen and pelvis performed with intravenous and without oral contrast using helical scanning technique with dynamic intravenous contrast injection. Reconstructed coronal and sagittal MPR images reviewed. All images stored on PACS. Automated exposure control was used as a dose optimization technique for this examination. CONTRAST TYPE/DOSE: 75 ML of IOVERSOL 350 MG IODINE/ML INTRAVENOUS SYRINGE injected via intravenous COMPARISON: None available FINDINGS: LOWER CHEST: No significant pulmonary abnormalities. No effusion. LIVER: Normal size. Fatty infiltrative change. GALLBLADDER: Surgically absent with clips in place. BILE DUCTS: No intrahepatic or extrahepatic ductal dilatation. SPLEEN: Normal size. No focal lesions. PANCREAS: No identified cystic or solid masses. No significant calcifications. No adjacent inflammation or peripancreatic fluid collections. Pancreatic duct not dilated. ADRENALS: Normal. KIDNEYS/URINARY TRACT: No identified significant cystic or solid masses. No visualized stones. No hydronephrosis or hydroureter. Symmetric enhancement. Urinary bladder is unremarkable. GI: No dilated bowel loops. No obvious wall thickening. Normal appendix. No significant diverticular disease. Moderate to large volume stool burden. PERITONEUM: No ascites or free air. RETROPERITONEUM: No mass or adenopathy. REPRODUCTIVE: Uterus is normal in size and position. Right adnexa demonstrates a 3.7 cm hypodense lesion suggesting ovarian tissue with a cyst. Left adnexa demonstrates a multi lobular lesion with some low-density components measuring roughly 6.7 x 6.4 cm on axial image 132 of series 2. It measures 4.1 cm in cephalo caudad dimension. VASCULATURE: No abdominal aortic aneurysm. MUSCULOSKELETAL: No significant abnormality. OTHER: No other abnormality. IMPRESSION: 1. Bilateral adnexal lesions as above. Please correlate clinically and consider pelvic ultrasound to better characterize. 2. Fatty infiltrative changes of the liver. 3. Moderate to large volume stool burden. THIS IS AN ELECTRONICALLY VERIFIED FINAL REPORT 12/29/2024 10:22 AM - Electronically signed by Landen Batista M.D. RB: AYSHA Report ID: [id number] Reading Location: [place] [address] Procedure Note Landen Batista MD - 12/29/2024 EXAM DESCRIPTION: CT ABDOMEN PELVIS W CONTRAST REASON FOR STUDY: Abdominal pain, acute, nonlocalized Back pain, nausea, and vomiting x 3 weeks, recently diagnosed with UTI. TECHNIQUE: CT scan of the abdomen and pelvis performed with intravenousand without oral contrast using helical scanning technique with dynamic intravenous contrast injection. Reconstructed coronal and sagittal MPRimages reviewed. All images stored on PACS. Automated exposure control was usedas a dose optimization technique for this examination. CONTRAST TYPE/DOSE: 75 ML of IOVERSOL 350 MG IODINE/ML INTRAVENOUSSYRINGE injected via intravenous COMPARISON: None available FINDINGS: LOWER CHEST: No significant pulmonary abnormalities. No effusion. LIVER: Normal size. Fatty infiltrative change. GALLBLADDER: Surgically absent with clips in place. BILE DUCTS: No intrahepatic or extrahepatic ductal dilatation. SPLEEN: Normal size. No focal lesions. PANCREAS: No identified cystic or solid masses. No significant calcifications. No adjacent inflammation or peripancreatic fluidcollections. Pancreatic duct not dilated. ADRENALS: Normal. KIDNEYS/URINARY TRACT: No identified significant cystic or solid masses.No visualized stones. No hydronephrosis or hydroureter. Symmetricenhancement. Urinary bladder is unremarkable. GI: No dilated bowel loops. No obvious wall thickening. Normalappendix. No significant diverticular disease. Moderate to large volume stool burden. PERITONEUM: No ascites or free air. RETROPERITONEUM: No mass or adenopathy. REPRODUCTIVE: Uterus is normal in size and position. Right adnexa demonstrates a 3.7 cm hypodense lesion suggesting ovariantissue with a cyst. Left adnexa demonstrates a multi lobular lesion with some low-density components measuring roughly 6.7 x 6.4 cm on axial image 132 of series 2.It measures 4.1 cm in cephalo caudad dimension. VASCULATURE: No abdominal aortic aneurysm. MUSCULOSKELETAL: No significant abnormality. OTHER: No other abnormality. IMPRESSION: 1. Bilateral adnexal lesions as above. Please correlate clinically and consider pelvic ultrasound to better characterize. 2. Fatty infiltrative changes of the liver. 3. Moderate to large volume stool burden. THIS IS AN ELECTRONICALLY VERIFIED FINAL REPORT 12/29/2024 10:22 AM - Electronically signed by Landen Batista M.D. RB: AYSHA Report ID: [id number] Reading Location: [id number] Jacqui ZAIDI IMG CT PROCEDURES Final Result * Sepsis Lactate w/ Reflex (12/29/2024 8:54 AM CDT) Sepsis Lactate 1.2 0.7 - 2.0 mmol/L Blood 12/29/2024 8:54 AM CDT 12/29/2024 9:01 AM CDT Jacqui ZAIDI LAB BLOOD ORDERABLES Final Resu lt [facility] ([place]) 1 [facility] Department of Laboratories [place] [id number] * (ABNORMAL) Urinalysis reflex to microscopic and culture Urine, bladder (12/29/2024 8:54 AM CDT) Color, ur Yellow Yellow Clarity, ur Clear Clear [facility] ([place]) Specific gravity, ur 1.029 1.003 - 1.030 [facility] ([place]) pH, urine 6.0 [facility] ([facility]) Comment: Interpretive Data U rine pH is affected by diet, medications, systemic acid-base disturbances, and renal tubular function. pH may affect urinary stone formation. For example, urine pH below 6.0 may help reduce the tendency for calcium phosphate stones and pH greater than 6.0 may reduce the tendency for uric acid stone formation. Source: [facility] [employer] Current Interpretive Data was last revised on 2017 Protein, ur ql Negative Negative [facility] ([place]) Glucose, ur ql 4+(A) Negative [facility] ([place]) Ketones, ur 1+(A) Negative [facility] ([place]) Bilirubin, ur Negative Negative [facility] ([place]) Blood, ur Trace(A) Negative [facility] ([place]) Urobilinogen, ur <2.0 <2.0 mg/dL [facility] ([place]) Nitrite, ur Positive(A) Negative [facility] ([place]) Leukocyte esterase, ur 1+(A) Negative [facility] ([place]) UA reflex comment Reflex to microscopic UA will be performed. [facility] ([place]) Urine, bladder 12/29/2024 8: 54 AM CDT 12/29/2024 9:01 AM CDT Andre Desai MD LAB MICROBIOLOGY - GENERAL ORD ERABLES Final Result Performing Organization Address [facility] Co de Phone Number [facility] ([place]) 1 [facility] [employer] [place] [employer] [place] [address] * Sodium, urine, random (12/29/2024 8:54 AM CDT) Sodium, ur 87 mmol/L [facility] ([place]) Comment: Interpretive Data No reference range established. Current interpretive data was last revised 2018. Urine 12/29/2024 8:54 AM CDT 12/29/2024 11:50 AM CDT Narrative [facility] ([place]) - 12/29/2024 12:06 PM CDT No normal range Jacqui ZAIDI LAB URINE ORDERABLES Final Resu lt Performing Organization Address City/[facility]/ZIP Co de Phone Number [facility] ([place]) 1 [facility] Department [place] [employer] [place] [address] * hCG, urine, qualitative (12/29/2024 8:54 AM CDT) HCG, ur Negative Negative Urine 12/29/2024 8:54 AM CDT 12/29/2024 9:01 AM CDT Jacqui ZAIDI LAB URINE ORDERABLES Final Resu lt [facility] ([place]) 1 [facility] [place] [employer] [place] [address] * Osmolality, urine (12/29/2024 8:54 AM CDT) Osmo, ur 671 mOsm/kg Comment:Testing performed by : [facility], [address] [place]., [address] Urine 12/29/2024 8:54 AM CDT 12/29/2024 2:48 PM CDT Jacqui ZAIDI LAB URINE ORDERABLES Final Resu lt Performing Organization Address [facility] Co de Phone Number [facility] ([place]) 1 [facility] [place] [address] * (ABNORMAL) Urinalysis, microscopic only (12/29/2024 8:54 AM CDT) WBC, ur 11-20(A) 0 - 5 /HPF RBC, ur 0-2 0 - 2 /HPF [facility] ([place]) Epithelial cells, squamous, ur 1-5 0 - 5 /HPF [facility] ([place]) Bacteria, ur 1+(A) [facility] ([place]) Mucous, ur Present(A) [facility] ([place]) Culture Reflex Comment Reflex to urine culture will be performed. [facility] ([place]) Urine, bladder 12/29/2024 8: 54 AM CDT 12/29/2024 9:01 AM CDT Andre Desai MD LAB URINE ORDERABLES Final Res ult Performing Organization Address City/[facility]/ZIP Co de Phone Number [facility] ([place]) 1 [facility] [employer] [place] [address] * (ABNORMAL) Urine culture Urine, bladder (12/29/2024 8:54 AM CDT) Report Final Report: Greater than or equal to 100,000 colonies/mL of Escherichia coli Greater than or equal to 100,000 colonies/mL of Escherichia coli #2 (.) Comment:Testing performed by : [facility], [address] [place]., [address] Organism ESCHERICHIA COLI [facility] ([place]) Organism ESCHERICHIA COLI [facility] ([place]) Urine, bladder 12/29/2024 8: 54 AM CDT 12/29/2024 1:20 PM CDT Narrative [facility] ([place]) - 12/31/2024 11:53 AM CDT Urine culture reflexed based upon urinalysis results. Testing performed by [facility] ([phone]) Organism Antibiotic Method Susceptibility Escherichia coli Ampicillin INTERPRETATION Resistant Escherichia coli Cefazolin INTERPRETATION Susceptible Escherichia coli Nitrofurantoin INTERPRETATION Susceptible Escherichia coli Gentamicin INTERPRETATION Susceptible Escherichia coli Trimethoprim with Sulfamethoxazole IN TERPRETATION Resistant Escherichia coli Meropenem INTERPRETATION Susceptible Escherichia coli Cefepime INTERPRETATION Susceptible Escherichia coli Ciprofloxacin INTERPRETATION Susceptible Escherichia coli Ceftazidime INTERPRETATION Susceptible Escherichia coli Ceftriaxone INTERPRETATION Susceptible Escherichia coli Piperacillin/Tazobactam INTERPRETATIO N Susceptible Escherichia coli Cephalexin INTERPRETATION Susceptible Escherichia coli Cefuroxime-axetil INTERPRETATION Susceptible Escherichia coli Cefdinir INTERPRETATION Susceptible Escherichia coli Ampicillin INTERPRETATION Resistant Escherichia coli Cefazolin INTERPRETATION Susceptible Escherichia coli Nitrofurantoin INTERPRETATION Susceptible Escherichia coli Gentamicin INTERPRETATION Susceptible Escherichia coli Trimethoprim with Sulfamethoxazole IN TERPRETATION Resistant Escherichia coli Meropenem INTERPRETATION Susceptible Escherichia coli Cefepime INTERPRETATION Susceptible Escherichia coli Ciprofloxacin INTERPRETATION Susceptible Escherichia coli Ceftazidime INTERPRETATION Susceptible Escherichia coli Ceftriaxone INTERPRETATION Susceptible Escherichia coli Piperacillin/Tazobactam INTERPRETATIO N Intermediate Escherichia coli Cephalexin INTERPRETATION Susceptible Escherichia coli Cefuroxime-axetil INTERPRETATION Susceptible Escherichia coli Cefdinir INTERPRETATION Susceptible us Andre Desai MD LAB MICROBIOLOGY - GENERAL ORD ERABLES Final Result [facility] ([place]) 1 [facility] [place] [address] * eGFR (12/29/2024 8:44 AM CDT) eGFR >90 >=60 mL/min/1. 73 m2 Comment: Interpretive Data Reference Interval Normal >/= 90 mL/min/1.73m2 Mildly decreased* 60 - 89 mL/min/1.73m2 Mildly to moderately decreased 45 - 59 mL/min/1.73m2 Moderately to severely decreased 30 - 44 mL/min/1.73m2 Severely decreased 15 - 29 mL/min/1.73m2 Kidney Failure < 15 mL/min/1.73m2 *Relative to young adult level Estimated glomerular filtration rate is determined by the 2020 CKD-EPI equation recommended by the National Kidney Foundation (A Unifying Approach to GFR Estimation: Recommendations of the NKF-ASK Task Force on Reassessing the Inclusion of Race in Diagnosing Kidney Disease, JASN 2020). The CKD-EPI equation should not be used for patients with unstable renal function and has not been validated in children and those over 70. Current interpretive data was last reviewed 2021. Blood 12/29/2024 8:44 AM CDT 12/29/2024 8:47 AM CDT us Andre Desai MD LAB BLOOD ORDERABLES Final Res ult [facility] ([place]) 1 [facility] [place] [address] * (ABNORMAL) Differential, auto (12/29/2024 8:44 AM CDT) Pathologist [facility] Neutrophil abs 9.39(H) 1.50 - 6.50 K/cumm Imm gran abs 0.11(H) 0.00 - 0.10 K/cumm [facility] ([place]) Lymphocyte abs 1.92 0.80 - 3.30 K/cumm [facility] ([place]) Monocyte abs 0.71 0.20 - 0.80 K/cumm [facility] ([place]) Eosinophil abs 0.22 0.00 - 0.50 K/cumm [facility] ([place]) Basophil abs 0.08 0.00 - 0.10 K/cumm [facility] ([place]) Neutrophil pct 75.6 % [facility] ([place]) Comment: Interpretive Data Percent cell count reference ranges are not reported, since discordance with absolute values may lead to misinterpretation of CBC data. Current Interpretive Data was last revised on 2017. Imm gran pct 0.9 % [facility] ([place]) Comment: Interpretive Data Percent cell count reference ranges are not reported, since discordance with absolute values may lead to misinterpretation of CBC data. Current Interpretive Data was last revised on 2017. Lymphocyte pct 15.4 % [facility] ([place]) Comment: Interpretive Data Percent cell count reference ranges are not reported, since discordance with absolute values may lead to misinterpretation of CBC data. Current Interpretive Data was last revised on 2017. Monocyte pct 5.7 % [facility] ([place]) Comment: Interpretive Data Percent cell count reference ranges are not reported, since discordance with absolute values may lead to misinterpretation of CBC data. Current Interpretive Data was last revised on 2017. Eosinophil pct 1.8 % [facility] ([place]) Comment: Interpretive Data Percent cell count reference ranges are not reported, since discordance with absolute values may lead to misinterpretation of CBC data. Current Interpretive Data was last revised on 2017. Basophil pct 0.6 % [facility] ([place]) Comment: Interpretive Data Percent cell count reference ranges are not reported, since discordance with absolute values may lead to misinterpretation of CBC data. Current Interpretive Data was last revised on 2017. Blood 12/29/2024 8:44 AM CDT 12/29/2024 8:47 AM CDT us Andre Desai MD LAB BLOOD ORDERABLES Final Res ult [facility] ([place]) 1 [facility] Department of Laboratories [place], [place] [id number] * (ABNORMAL) CBC with auto differential (12/29/2024 8:44 AM CDT) WBC 12.43(H) 3.80 - 9.90 K/cumm Hgb 13.1 11.9 - 15.5 g/dL [facility] ([place]) Hct 37.9 35.6 - 45.5 % [facility] ([place]) Plt 230 150 - 400 K/cumm [facility] ([place]) MPV 10.9 9.1 - 12.3 fL [facility] ([place]) RBC 4.40 3.90 - 5.20 M/cumm [facility] ([place]) MCV 86.1 81.3 - 96.4 fL [facility] ([place]) MCH 29.8 27.1 - 33.3 pg [facility] ([place]) MCHC 34.6 32.3 - 35.7 g/dL [facility] ([place]) RDW CV 12.8 11.1 - 14.9 % [facility] ([place]) RDW SD 40.8 35.7 - 48.1 fL [facility] ([place]) NRBC abs 0.04(H) 0.00 - 0.01 K/cumm [facility] ([place]) Blood 12/29/2024 8:44 AM CDT 12/29/2024 8:47 AM CDT us Andre Desai MD LAB BLOOD ORDERABLES Final Res ult [facility] ([place]) 1 [facility] [place] [address] * (ABNORMAL) Comprehensive metabolic panel (12/29/2024 8:44 AM CDT) Sodium 117(C) 135 - 145 mmol/L [facility] ([place]) Comment:Critical Result call ed by [email or web address] at 2024-12-29 10:10:14. Result Read Back by Ace Cotton (ER) Potassium, pl 3.9 3.3 - 4.9 mmol/L [facility] ([place]) Comment:Ace Cotton (ER) Chloride 84(L) 97 - 110 mmol/L [facility] ([place]) Comment:Ace Cotton (ER) CO2 19(L) 22 - 32 mmol/L [facility] ([place]) Comment:Ace Cotton (ER) Anion gap 14 2 - 15 mmol/L [facility] ([place]) Comment:Ace Cotton (ER) BUN 9 6 - 25 mg/dL [facility] ([place]) Creatinine 0.71 0.60 - 1.10 mg/dL [facility] ([place]) Comment:Ace Cotton (ER) Glucose 340(H) 70 - 199 mg/dL [facility] ([place]) Comment: Interpretive Data Fasting glucose >/= 126 mg/dl is diagnostic for diabetes. Fasting is defined as no caloric intake for at least 8 hours. Fasting glucose between 100 mg/dl to 125 mg/dl is diagnostic of prediabetes. In a patient with classic symptoms of hyperglycemia or hyperglycemic crisis, a random glucose >/= 200 mg/dl is diagnostic for diabetes. In the absence of unequivocal hyperglycemia, results should be confirmed by repeat testing. The classification and Diagnosis of Diabetes Diabetes Care 2021; 46: S19-S40. Current interpretive data was last revised 2022. Calcium 9.7 8.5 - 10.3 mg/dL [facility] ([place]) Bilirubin, total 0.3 0.1 - 1.2 mg/dL [facility] ([place]) Protein, pl 6.3(L) 6.5 - 8.5 g/dL [facility] ([place]) Comment:Ace Cotton (ER) Albumin 4.2 3.5 - 5.0 g/dL [facility] ([place]) Alk phos 98 40 - 130 Units/L [facility] ([place]) Comment:Ace Cotton (ER) ALT <5(L) 7 - 45 Units/L [facility] ([place]) Comment:Hemolysis present. R esults may be affected. AST 22 10 - 45 Units/L [facility] ([place]) Blood 12/29/2024 8:44 AM CDT 12/29/2024 8:47 AM CDT us Andre Desai MD LAB BLOOD ORDERABLES Final Res ult [facility] ([place]) 1 [facility] [place] [address] from Last 3 Months Insurance [facility] Advance Directives For more information, please contact: [phone] * Full Code (Latest Code Status on File) Date Activated Date Inactivated Comments 12/30/2024 12:16 AM 01/01/2025 7:45 PM * Full Code Date Activated Date Inactivated Comments 12/29/2024 9:55 PM 12/30/2024 12:16 AM Care Teams Field Sales Executive Relationship Specialty Start Date End Date Angelo Dickson MD [address] [place] [address] PCP - General Family Practice 12/29/24
--- OUTSIDE RECORDS SUMMARY | 2025-01-17 21:07 | XMS_ITS | Encounter Summary ---
Author Organization [facility] Address [address] [place] [address] Care Team Providers Care Automotive Design Layout Drafter Name Role Phone Angelo Dickson MD Primary Care Provider Encounter Details Date Type Department Care Team (Late st Contact Info) Description 10/31/2018 Abstract [facility]FL CONVERSION [address] [place], [place] [id number] , Generic Conversion, Social History Tobacco Use Types Packs/Day Years Used Date Smoking Tobacco: Never Assessed Comments Unknown Sex and Gender Information Value Date Recorded Sex Assigned at Not on file Legal Sex Female 11:07 PM APNS Gender Identity Not on file Sexual Orientation Not on file documented as of this encounter Plan of Treatment Not on file documented as of this encounter Visit Diagnoses Not on filedocumented in this encounter Care Teams Automotive Design Layout Drafter Relationship Specialty Start Date End Date Angelo Dickson MD [address] [place] [id number] PCP - General FAMILY PRACTICE 11/02/18 documented as of this encounter
--- NOTE | 2025-01-17 21:09 | PC.NURSE ---
pt ambulatory to bathroom at this time.
[2025-01-17 21:11] VITALS: BP 167/95; PULSE 114; RESP 20; TEMP 36.6; O2SAT 100
[2025-01-17] MEDS: KETOROLAC 30 MG/ML VIAL (*BKC) IM (21:22)
[2025-01-17 21:27] LABS: Add Urine Microscopic? YES; Appearance Urine Clear (Clear); Glucose Urine UA 3+ (Negative); Leukocyte Esterase Ur Negative LEU/UL (Negative); Nitrate Urine Positive (Negative); Specific Grav Ur 1.010 (1.010-1.020)
--- NOTE | 2025-01-17 21:28 | PC.NURSE ---
urine sent to lab. pt medicated per order. warm blanket provided for comfort and one also placed on patient back for attempted pain relief. call light within reach, visitor at bedside. update provided. RN monitoring.
[2025-01-17 21:29] LABS: Pregnancy On Board Control Positive
--- NOTE | 2025-01-17 21:41 | PC.NURSE ---
pt to Ct scan via wheelchair per electrical and radio mock up mechanic.
--- NOTE | 2025-01-17 21:45 | PC.NURSE ---
pt returned from imaging, awaiting results.
--- NOTE | 2025-01-17 21:53 | PC.NURSE ---
ERP Dr. Desai at bedside at this time, update provided.
--- NOTE | 2025-01-17 21:54 | ED.BACK ---
HPI - Back Pain/Injury General Chief Complaint: Back Pain/Injury Stated Complaint: back pain Time Seen by Provider: 01/17/25 21:07 Source: patient Mode of arrival: ambulatory Limitations: no limitations History of Present Illness HPI Narrative: 39-year-old with a history of hypertension diabetes, hypothyroidism, hyperlipidemia here with a complains of back pain which has been ongoing for the last several weeks. She denies any trauma. No history of bladder or bowel incontinence. Denies any fever. MD elicited complaint: back pain Onset (ago): week(s) (3) Timing: constant Severity: moderate Quality: aching Radiation: none Exacerbating factors: none Relieving factors: none Associated symptoms: denies other symptoms Related Data Home Medications ?Medication ?Instructions ?Recorded ?Confirmed ?Last Taken ?Type empagliflozin 10 mg tablet 10 mg PO DAILY 07/01/23 07/01/23 Unknown History (Jardiance) insulin glargine 100 unit/mL (3 30 unit subcut DAILY 07/01/23 07/01/23 Unknown History mL) subcutaneous pen (Lantus Solostar U-100 Insulin) insulin lispro 100 unit/mL 10 unit subcut DAILY 07/01/23 07/01/23 Unknown History subcutaneous pen lisinopril 5 mg tablet 5 mg PO DAILY 07/01/23 07/01/23 Unknown History Allergies Allergy/AdvReac Type Severity Reaction Status Date / Time No Known Allergies Allergy Verified 01/17/25 21:09 Review of Systems Review of Systems: All systems reviewed & are unremarkable except as noted in HPI and below Constitutional: Constitutional: Reports no additional constitutional complaints Eyes: Eyes: Reports no additional eye complaints ENT: Reports system reviewed and no additional complaints, except as documented Cardiovascular: Cardiovascular: Reports no additional cardiovascular complaints Respiratory: Respiratory: Reports no additional respiratory complaints Gastrointestinal: Gastrointestinal: Reports no additional gastrointestinal complaints Musculoskeletal: Musculoskeletal: Reports as per HPI PMFSH Past Medical History Medical History DKA, type 2 Peripheral neuropathy Diabetes mellitus Surgical History Surgical History Hx of cholecystectomy Previous section Family History Family History Father Hypertension Diabetes mellitus Mother Hypertension Diabetes mellitus Sibling Hypertension Diabetes mellitus Social History Social History Social History: smoker Smoking packs per day: 0.5 Smoking cigarettes per day: 10.0 Years smoked: 10 Smoking pack-years: 5.00 Smoking status: Current every day smoker Alcohol intake: former Substance use: never Do You Feel Safe in your Home?: Yes Lack of Transportation: No Lack of Food: Never True Current Housing: I Have Housing Concerned About Future Housing: No Difficulty Paying Gas/Electric Bills: No Difficulty Paying for Meds: No Currently Unemployed: No Education: High School Diploma/GED Difficulty w/ Childcare or Family Care: No Spiritual care concerns: No Exam Narrative: GENERAL: Well-appearing, well-nourished, and in no acute distress. HEAD: Normocephalic, atraumatic. EYES: PERRLA and EOMI. ENT: . Mucous membranes moist. NECK: Supple. CHEST: Clear to auscultation. No respiratory distress. HEART: Regular rate and rhythm. No murmur heard. Normal peripheral pulses. ABDOMEN: Soft, nontender, nondistended, normal active bowel sounds. EXTREMITIES: Normal range of motion. No edema. SKIN: Warm, dry, no rash. NEURO: No focal deficits. Alert and oriented x3. PSYCH: Normal mood and affect. Course Course Emergency Course: Patient was given Toradol IM 30 mg which seemed to help her pain. She was able to rest now. I did review the x-rays showed no evidence of DJD urinalysis is consistent with infection . Vital Signs Vital signs: Vital Signs Temperature 36.6 C 01/17/25 21:11 Pulse Rate 114 H 01/17/25 21:11 Respiratory Rate 01/17/25 21:11 Blood Pressure 167/95 H 01/17/25 21:11 Pulse Oximetry 100 01/17/25 21:11 Oxygen Delivery Room Air 01/17/25 21:11 Temperature 36.6 C 01/17/25 21:11 Pulse Rate 114 H 01/17/25 21:11 Respiratory Rate 20 01/17/25 21:11 Blood Pressure 167/95 H 01/17/25 21:11 Pulse Oximetry 100 01/17/25 21:11 Oxygen Delivery Room Air 01/17/25 21:11 MDM - Back Pain/Injury Lab Data Labs: Lab Results 01/17/25 Range/Units 21:18 Urine Color Light yellow (Yellow) Urine Appearance Clear (Clear) Urine pH 6.0 (5.0-8.0) Ur Specific [place] 1.010 (1.010-1.020) Urine Protein Trace H (Negative) Urine Glucose (UA) 3+ H (Negative) Urine Ketones Trace H (Negative) Ur Blood (Man) Trace-intact H (Negative) Urine Nitrate Positive H (Negative) Urine Bilirubin Negative (Negative) Urine Urobilinogen 0.2 (0.2-1.0) mg/dL Leukocyte Esterase Rfl Negative (Negative) ADRYAN/UL Urine RBC 0-2 (0-2) /hpf Urine WBC 10-15 H (0-3) /hpf Ur Squamous Epith Cells Rare (Few) /hpf Urine Bacteria 3+ H (None) /hpf Urine Test Negative Discharge Plan Discharge Clinical Impression: Back pain Qualifiers: Back pain location: back pain in other location Chronicity: unspecified Qualified Code(s): M54.89 - Other dorsalgia UTI (urinary tract infection) Qualifiers: Urinary tract infection type: site unspecified Hematuria presence: without hematuria Qualified Code(s): N39.0 - Urinary tract infection, site not specified Patient Disposition: Home Condition: Stable Instructions: Urinary Tract Infection in Women (ED), Back Pain (ED) Additional Instructions: continue home medication, drink plenty of fluids take antibiotic as prescribed Patient Language: Honduran Prescriptions: New ciprofloxacin HCl [Cipro] 500 mg tablet 500 mg PO Q12H Qty: 10 0RF naproxen sodium [Anaprox DS] 550 mg tablet 550 mg PO Q12H PRN (Reason: pain) Qty: 14 0RF No Action lisinopril 5 mg Tablet 5 mg PO DAILY insulin lispro 100 unit/mL insulin pen 10 unit SUBCUT DAILY Rx Instructions: with largest meal insulin glargine [Lantus Solostar U-100 Insulin] 100 unit/mL (3 mL) insulin pen 30 unit SUBCUT DAILY Jardiance 10 mg tablet 10 mg PO DAILY atorvastatin 40 mg tablet 40 mg PO HS Qty: 30 0RF Follow-up/Referrals: Angelo Dickson M.D. [Primary Care Provider, [facility]] Time of Disposition: 22:01
[2025-01-17 22:16] VITALS: BP 132/90; PULSE 105; RESP 16; TEMP 36.4; O2SAT 98
--- NOTE | 2025-01-21 15:22 | PC.NURSE ---
PTS FINAL URINE CULTURE CAME BACK POSITIVE FOR E COLI PER DR FRAUSTO PT IS TO STOP THE CIPRO AND START KEFLEX 500MG TID FOR 7 DAYS RX CALLED TO [facility] IN [place] MESSAGE LEFT FOR PT TO CALL ER
--- NOTE | 2025-01-22 16:51 | PC.NURSE ---
PT CONTACTED AND NOTIFIED OF ANTIBIOTIC BEING CHANGE TO KEFLEX AND IT WAS CALLED INTO [facility] IN [place] PT VERBALIZED UNDERSTANDING
== END 2025-01-17 22:17 | disposition home or self-care (01) ==
PROVIDERS: Emergency Provider Family Medicine; PCP Family Medicine
DX: N39.0 Urinary tract infection, site not specified (principal); M54.89 Other dorsalgia; I10 Essential (primary) hypertension; E03.9 Hypothyroidism, unspecified; E11.9 Type 2 diabetes mellitus without complications; E78.5 Hyperlipidemia, unspecified; F17.210 Nicotine dependence, cigarettes, uncomplicated
CPT/HCPCS: 72100; 81001; 81025; 96372; 99283; J1885

== ENCOUNTER 2025-05-11 08:11 | Outpatient (CLI) | payer OTHER, SELFPAY ==
--- NOTE | ~2025-05-11 | US_ITS ---
EXAM/PROCEDURE: US arterial ankle brachial ind HISTORY: Wound of R2 COMPARISON: None available. TECHNIQUE: TATUM FINDINGS: Right and left brachial systolic pressure readings are 117 and 138 Right and left lower terminate segmental pressure readings are as follows: Dorsalis pedis: 126 and 1:30 Posterior tibial: 1:30 and 134 Great toe: 123 and 125 Right and left ABIs are 0.94 and 0.97 Right and left TBI's are 0.89, 0.91 Plethysmography appears normal. IMPRESSION: 1. Both ABIs within normal limits. 2. Systolic pressure gradient greater than 20 mmHg in the upper extremities raises possibility of proximal or great vessel arterial disease. Correlate with bilateral upper extremity blood pressure measurements in clinic. Reviewed, dictated and finalized at location A. ING BED OPERATOR IMPRESSION: 1. Both ABIs within normal limits. 2. Systolic pressure gradient greater than 20 mmHg in the upper extremities bloom ses possibility of proximal or great vessel arterial disease. Correlate with bi lateral upper extremity blood pressure measurements in clinic.
--- OUTSIDE RECORDS SUMMARY | 2025-05-11 08:26 | XMS_ITS | Encounter Summary ---
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
--- OUTSIDE RECORDS SUMMARY | 2025-05-11 08:26 | XMS_ITS | Clinical Summary ---
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 Gender Identity Not on file Sexual Orientation Not on file Last Filed Vital Signs Vital Sign Reading Time Taken Comments Blood Pressure 143/102 07/29/2021 9:49 PM CERTIFIED MEDICAL TECHNICIAN ASSISTANT Pulse 108 07/29/2021 9:49 PM CERTIFIED MEDICAL TECHNICIAN ASSISTANT Temperature 36.8 C (98.3 F) 07/29/2021 9:49 PM CERTIFIED MEDICAL TECHNICIAN ASSISTANT Respiratory Rate 18 07/29/2021 9:49 PM CERTIFIED MEDICAL TECHNICIAN ASSISTANT Oxygen Saturation 100% 07/30/2021 1:30 AM CERTIFIED MEDICAL TECHNICIAN ASSISTANT Inhaled Oxygen Concentration - - Weight 75.3 kg (166 lb) 07/29/2021 9:49 PM CERTIFIED MEDICAL TECHNICIAN ASSISTANT Height 168.9 cm (5' 6.5) 07/29/2021 9:49 PM CERTIFIED MEDICAL TECHNICIAN ASSISTANT Body Mass Index 26.39 07/29/2021 9:49 PM CERTIFIED MEDICAL TECHNICIAN ASSISTANT Plan of Treatment Health Maintenance Due Date [...] with HPV 2015 COVID-19 Vaccine ( - 2024- season) 2025 Influenza Adult (#1) 2025 Mammogram Screening 2025 Hepatitis A Vaccines Aged Out No long er eligible based on patient's age to complete this topic Meningococcal B Vaccine Aged Out No l onger eligible based on patient's age to complete this topic Meningococcal Vaccine Aged Out No milka koko eligible based on patient's age to complete this topic RSV Immunizations Under 20 Months Aged Out No longer eligible based on patient's age to complete this topic Insurance Care Teams Bar Welder Relationship Specialty Start Date End Date Angelo Dickson MD PCP - General FAMILY PRACTICE 11/02/18
--- OUTSIDE RECORDS SUMMARY | 2025-05-11 08:27 | XMS_ITS | Clinical Summary ---
Author Organization [facility] Address [address] [place] [address] Care Team Providers Care Inside Sales Executive Name Role Phone Angelo Dickson MD Primary Care Provider [phone] Allergies No known active allergies Medications atorvastatin [...] total) by mouth daily 07/13/19 22 Active magnesium citrate solutionIndications :constipation Take 296 mL by mouth daily as needed (As needed for constipation) for up to 14 days 988 mL 1 01/02/20 25 Active lactulose (CEPHULAC) 20 gram packet Take 1 packet (20 g total) by mouth 3 (three) times a day for 5 days 15 packet 01/02/20 25 Active icosapent ethyL (VASCEPA) 1 gram capsule Take 2 capsules (2 g total) by mouth 2 (two) times a day 360 capsule 3 01/14/20 25 2025 Active glucose 4 gram chewable tabletIndications:T ype 2 diabetes mellitus with hyperglycemia, with long-term current use of insulin (HCC) Take 4 tablets (16 g total) by mouth as needed for low blood sugar 50 tablet 12 01/14/20 25 2025 Active blood-glucose meter kitIndications:Type 2 diabetes mellitus with hyperglycemia, with long-term current use of insulin (HCC) Use four times daily as directed for monitoring of blood sugar for diabetes 1 kit 01/14/20 25 Active blood glucose diagnostic (glucose blood) stripIndications:Ty pe 2 diabetes mellitus with hyperglycemia, with long-term current use of insulin ([facility]) Check blood sugar 4x times a day or as directed 100 each 01/14/20 25 Active lancets miscIndications:Typ e 2 diabetes mellitus with hyperglycemia, with long-term current use of insulin ([facility]) 1 each by other route 4 (four) times a day 100 each 01/14/20 25 Active levothyroxine (SYNTHROID) 175 mcg tablet Take 1 tablet (175 mcg total) by mouth transition program manager before breakfast 30 tablet 01/14/20 25 Active fenofibrate nanocrystallized (TRICOR) 48 mg tablet Take 1 tablet (48 mg total) by mouth daily 30 tablet 01/14/20 25 Active insulin lispro (HumaLOG, ADMELOG) 100 unit/mL pen for injection Take 10 units three times daily with meals plus sliding scale 1 unit for every 50>150. Maximum total daily dose 50 units 45 mL 3 01/15/20 25 Active cyclobenzaprine (FLEXERIL) 10 mg tablet Take 1 tablet (10 mg total) by mouth 2 (two) times a day as needed for muscle spasms 20 tablet 01/21/20 25 Active ibuprofen (ADVIL,MOTRIN) 800 mg tablet Take 1 tablet (800 mg total) by mouth 3 (three) times a day 21 tablet 01/21/20 25 Active ondansetron (ZOFRAN) 4 mg tablet Take 1 tablet (4 mg total) by mouth every 6 (six) hours 12 tablet 01/21/20 25 Active pen needle, diabetic 32 gauge x 5/32 needle Use to inject insulin up to 4times/day. 150 each 11 02/16/20 25 Active metFORMIN (GLUCOPHAGE) 1,000 mg tablet Take 1 tablet (1,000 mg total) by mouth 2 (two) times a day with meals 180 tablet 3 05/03/20 25 Active metFORMIN (GLUCOPHAGE) 1,000 mg tablet Take 1 tablet (1,000 mg total) by mouth 2 (two) times a day with meals 2024 Discontin ued(Reord er) FreeStyle Yoon 3 Plus Sensor deviceIndications:T ype 2 diabetes mellitus with hyperglycemia, with long-term current use of insulin (HCC) 1 Device continuously E11.65 6 each 4 01/14/20 25 2024 Active Problems Problem Noted Date Diagnosed Date Type 2 diabetes mellitus wit h hyperglycemia, with long-term current use of insulin 01/13/2025 Other specified hypothyroidism 01/13/2025 Rash 12/31/2024 Hypertriglyceridemia 12/31/2024 Hyponatremia 12/29/2024 Encounters Date Type Department Care Team Description 2025 Telephone [facility] Medical [facility] Diabetes Endocrine Care at [address] [phone] Irina Guevara, DO 02/16/2025 Telephone [facility] Diabetes Endocrine Care at [address] [phone] Irina Guevara, DO 02/15/2025 2:00 PM CDT Office Visit [facility] Diabetes Endocrine Care at [address] [phone] Irina Guevara, DO Type 2 diabetes mellitus with hyperglycemia, with long-term current use of insulin (HCC) (Primary Dx) from Last 3 Months Medical History Medical History Date Comments Type 2 diabetes mellitus Hypothyroidism Hypertriglyceridemia Social History Tobacco Use Types Packs/Day Years Used Date Smoking Tobacco: Every Day Cigarettes [facility] Utilities Answer Date Recorded In the past 12 months has [employer], gas, oil, or water [employer] threatened to shut off services in your [...] often do you attend chur ch or orthodox services? Never 12/30/2024 Do you belong to any clubs o r organizations such as adventism groups, unions, fraternal or athletic groups, or [...] any time in the past 12 [facility], were you homeless or living in a [place] [facility] care facility (including now)? No 12/30/2024 Personal Safety Answer Date Recorded Have you ever been in or are you currently in a harmful physical or emotional relationship or is someone making you feel afraid or unsafe? Denies 01/19/2025 Comments No Sex and Gender Information Value Date Recorded Sex Assigned at Not on file Legal Sex Female 11:06 AM TRANSCRIPTION SPECIALIST Gender Identity Not on file Sexual Orientation Not on file Last Filed Vital Signs Vital Sign Reading Time Taken Comments Blood Pressure 100/64 02/15/2025 2:13 PM CDT Pulse 110 02/15/2025 2:13 PM CDT Temperature 36.4 C (97.5 F) 01/19/2025 10:20 PM CDT Respiratory Rate 18 01/19/2025 10:2 0 PM CDT Oxygen Saturation 97% 01/20/2025 2:15 AM CDT Inhaled Oxygen Concentration - - Weight 72.5 kg (159 lb 12.8 oz) 02/15/2025 2:13 PM CDT Height 167.6 cm (5' 5.98) 02/15/2025 2:13 PM CD T Body Mass Index 25.81 02/15/2025 2:13 PM CDT Plan of Treatment Health Maintenance Due Date Last Done Comments Albumin Creatinine Ratio, Urine 1985 Breast Cancer Screening-Mammogram 1985 Cervical Cancer Screening 1985 Depression Screening 1985 Hepatitis C Screening 1985 Foot Exam 1985 DTaP/Tdap/Td Vaccine (6 - Tdap) 1996 02/01/1991, 02/24/1989, 06/28/1986, Additional history exists Varicella Vaccines (1 of 2 - 13+ 2-dose series) 1998 Regular Well Visit/Exam 18-64 2003 Pneumococcal vaccine <65 (1 of 2 - PCV) 2004 HPV Vaccines (1 - 3-dose SCD M series) 2012 Covid-19 Vaccine (3 - 2024-2 6 season) 2025 04/30/2021, 08/06/2020 Influenza Vaccine (#1) 2025 Hemoglobin A1C 07/16/2025 01/13/2025 Dilated Eye Exam 08/25/2025 08/25/2024 Lipid Panel 01/13/2026 01/13/2025, 08/0 12/2024, 12/30/2024 eGFR 01/19/2026 01/19/2025, 08/0 01/2025, 12/31/2024, Additional history exists Hepatitis B Screening Completed 09/07/1996, 997 Procedures Procedure Name Priority Date/Time Associated Diagnosis Comments EGFR STAT 01/19/2025 11:00 PM CDT LIPID PANEL Routine 01/13/2025 1:47 PM CDT Type 2 diabetes mellitus with hyperglycemia, with long-term current use of insulin (HCC) POCT HEMOGLOBIN A1C Routine 01/13/2025 1 :24 PM CDT Type 2 diabetes mellitus with hyperglycemia, with long-term current use of insulin (HCC) DIABETIC EYE EXAM Routine 08/25/2024 from Last 3 Months or Most Recently Relevant to Health Maintenance Results * eGFR (01/19/2025 11:00 PM CDT) eGFR >90 >=60 mL/min/1. 73 m2 [...] interpretive data was last reviewed 2021. Blood 01/19/2025 11:0 0 PM CDT 01/19/2025 11:09 PM CDT us Susanne ZAIDI LAB BLOOD ORDERABLES Final Resu lt [facility] Department [place] [address] * (ABNORMAL) Lipid panel (01/13/2025 1:47 PM [...] last revised on 2018. Testing performed by: , [address] [place] [address]., [id number] Triglycerides 1,536(H) <=149 mg/dL [facility] Comment: Interpretive Data Ages < [...] last revised on 2018. Testing performed by: , [address] [place] [address]., [id number] HDL 26(L) >=40 mg/dL [facility] Comment: Interpretive [...] last revised on 2018. Testing performed by: [address] [address] LDL, calculated See Comment <=129 mg/dL [facility] [...] last revised on 2024. Testing performed by: [address] [address] Non-HDL Cholesterol 338 mg/dL [facility] Comment: Interpretive Data Ages [...] last revised on 2018. Testing performed by: [address] [address] Chol/HDL ratio 14 [facility] Comment:Testing performed by : [address] [address] Blood 01/13/2025 1:47 PM CDT 01/13/2025 6:15 PM CDT Irina Guevara DO LAB BLOOD ORDERABLES Final Result [facility] [address] [place] [address] [place] [address] * (ABNORMAL) POCT hemoglobin A1c (01/13/2025 1:24 PM CDT) Hemoglobin A1C, POC 13.1(A) 4.0 - 5.6 % Blood 01/13/2025 1:24 PM CDT Irina Marshel DO POINT OF CARE TEST ORDERABL ES Final Result * Diabetic Eye Exam (08/25/2024) 08/25/2024 Historical Provider HEALTH MAINTENANCE Final Result from Last 3 Months or Most Recently Relevant to Health Maintenance Insurance [facility] [place] [address] Advance Directives For more information, please contact: [phone] * Full Code (Latest Code Status on File) Date Activated Date Inactivated Comments 12/30/2024 12:16 AM 01/01/2025 7:45 PM * Full Code Date Activated Date Inactivated Comments 12/29/2024 9:55 PM 12/30/2024 12:16 AM Care Teams Inside Sales Executive Relationship Specialty Start Date End Date Angelo Dickson MD [address] [place] [address] PCP - General Family Practice 12/29/24
== END 2025-05-11 08:12 | disposition home or self-care (01) ==
PROVIDERS: PCP Family Medicine; Visit Provider Family Medicine
DX: S91.301A Unspecified open wound, right foot, initial encounter (principal)
CPT/HCPCS: 93922